=== PATIENT | female | born 1940 | race Caucasian/White ===

== ENCOUNTER → 2018-11-03 11:53 | Outpatient (CLI) | payer OTHER, SELFPAY ==
--- NOTE | 2018-11-03 | DI.CT.S_ITS ---
PROCEDURE: CT ABDOMEN PELVIS WO CON INDICATIONS: ANEMIA UNSPECIFIED TECHNIQUE: After the administration of oral contrast, 5 mm thick sections acquired from the diaphragms to the symphysis. 5 mm coronal and sagittal reformats were performed. For radiation dose reduction, the following was used: automated exposure control, adjustment of mA and/or kV according to patient size. COMPARISON: None. FINDINGS: Image quality: Excellent. ABDOMEN: Lung bases: Emphysematous changes. Heart size is normal. Solid organs: Liver is enlarged and is unremarkable. Gallbladder is unremarkable. Pancreas is normal in size. Spleen is normal in size. No adrenal nodules. Both kidneys are normal in size, without hydronephrosis or nephrolithiasis. Peritoneum and bowel: Bowel loops demonstrate normal wall thickness and caliber. No free fluid or air. Nodes and vessels: No retroperitoneal or mesenteric adenopathy by size criteria. Aorta and inferior vena cava are normal in size. Miscellaneous: No ventral hernias. Large hiatal hernia. There is a low-density structure along the posterior left lateral aspect of the stomach which appears to extend to the gastroesophageal junction. There is no surrounding inflammatory change. PELVIS: Genitourinary: Bladder wall thickness is normal. Miscellaneous: No inguinal hernias or adenopathy. Bones: No suspicious bony lesions. No vertebral body compression fractures. IMPRESSION: 1. Large hiatal hernia. In addition, there is a soft tissue density along the posterior lateral aspect of the stomach which traverses the gastroesophageal junction. This may be a focal loop of bowel. There is no obstruction. Dictated by: Юлия Molina M.D. on 11/03/2018 at 15:53 Approved by: Юлия Molina M.D. on 11/03/2018 at 16:06
== END ==
PROVIDERS: PCP Student in an Organized Health Care Education/Training Program; Visit Provider Student in an Organized Health Care Education/Training Program
DX: D64.9 Anemia, unspecified (principal); K44.9 Diaphragmatic hernia without obstruction or gangrene
CPT/HCPCS: 74176

== ENCOUNTER 2018-11-07 12:39 | Emergency (ER) | payer OTHER, SELFPAY ==
[2018-11-07 12:40] VITALS: BP 136/66; PULSE 74; RESP 18; TEMP 37.1; O2SAT 93
[2018-11-07 13:00] VITALS: BP 120/62; PULSE 71; RESP 17; O2SAT 97
--- NOTE | 2018-11-07 13:03 | DI.RAD.S_ITS ---
PROCEDURE: XR CHEST 1V INDICATIONS: chest pain TECHNIQUE: One view of the chest was acquired. COMPARISON: None. FINDINGS: Surgical changes and devices: None. Lungs and pleura: Lungs are clear. No pleural effusions or pneumothorax. There may be a calcified nodule within the right mid lung. Mediastinum: Mediastinal contours appear normal. Heart size is normal. There is aortic atherosclerosis. There may be a hiatal hernia. Bones and chest wall: No suspicious bony lesions. Overlying soft tissues appear unremarkable. IMPRESSION: 1. No acute cardiopulmonary process is suspected. 2. Probable hiatal hernia. Dictated by: Isaias Berger M.D. on 11/07/2018 at 12:20 Approved by: Isaias Berger M.D. on 11/07/2018 at 12:26
[2018-11-07 13:24] VITALS: BP 120/62; PULSE 71; RESP 20; O2SAT 93
[2018-11-07 13:24] LABS: Bacteria Urine None Seen; RBC Urine None Seen (0-5/HPF)
[2018-11-07 13:25] LABS: Appearance Urine UA CLEAR; Bilirubin Urine UA NEGATIVE (NEGATIVE); Color Urine UA YELLOW; Glucose Urine UA NEGATIVE (Negative); Ketones Urine UA NEGATIVE (NEGATIVE); Leukocyte Esterase Urine UA NEGATIVE (NEGATIVE); Nitrite Urine UA NEGATIVE (Negative); Occult Blood Urine UA NEGATIVE (Negative); Protein Urine UA NEGATIVE (Negative); Specific Gravity Urine UA <=1.005 (1.000-1.035); Urobilinogen Urine UA 0.2 E.U./dL (0.2)
[2018-11-07 13:29] LABS: pH Urine UA 6.5 (4.5-8.0)
[2018-11-07 13:33] LABS: Culture Indicated Urine Cult Not Indicated; Squamous Epithelial Cell Urine 0-1 /HPF (0-5/HPF); WBC Urine 0-1/HPF (0-5/HPF)
[2018-11-07 13:36] LABS: Prothrombin Time 11.2 SECONDS (10.1-12.7)
[2018-11-07 13:38] LABS: PTT Partial Thromboplastin Tim 31 SECONDS (26.4-36.2)
[2018-11-07 13:41] LABS: HEMOLYSIS < 15 (0-50); Sodium 138 mmol/L (137-145)
[2018-11-07 13:42] LABS: Add Manual Diff / Slide Review NO; Basophils Absolute Auto 200 /uL (0-100); Basophils Percent Auto 3.8 % (0-2); Eosinophils Absolute Auto 200 /uL (0-450); Eosinophils Percent Auto 3.5 % (2-4); Hematocrit 31.9 % (36-46); Hemoglobin 10.2 g/dL (12.0-16.0); Lymphocytes Absolute Auto 1100 /uL (1100-4500); Lymphocytes Percent Auto 19.5 % (25-40); Mean Corpuscular Hemoglobin 23.2 PG (26-34); Mean Corpuscular Volume 72.4 fL (80-100); Monocytes Absolute Auto 500 /uL (0-900); Monocytes Percent Auto 8.1 % (3-14); Neutrophils Absolute Auto 3800 /uL (1500-7000); Neutrophils Percent Auto 65.1 % (50-75); Platelet Count 498 X10^3/uL (150-400); Red Blood Cell Count 4.41 X10^6/uL (4.0-5.2); Red Cell Distribution Width 29.6 % (11.6-14.8); White Blood Cell Count 5.9 X10^3/uL (4.5-11.0)
[2018-11-07 13:44] LABS: Alanine Aminotransferase 20 IU/L (9-52); Albumin 3.9 g/dL (3.5-5.0); Albumin Globulin Ratio 1.4 (1.0-2.8); Alkaline Phosphatase 68 U/L (38-126); Aspartate Aminotransferase 24 IU/L (14-36); Bilirubin Total 0.3 mg/dL (0.2-1.3); Blood Urea Nitrogen 11 mg/dL (7-17); Calcium 9.5 mg/dL (8.4-10.2); Carbon Dioxide 28 mmol/L (22-32); Chloride 101 mmol/L (98-107); Creatine Kinase 34 U/L (30-135); Estimated Glomerular Filt Rate > 60.0 mL/min (>60); Globulin 2.8 g/dL (1.7-4.1); Glucose 95 mg/dL (80-110); Lipase 83 U/L (23-300); Potassium 4.4 mmol/L (3.4-5.1); Total Protein 6.7 g/dL (6.3-8.2)
[2018-11-07 13:56] LABS: Troponin I < 0.012 ng/mL (0.01-0.034)
[2018-11-07 13:59] VITALS: BP 139/82; PULSE 70; RESP 20; O2SAT 93
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
[2018-11-07 14:01] LABS: Procalcitonin < 0.05 ng/mL (<0.5)
[2018-11-07 14:02] LABS: B Type Natriuretic Peptide < 100 (<100)
[2018-11-07 14:10] LABS: RBC Morphology NR
[2018-11-07 14:11] LABS: Anisocytosis 2+; Poikilocytosis 2+
--- NOTE | 2018-11-07 16:13 | CM.SWNOTE ---
[employer] Note: Received call from ED staff requesting [employer] for consult for community resources. Patient is 77yr old female brought in by her family with increased agitation. Patient's spouse Juliocesar and daughter/Chayito at bedside. Patient with h/o parkinson's. History: Patient currently moved to [facility] in June 2018 from [place] to be closer to her immediate family. Patient diagnosed with Parkinson's recently and has appointment to see neurologist 11-15-18. PCP listed is Viktoria Martines. Patient alert and oriented x2 at time of visit. Patient denies SI/HI but family does report that patient has mentioned ending everything in the recent past. Patient does admit to being burden to her family. Spouse very emotional during visit. Patient cleared to return to [facility] with additional assisted services. Family comfortable returning home today. Spoke with family about techniques to minimize over stimulation. Family appreciative. They plan to keep close eye on patient and are aware of additional assistance if needed. Placed call to [facility], spoke with nurse/Jazz faxed emergency records to her at [phone]. P: Return to [facility] Assisted Living today. MILLICENT Gudino
== END 2018-11-07 15:47 | disposition home or self-care (01) ==
PROVIDERS: Emergency Provider Emergency Medicine; PCP Student in an Organized Health Care Education/Training Program
DX: G20 Parkinson's disease (principal)
CPT/HCPCS: 36591; 71045; 80053; 81001; 82550; 83605; 83690; 83735; 83880; 84145; 84484; 85025; 85610; 85730; 93005; 99283; 99285

== ENCOUNTER → 2019-05-04 14:59 | Outpatient (ROUT) | payer MEDICARE, SELFPAY ==
[2019-05-04 15:22] LABS: Add Manual Diff / Slide Review NO; Basophils Absolute Auto 100 /uL (0-100); Basophils Percent Auto 1.5 % (0-2); Eosinophils Absolute Auto 100 /uL (0-450); Eosinophils Percent Auto 2.3 % (2-4); Hematocrit 42.3 % (36-46); Hemoglobin 14.1 g/dL (12.0-16.0); Lymphocytes Absolute Auto 1300 /uL (1100-4500); Lymphocytes Percent Auto 19.9 % (25-40); Mean Corpuscular HGB Conc 33.4 % (30-36); Mean Corpuscular Hemoglobin 29.5 PG (26-34); Mean Corpuscular Volume 88.3 fL (80-100); Monocytes Absolute Auto 600 /uL (0-900); Neutrophils Absolute Auto 4200 /uL (1500-7000); Neutrophils Percent Auto 66.3 % (50-75); Platelet Count 298 X10^3/uL (150-400); Red Blood Cell Count 4.79 X10^6/uL (4.0-5.2); Red Cell Distribution Width 15.4 % (11.6-14.8); White Blood Cell Count 6.3 X10^3/uL (4.5-11.0)
== END ==
PROVIDERS: PCP Student in an Organized Health Care Education/Training Program; Visit Provider Internal Medicine
DX: D64.9 Anemia, unspecified (principal)
CPT/HCPCS: 85025

== ENCOUNTER → 2019-06-15 10:07 | Outpatient (CLI) | payer MEDICARE, SELFPAY ==
[2019-06-15 11:30] LABS: Add Manual Diff / Slide Review NO; Basophils Absolute Auto 100 /uL (0-100); Basophils Percent Auto 1.8 % (0-2); Eosinophils Absolute Auto 100 /uL (0-450); Eosinophils Percent Auto 2.5 % (2-4); Hematocrit 42.2 % (36-46); Hemoglobin 14.3 g/dL (12.0-16.0); Lymphocytes Absolute Auto 1100 /uL (1100-4500); Lymphocytes Percent Auto 20.8 % (25-40); Mean Corpuscular Hemoglobin 30.1 PG (26-34); Mean Corpuscular Volume 88.6 fL (80-100); Monocytes Absolute Auto 600 /uL (0-900); Monocytes Percent Auto 11.7 % (3-14); Neutrophils Absolute Auto 3300 /uL (1500-7000); Neutrophils Percent Auto 63.2 % (50-75); Platelet Count 290 X10^3/uL (150-400); Red Blood Cell Count 4.76 X10^6/uL (4.0-5.2); Red Cell Distribution Width 14.6 % (11.6-14.8); White Blood Cell Count 5.2 X10^3/uL (4.5-11.0)
[2019-06-15 11:57] LABS: INR 0.9 (0.9-1.3); Prothrombin Time 10.6 SECONDS (10.1-12.7)
[2019-06-15 12:00] LABS: PTT Partial Thromboplastin Tim 31 SECONDS (26.4-36.2)
== END ==
PROVIDERS: PCP Student in an Organized Health Care Education/Training Program; Referring Provider Psychiatry & Neurology Neurology; Visit Provider Psychiatry & Neurology Neurology
DX: Z01.818 Encounter for other preprocedural examination (principal); G93.89 Other specified disorders of brain; R26.89 Other abnormalities of gait and mobility; N39.41 Urge incontinence
CPT/HCPCS: 36415; 85025; 85610; 85730

== ENCOUNTER → 2019-12-14 13:14 | Outpatient (ROUT) | payer MEDICARE, SELFPAY ==
[2019-12-14 13:36] LABS: Add Manual Diff / Slide Review NO; Basophils Absolute Auto 100 /uL (0-100); Eosinophils Absolute Auto 200 /uL (0-450); Eosinophils Percent Auto 3.2 % (2-4); Hemoglobin 13.6 g/dL (12.0-16.0); Lymphocytes Absolute Auto 1600 /uL (1100-4500); Lymphocytes Percent Auto 25.3 % (25-40); Mean Corpuscular HGB Conc 33.1 % (30-36); Mean Corpuscular Hemoglobin 29.4 PG (26-34); Mean Corpuscular Volume 88.8 fL (80-100); Monocytes Absolute Auto 600 /uL (0-900); Monocytes Percent Auto 9.9 % (3-14); Neutrophils Absolute Auto 3900 /uL (1500-7000); Neutrophils Percent Auto 60.6 % (50-75); Platelet Count 322 X10^3/uL (150-400); Red Blood Cell Count 4.61 X10^6/uL (4.0-5.2); Red Cell Distribution Width 14.3 % (11.6-14.8); White Blood Cell Count 6.4 X10^3/uL (4.5-11.0)
[2019-12-14 13:43] LABS: Alanine Aminotransferase 13 IU/L (<35); Albumin 4.2 g/dL (3.5-5.0); Albumin Globulin Ratio 1.4 (1.0-2.8); Alkaline Phosphatase 85 U/L (38-126); Aspartate Aminotransferase 25 IU/L (14-36); BUN Creatinine Ratio 41.2 (6-22); Bilirubin Total 0.5 mg/dL (0.2-1.3); Blood Urea Nitrogen 21 mg/dL (7-17); Calcium 9.6 mg/dL (8.4-10.2); Carbon Dioxide 32 mmol/L (22-32); Chloride 104 mmol/L (98-107); Cholesterol 196 mg/dL (140-199); Estimated Glomerular Filt Rate > 60.0 mL/min (>60); Globulin 2.9 g/dL (1.7-4.1); Glucose 84 mg/dL (80-110); HDL Cholesterol 68 mg/dL (40-60); HEMOLYSIS < 15 (0-50); LDL Cholesterol Calculated 112 mg/dL (<100); Potassium 4.6 mmol/L (3.4-5.1); Sodium 142 mmol/L (137-145); Total Protein 7.1 g/dL (6.3-8.2); Triglycerides 82 mg/dL (35-150)
== END ==
PROVIDERS: PCP Student in an Organized Health Care Education/Training Program; Visit Provider Student in an Organized Health Care Education/Training Program
DX: E78.00 Pure hypercholesterolemia, unspecified (principal)
CPT/HCPCS: 80053; 80061; 85025

== ENCOUNTER 2020-07-06 22:15 | Emergency (ER) | payer MEDICARE, SELFPAY ==
[2020-07-06] VITALS (7 sets, daily range): BP systolic 129–158; BP diastolic 60–72; PULSE 80–85; RESP 18–20; TEMP 37.3; O2SAT 93–94; BMI 22.6
[2020-07-06 22:37] LABS: Add Manual Diff / Slide Review NO; Basophils Absolute Auto 100 /uL (0-100); Basophils Percent Auto 0.9 % (0-2); Eosinophils Absolute Auto 200 /uL (0-450); Eosinophils Percent Auto 2.1 % (2-4); Hematocrit 40.2 % (36-46); Hemoglobin 13.5 g/dL (12.0-16.0); Lymphocytes Absolute Auto 1900 /uL (1100-4500); Lymphocytes Percent Auto 19.1 % (25-40); Mean Corpuscular HGB Conc 33.6 % (30-36); Mean Corpuscular Hemoglobin 29.8 PG (26-34); Mean Corpuscular Volume 88.6 fL (80-100); Monocytes Absolute Auto 1300 /uL (0-900); Monocytes Percent Auto 12.9 % (3-14); Neutrophils Absolute Auto 6400 /uL (1500-7000); Platelet Count 294 X10^3/uL (150-400); Red Blood Cell Count 4.54 X10^6/uL (4.0-5.2); Red Cell Distribution Width 15.2 % (11.6-14.8); White Blood Cell Count 9.8 X10^3/uL (4.5-11.0)
--- NOTE | 2020-07-06 22:44 | ED.GENADULT ---
HPI - General Adult General Chief complaint: GI Bleed Stated complaint: GI bleed Time Seen by Provider: 07/06/20 22:16 Source: patient, family and EMS Mode of arrival: EMS Limitations: other (Confusion) History of Present Illness HPI narrative: Patient is a 79-year-old female who 10 days ago was admitted to the [facility] here locally. She was brought to the emergency department today because it was reported that 1 hour prior to arrival she had an episode where she was vomiting and there was concern about blood being in the vomit. Patient is not on anticoagulation. She is a DNR/DNI with limited medical interventions. Her paperwork is with her today. Patient stated that she was brought here to the emergency department for evaluation of symptoms that she was having. When I asked her to clarify with these were she stated that she was having some abdominal discomfort and then had a ?episode ?where she vomited several times. She currently denies any nausea. She denies any change in her bowel habits. She denies any abdominal discomfort. Related Data Home Medications Medication Instructions Recorded Confirmed albuterol sulfate [Ventolin HFA] 1 puff INHALATION PRN PRN 11/07/18 11/07/18 docusate sodium [Stool Softener] 100 mg PO DAILY 11/07/18 11/07/18 ferrous sulfate 325 mg PO DAILY 11/07/18 11/07/18 fluticasone propion-salmeterol 1 inh INHALATION BID 11/07/18 11/07/18 [Advair Diskus] glucosamine-chondroitin [Osteo 1 tab PO DAILY 11/07/18 11/07/18 Bi-Flex] multivitamin 1 tab PO DAILY 11/07/18 11/07/18 ranitidine HCl 150 mg PO BEDTIME 11/07/18 11/07/18 trospium 20 mg PO QAM 11/07/18 11/07/18 trospium 40 mg PO QPM 11/07/18 11/07/18 Previous Rx's Medication Instructions Recorded omeprazole magnesium [Prilosec OTC] 20 mg PO DAILY #30 tab 07/07/20 Allergies Allergy/AdvReac Type Severity Reaction Status Date / Time oxybutynin Allergy Unknown Verified 11/07/18 14:00 Review of Systems Constitutional Constitutional: Denies fatigue and Denies headache(s) ENT Ears, Nose, Mouth, and Throat: Denies headache(s) Cardiovascular Cardiovascular: Denies chest pain and Denies dyspnea Respiratory Respiratory: Denies dyspnea Gastrointestinal Gastrointestinal: Denies abdominal pain, Denies melena, Denies hematochezia, Denies change in bowel habits, Reports nausea (Prior to arrival but not currently) and Reports vomiting (Prior to arrival but not currently) Genitourinary Genitourinary: Denies dysuria Genitourinary: Denies dysuria Integumentary/Breasts Skin/Breast: Denies rash Neurologic Neurologic: Denies behavioral changes and Denies headache(s) Psychiatric Psychiatric: Denies behavioral changes Endocrine Endocrine: Denies fatigue Hematologic/Lymphatic On Anticoagulants: No Allergic/Immunologic Allergic/Immunologic: Reports system reviewed and no additional complaints, except as documented Patient History Medical History Atherosclerosis Atrial fibrillation COPD (chronic obstructive pulmonary disease) Depression Hernia Low back pain Mild cognitive impairment Osteoporosis Parkinson disease Surgical History (Updated 11/07/18 @ 14:02 by Meg Mccarthy RN) H/O left inguinal hernia repair Hx of tonsillectomy Social History Smoking Status: Former smoker Smoking Status: Former smoker alcohol intake frequency: 0-2 drinks per day Substance Use Type: does not use Exam Initial Vital Signs Initial Vital Signs: Vital Signs Pulse Oximetry 93 07/06/20 22:18 Const General: cooperative, comfortable, well developed and No ill appearing Limitations: altered mental status HENMT Head: normal to inspection and normocephalic Resp Effort & Inspection: normal respiratory effort Auscultation: clear to auscultation bilaterally Cardio Rate: regular rate Rhythm: regular rhythm GI Inspection: non-distended Palpation: soft and No tender Skin Lesions: no lesions Rashes: no rashes Neuro General: patient alert, patient awake, oriented (Person and place but does not know what year or month) and moves all extremities Extrem General: capillary refill normal and No edema Psych Appearance: grossly normal Scores GCS Rachel coma scale eye opening: Spontaneous [place] coma scale verbal response: Confused [place] coma scale motor response: Obey commands [place] coma scale total score: 14 Course Orders Ordered: ED Orders 07/06/20 22:30 Complete Blood Count AUTO DIFF Stat Comprehensive Metabolic Panel Stat Lipase Stat Partial Thromboplastin Time Stat Prothrombin Time INR Stat EKG-12 Lead Stat 07/07/20 00:45 Hemoglobin and Hematocrit Stat Discontinued Medications Pantoprazole Sodium (Pantoprazole 40 Mg Vial) 40 mg IV NOW ONE Stop: 07/06/20 22:50 Last Admin: 07/06/20 22:57 Dose: 40 mg Documented by: ALEXANDER Vital Signs Vital signs: Vital Signs - 8 hr 07/06/20 22:18 07/06/20 22:25 07/06/20 22:30 Temperature 99.2 F Pulse Rate 80 84 Respiratory Rate 18 20 Blood Pressure 157/72 H 157/72 H Pulse Oximetry 93 93 93 07/06/20 23:00 07/06/20 23:01 07/06/20 23:30 Temperature Pulse Rate 85 84 82 Respiratory Rate Blood Pressure 158/65 H Pulse Oximetry 94 94 93 07/06/20 23:31 07/07/20 00:00 07/07/20 00:30 Temperature Pulse Rate 83 76 75 Respiratory Rate 30 H 22 Blood Pressure 129/60 128/70 146/69 H Pulse Oximetry 93 93 95 07/07/20 01:00 07/07/20 01:01 Temperature Pulse Rate 72 72 Respiratory Rate 28 H 22 Blood Pressure 102/59 L Pulse Oximetry 95 95 Medical Decision Making Lab Data Lab results reviewed: Yes I reviewed the patient's lab results. Result diagrams: 07/07/20 00:45 07/06/20 22:30 Labs: Lab Results 07/06/20 07/06/20 07/06/20 Range/Units 22:30 22:30 22:30 WBC 9.8 (4.5-11.0) X10^3/uL RBC 4.54 (4.0-5.2) X10^6/uL Hgb 13.5 (12.0-16.0) g/dL Hct 40.2 (36-46) % MCV 88.6 (80-100) fL MCH 29.8 (26-34) PG MCHC 33.6 (30-36) % RDW 15.2 H (11.6-14.8) % Plt Count 294 (150-400) X10^3/uL Neut % (Auto) 65.0 (50-75) % Lymph % (Auto) 19.1 L (25-40) % [place] % (Auto) 12.9 (3-14) % Eos % (Auto) 2.1 (2-4) % Baso % (Auto) 0.9 (0-2) % Neut # (Auto) 6400 (9056-2221) /uL Lymph # (Auto) 1900 (7876-5142) /uL [place] # (Auto) 1300 H (0-900) /uL Eos # (Auto) 200 (0-450) /uL Baso # (Auto) 100 (0-100) /uL PT 10.6 (10.1-12.7) SECONDS INR 1.0 (0.9-1.3) APTT 32 (26.4-36.2) SECONDS Sodium 142 (137-145) mmol/L Potassium 4.3 (3.4-5.1) mmol/L Chloride 107 (98-107) mmol/L Carbon Dioxide 28 (22-32) mmol/L BUN 26 H (7-17) mg/dL Creatinine 0.58 (0.52-1.04) mg/dL Estimated GFR > 60.0 (>60) mL/min BUN/Creatinine Ratio 44.8 H (6-22) Glucose 104 (80-110) mg/dL Calcium 9.4 (8.4-10.2) mg/dL Total Bilirubin 0.2 (0.2-1.3) mg/dL AST 25 (14-36) IU/L ALT 14 (<35) IU/L Alkaline Phosphatase 79 (38-126) U/L Total Protein 7.0 (6.3-8.2) g/dL Albumin 4.0 (3.5-5.0) g/dL Globulin 3.0 (1.7-4.1) g/dL Albumin/Globulin Ratio 1.3 (1.0-2.8) Lipase 179 (23-300) U/L 07/07/20 Range/Units 00:45 WBC (4.5-11.0) X10^3/uL RBC (4.0-5.2) X10^6/uL Hgb 12.6 (12.0-16.0) g/dL Hct 39.1 (36-46) % MCV (80-100) fL MCH (26-34) PG MCHC (30-36) % RDW (11.6-14.8) % Plt Count (150-400) X10^3/uL Neut % (Auto) (50-75) % Lymph % (Auto) (25-40) % [place] % (Auto) (3-14) % Eos % (Auto) (2-4) % Baso % (Auto) (0-2) % Neut # (Auto) (0945-6808) /uL Lymph # (Auto) (2135-4574) /uL [place] # (Auto) (0-900) /uL Eos # (Auto) (0-450) /uL Baso # (Auto) (0-100) /uL PT (10.1-12.7) SECONDS INR (0.9-1.3) APTT (26.4-36.2) SECONDS Sodium (137-145) mmol/L Potassium (3.4-5.1) mmol/L Chloride (98-107) mmol/L Carbon Dioxide (22-32) mmol/L BUN (7-17) mg/dL Creatinine (0.52-1.04) mg/dL Estimated GFR (>60) mL/min BUN/Creatinine Ratio (6-22) Glucose (80-110) mg/dL Calcium (8.4-10.2) mg/dL Total Bilirubin (0.2-1.3) mg/dL AST (14-36) IU/L ALT (<35) IU/L Alkaline Phosphatase (38-126) U/L Total Protein (6.3-8.2) g/dL Albumin (3.5-5.0) g/dL Globulin (1.7-4.1) g/dL Albumin/Globulin Ratio (1.0-2.8) Lipase (23-300) U/L ECG Data Attestation: I personally reviewed and interpreted this ECG as follows: Prior ECG tracings: not available for review Interpretation: Sinus rhythm Ventricular rate 85 Frequent PACs Left axis deviation Normal QRS No ST T wave changes MDM Narrative Medical decision making narrative: Patient is oriented to person and place and does seem to have a sense of why she is here but she does not know what year or month it is. I was able to talk with the patient's daughter over the phone he states this is baseline for her. Patient does state that she was currently not having any symptoms at the time my evaluation but of earlier prior to arrival she was having abdominal discomfort in did vomit but no longer has any abdominal pain nor has any desire to vomit. The reports were that the vomit was dark in color. She does have some residual vomit around her mouth which somewhat coffee-ground in appearance. She is not hypotensive. Not tachycardic. Her H&H is unremarkable and a repeat H&H continues to be unremarkable. She has no symptoms. She reports no change in her bowel habits. Does not take anti-inflammatories. According to her med list she has been on a H2 hua in the past but not currently on any reflux medications. Her paperwork is at bedside and does states she is a DNR/DNI with limited interventions. I feel given her clinical presentation today, her labs, her vital signs and her previous decisions about resuscitative efforts that patient can be discharged home. We will place her on a PPI. Her daughter and were at bedside and they agree with this plan. Discharge Plan Departure Patient Disposition: Home Clinical Impression: Hematemesis Instructions: Gastrointestinal Bleeding Activity Restrictions/Additional Instructions: Recommend that she start taking the new prescription Prilosec on a daily basis as directed. Recommend that her primary provider be contacted for a follow-up. Return to the emergency department for any new or worsening symptoms. Prescriptions: New omeprazole magnesium [Prilosec OTC] 20 mg tablet,delayed release (DR/EC) 20 mg PO DAILY Qty: 30 RF: 3 No Action multivitamin Tablet 1 tab PO DAILY RF: 0 ferrous sulfate 325 mg (65 mg iron) Tablet 325 mg PO DAILY RF: 0 ranitidine HCl 150 mg Tablet 150 mg PO BEDTIME RF: 0 fluticasone propion-salmeterol [Advair Diskus] 500-50 mcg/dose Blister With Device 1 inh INHALATION BID RF: 0 docusate sodium [Stool Softener] 100 mg Capsule 100 mg PO DAILY RF: 0 albuterol sulfate [Ventolin HFA] 90 mcg/actuation Hfa Aerosol Inhaler 1 puff inhalation PRN PRN (Reason: Shortness Of Breath) RF: 0 glucosamine-chondroitin [Osteo Bi-Flex] 250-200 mg Tablet 1 tab PO DAILY RF: 0 trospium 20 mg Tablet 20 mg PO QAM RF: 0 trospium 20 mg Tablet 40 mg PO QPM RF: 0 Referrals: Viktoria Martines PA-C [Primary Care Provider] -
[2020-07-06 22:45] LABS: Alanine Aminotransferase 14 IU/L (<35); Albumin Globulin Ratio 1.3 (1.0-2.8); Alkaline Phosphatase 79 U/L (38-126); Aspartate Aminotransferase 25 IU/L (14-36); BUN Creatinine Ratio 44.8 (6-22); Bilirubin Total 0.2 mg/dL (0.2-1.3); Blood Urea Nitrogen 26 mg/dL (7-17); Calcium 9.4 mg/dL (8.4-10.2); Carbon Dioxide 28 mmol/L (22-32); Chloride 107 mmol/L (98-107); Estimated Glomerular Filt Rate > 60.0 mL/min (>60); Glucose 104 mg/dL (80-110); HEMOLYSIS 38 (0-50); Lipase 179 U/L (23-300); Potassium 4.3 mmol/L (3.4-5.1); Sodium 142 mmol/L (137-145)
[2020-07-06 22:46] LABS: Prothrombin Time 10.6 SECONDS (10.1-12.7)
[2020-07-06 22:48] LABS: PTT Partial Thromboplastin Tim 32 SECONDS (26.4-36.2)
[2020-07-06] MEDS: PANTOPRAZOLE 40 MG VIAL IV (22:57)
[2020-07-07] VITALS: BP 128/70; PULSE 76; RESP 30; O2SAT 93
[2020-07-07 00:30] VITALS: BP 146/69; PULSE 75; RESP 22; O2SAT 95
[2020-07-07 01:00] VITALS: PULSE 72; RESP 28; O2SAT 95
[2020-07-07 01:00] LABS: Hemoglobin 12.6 g/dL (12.0-16.0)
[2020-07-07 01:01] VITALS: BP 102/59; PULSE 72; RESP 22; O2SAT 95
[2020-07-07 01:01] LABS: Hematocrit 39.1 % (36-46)
== END 2020-07-07 01:38 | disposition home or self-care (01) ==
PROVIDERS: Emergency Provider Emergency Medicine; PCP Student in an Organized Health Care Education/Training Program
DX: K92.0 Hematemesis (principal)
CPT/HCPCS: 36415; 80053; 83690; 85014; 85018; 85025; 85610; 85730; 93005; 93010; 96374; 99284; C9113

== ENCOUNTER 2020-07-20 14:36 | Emergency (ER) | payer MEDICARE, SELFPAY ==
[2020-07-20 14:41] VITALS: BP 130/62; PULSE 70; RESP 14; TEMP 36.6; O2SAT 94
--- NOTE | 2020-07-20 14:51 | DI.CT.S_ITS ---
PROCEDURE: CT CERVICAL SPINE WO CON INDICATIONS: fall with head and neck pain TECHNIQUE: Noncontrast 3 mm thick sections acquired from the skull base to the T4 level. Sagittal and coronal reformats were then constructed. For radiation dose reduction, the following was used: automated exposure control, adjustment of mA and/or kV according to patient size. COMPARISON: None. FINDINGS: Image quality: Degraded by patient motion artifact. Bones: No fractures or dislocations. Visualized superior ribs are intact. Congenital nonunion of the posterior arch of C1 noted. Spine degenerative disc disease and facet arthropathy. Soft tissues: Prevertebral soft tissues are normal in thickness. No paravertebral hematomas. No apical pneumothoraces. IMPRESSION: No fracture within limitations related to motion artifact. No acute osseous lesion within limitations related to motion artifact. If symptoms and/or clinical suspicion for pathology persists, evaluation with MRI should be considered for further assessment. Dictated by: Charis Taylor MD, PhD on 07/20/2020 at 16:02 Approved by: Charis Taylor MD, PhD on 07/20/2020 at 16:07
--- NOTE | 2020-07-20 14:51 | DI.RAD.S_ITS ---
PROCEDURE: XR SHOULDER LT MIN 2V INDICATIONS: fall with shoulder pain TECHNIQUE: 3 views of the shoulder were acquired. COMPARISON: None. FINDINGS: Bones: No fractures or dislocations. No suspicious bony lesions. Visualized ribs appear intact. Soft tissues: No suspicious soft tissue calcifications. IMPRESSION: No fracture. No osseous lesion. If symptoms and/or clinical suspicion for pathology persists, further assessment with repeat radiographs (7-10 days) or advanced imaging (e.g. CT, MRI or bone scan) should be considered. Dictated by: Charis Taylor MD, PhD on 07/20/2020 at 15:13 Approved by: Charis Taylor MD, PhD on 07/20/2020 at 15:14
--- NOTE | 2020-07-20 14:51 | DI.CT.S_ITS ---
PROCEDURE: CT HEAD/BRAIN WO CON INDICATIONS: fall with head injury TECHNIQUE: Noncontrast 4.5 mm thick angled axial sections acquired from the foramen magnum to the vertex, with coronal and sagittal reformats. For radiation dose reduction, the following was used: automated exposure control, adjustment of mA and/or kV according to patient size. COMPARISON: None. FINDINGS: Image quality: Excellent. CSF spaces: Basal cisterns are patent. No extra-axial fluid collections. Mild ventriculomegaly which could be due to central volume loss versus normal pressure hydrocephalus. Brain: No intracranial bleeds or masses. There is cerebral volume loss for age, with resultant ventricular and sulcal prominence. Small left basal ganglia lacunar infarcts. There are periventricular and deep white matter chronic small vessel ischemic changes. There is intracranial internal carotid artery atherosclerosis. Skull and face: Calvarium and visualized facial bones appear intact, without suspicious lesions. Sinuses: Visualized sinuses and mastoids are clear. IMPRESSION: 1. No acute intracranial disease process. 2. No intracranial hemorrhage. 3. No fracture. 4. Mild ventriculomegaly which could be due to central volume loss versus normal pressure hydrocephalus. Please correlate with clinical data. Dictated by: Charis Taylor MD, PhD on 07/20/2020 at 15:48 Approved by: Charis Taylor MD, PhD on 07/20/2020 at 15:50
--- NOTE | 2020-07-20 15:42 | ED.FALL ---
HPI - Fall General Chief Complaint: Fall Stated Complaint: left arm pain after fall Time Seen by Provider: 07/20/20 14:40 Source: patient and EMS Mode of arrival: EMS History of Present Illness HPI Narrative: 71-year-old female former smoker presents by EMS for evaluation of an unwitnessed fall just prior to arrival. She comes from a local [facility] and complains only of some left shoulder pain. It is unclear exactly how she ended up on the ground but reports would suggest she was not her on the ground for very long. She is pleasantly confused and at her baseline per staff. She has no chest pain or shortness of breath. She has had no change in her medications. She has had no fever or chills MD complaint: fall Onset (ago): minute(s) Fall witnessed: no Place fall occurred: home Loss of consciousness: none Prolonged down time: no Symptoms prior to fall: none Context: tripped/slipped Location of injury - extremities: Left: shoulder Severity: moderate Quality: aching Associated symptoms (after fall): other Related Data Home Medications Medication Instructions Recorded Confirmed albuterol sulfate [Ventolin HFA] 1 puff INHALATION PRN PRN 11/07/18 11/07/18 docusate sodium [Stool Softener] 100 mg PO DAILY 11/07/18 11/07/18 ferrous sulfate 325 mg PO DAILY 11/07/18 11/07/18 fluticasone propion-salmeterol 1 inh INHALATION BID 11/07/18 11/07/18 [Advair Diskus] glucosamine-chondroitin [Osteo 1 tab PO DAILY 11/07/18 11/07/18 Bi-Flex] multivitamin 1 tab PO DAILY 11/07/18 11/07/18 ranitidine HCl 150 mg PO BEDTIME 11/07/18 11/07/18 trospium 20 mg PO QAM 11/07/18 11/07/18 trospium 40 mg PO QPM 11/07/18 11/07/18 Previous Rx's Medication Instructions Recorded omeprazole magnesium [Prilosec OTC] 20 mg PO DAILY #30 tab 07/07/20 Allergies Allergy/AdvReac Type Severity Reaction Status Date / Time oxybutynin Allergy Unknown Verified 07/20/20 14:41 Review of Systems Constitutional Constitutional: Denies chills, Denies fatigue, Denies fever(s), Denies frequent falls, Denies lethargy and Denies weakness Eyes Eyes: Denies change in vision, Denies eye discharge, Denies irritation and Denies loss of vision ENT Ears, Nose, Mouth, and Throat: Denies change in voice, Denies dizziness, Reports neck pain, Denies sore throat and Denies throat swelling Cardiovascular Cardiovascular: Denies chest pain, Denies irregular heart rhythm, Denies lightheadedness, Denies palpitations, Denies dyspnea, Denies dyspnea on exertion and Denies orthopnea Respiratory Respiratory: Denies cough, Denies dyspnea, Denies dyspnea on exertion and Denies wheezing Gastrointestinal Gastrointestinal: Denies abdominal pain, Denies change in bowel habits, Denies diarrhea, Denies nausea and Denies vomiting Musculoskeletal Musculoskeletal: Reports arthralgias, Reports neck pain and Denies numbness Integumentary/Breasts Skin/Breast: Denies pruritus, Denies erythema, Denies rash and Denies wounds Neurologic Neurologic: Denies behavioral changes, Denies confusion, Denies dizziness, Denies frequent falls, Denies loss of vision, Denies numbness and Denies weakness Psychiatric Psychiatric: Denies anxiety, Denies behavioral changes, Denies confusion, Denies depression, Denies homicidal ideation and Denies suicidal ideation Endocrine Endocrine: Denies fatigue, Denies flushing and Denies palpitations Hematologic/Lymphatic Hematologic/Lymphatic: Denies easy bruising Allergic/Immunologic Allergic/Immunologic: Denies urticaria, Denies throat swelling and Denies wheezing Patient History Medical History Atherosclerosis Atrial fibrillation COPD (chronic obstructive pulmonary disease) Depression Hernia Low back pain Mild cognitive impairment Osteoporosis Parkinson disease Surgical History H/O left inguinal hernia repair Hx of tonsillectomy Social History Smoking Status: Former smoker Smoking Status: Former smoker alcohol intake frequency: 0-2 drinks per day Alcohol type: wine Substance Use Type: does not use Exam Narrative Exam Narrative: GENERAL: [79] year old patient appears stated age. Pleasantly confused, GCS 14, no obvious distress HEAD: Atraumatic. Normocephalic. EYES: Pupils equal round and reactive. Extraocular motions intact. No scleral icterus. No injection or drainage. ENT: Nose without bleeding, purulent drainage. Throat without erythema, tonsillar hypertrophy or exudate. Airway patent. NECK: Trachea midline. Non tender CARDIOVASCULAR: Regular rate and rhythm without murmurs, gallops, or rubs. RESPIRATORY: Clear to auscultation. Breath sounds equal bilaterally. No wheezes, rales, or rhonchi. GASTROINTESTINAL: Abdomen soft, non-tender, nondistended. EXTREMITIES: No edema or joint tenderness. BACK: Nontender without deformity or crepitance. No flank tenderness. NEURO: AOx2 (baseline per staff). SKIN: No rash or erythema of visible areas Initial Vital Signs Initial Vital Signs: Vital Signs Temperature 97.8 F 07/20/20 14:41 Pulse Rate 70 07/20/20 14:41 Respiratory Rate 14 07/20/20 14:41 Blood Pressure 130/62 07/20/20 14:41 Pulse Oximetry 94 07/20/20 14:41 Course Orders Ordered: ED Orders 07/20/20 14:51 CT cervical spine wo con Stat CT head/brain wo con Stat XR shoulder LT min 2V Stat Vital Signs Vital signs: Vital Signs - 8 hr 07/20/20 14:41 Temperature 97.8 F Pulse Rate 70 Respiratory Rate 14 Blood Pressure 130/62 Pulse Oximetry 94 MDM - Fall Imaging Data Extremity x-ray #1: Radiologist's Impression: [address] [id number] ReportSigned Patient: Michelle Emerson R#: [id number]: 2Acct:[id number]/Sex: 79 / FDate of Service: 07/20/20Loc: EDAccession Number: [id number] Procedure: XR shoulder LT min 2V Ordering Provider: Ethan Huber D.O. PROCEDURE: XR SHOULDER LT MIN 2V INDICATIONS: fall with shoulder pain TECHNIQUE: 3 views of the shoulder were acquired. COMPARISON: None. FINDINGS: Bones: No fractures or dislocations. No suspicious bony lesions. Visualized ribs appear intact. Soft tissues: No suspicious soft tissue calcifications. IMPRESSION: No fracture. No osseous lesion. If symptoms and/or clinical suspicion for pathology persists, further assessment with repeat radiographs (7-10 days) or advanced imaging (e.g. CT, MRI or bone scan) should be considered. Dictated by: Charis Taylor MD, PhD on 07/20/2020 at 15:13 Approved by: Charis Taylor MD, PhD on 07/20/2020 at 15:14 CT scan - head: Radiologist's Impression: [address] [id number] Scan ReportSigned Patient: Michelle Emerson R#: [id number]: 1940cct:[id number]/Sex: 79 / FDate of Service: 07/20/20Loc: EDAccession Number: [id number] Procedure: CT head/brain wo con Ordering Provider: Ethan Huber D.O. PROCEDURE: CT HEAD/BRAIN WO CON INDICATIONS: fall with head injury TECHNIQUE: Noncontrast 4.5 mm thick angled axial sections acquired from the foramen magnum to the vertex, with coronal and sagittal reformats. For radiation dose reduction, the following was used: automated exposure control, adjustment of mA and/or kV according to patient size. COMPARISON: None. FINDINGS: Image quality: Excellent. CSF spaces: Basal cisterns are patent. No extra-axial fluid collections. Mild ventriculomegaly which could be due to central volume loss versus normal pressure hydrocephalus. Brain: No intracranial bleeds or masses. There is cerebral volume loss for age, with resultant ventricular and sulcal prominence. Small left basal ganglia lacunar infarcts. There are periventricular and deep white matter chronic small vessel ischemic changes. There is intracranial internal carotid artery atherosclerosis. Skull and face: Calvarium and visualized facial bones appear intact, without suspicious lesions. Sinuses: Visualized sinuses and mastoids are clear. IMPRESSION: 1. No acute intracranial disease process. 2. No intracranial hemorrhage. 3. No fracture. 4. Mild ventriculomegaly which could be due to central volume loss versus normal pressure hydrocephalus. Please correlate with clinical data. Dictated by: Charis Taylor MD, PhD on 07/20/2020 at 15:48 Approved by: Charis Taylor MD, PhD on 07/20/2020 at 15:[address]: Radiologist's Impression: [address] [id number] Scan ReportSigned Patient: Michelle Emerson JMR#: [id number]: 2Acct:[id number]/Sex: 79 / FDate of Service: 07/20/20Loc: EDAccession Number: [id number] Procedure: CT cervical spine wo con Ordering Provider: Ethan Huber D.O. PROCEDURE: CT CERVICAL SPINE WO CON INDICATIONS: fall with head and neck pain TECHNIQUE: Noncontrast 3 mm thick sections acquired from the skull base to the T4 level. Sagittal and coronal reformats were then constructed. For radiation dose reduction, the following was used: automated exposure control, adjustment of mA and/or kV according to patient size. COMPARISON: None. FINDINGS: Image quality: Degraded by patient motion artifact. Bones: No fractures or dislocations. Visualized superior ribs are intact. Congenital nonunion of the posterior arch of C1 noted. Spine degenerative disc disease and facet arthropathy. Soft tissues: Prevertebral soft tissues are normal in thickness. No paravertebral hematomas. No apical pneumothoraces. IMPRESSION: No fracture within limitations related to motion artifact. No acute osseous lesion within limitations related to motion artifact. If symptoms and/or clinical suspicion for pathology persists, evaluation with MRI should be considered for further assessment. Dictated by: Charis Taylor MD, PhD on 07/20/2020 at 16:02 Approved by: Charis Tayolr MD, PhD on 07/20/2020 at 16:07 Discharge Plan Departure Patient Disposition: Home Clinical Impression: Fall Acute shoulder pain Qualifiers: Laterality: left Qualified Code(s): M25.512 - Pain in left shoulder Instructions: How to Prevent Falls Activity Restrictions/Additional Instructions: *You have been diagnosed with [unwitnessed fall with left shoulder pain. Your CT scan of brain, cervical spine and x-ray of shoulder are very reassuring. There are no fractures or ominous findings.] *What to do: *Please continue to take your regular medications as directed. [ ] New medication prescriptions sent to your pharmacy: [ ] [ ] New medication written as a paper prescription [ x] No new medications given *Please follow up with your primary care provider in 2-3 days, call for an appointment. Let them know you were seen in the Emergency Department and that we ask that you be seen in follow up. We will electronically transmit a record of today's note if your PCP is in our system *If you do not have a primary care provider please contact the [facility] Resource line at [phone]. They will ask some questions about your medical history and help get you set up with a doctor in the community. *Return to Emergency Department if you should have any new, worsening or concerning symptoms, such as [fever greater than 101 F, shaking chills, worsening pain, persistent vomiting or other bothersome symptoms] Prescriptions: No Action multivitamin Tablet 1 tab PO DAILY RF: 0 ferrous sulfate 325 mg (65 mg iron) Tablet 325 mg PO DAILY RF: 0 ranitidine HCl 150 mg Tablet 150 mg PO BEDTIME RF: 0 fluticasone propion-salmeterol [Advair Diskus] 500-50 mcg/dose Blister With Device 1 inh INHALATION BID RF: 0 docusate sodium [Stool Softener] 100 mg Capsule 100 mg PO DAILY RF: 0 albuterol sulfate [Ventolin HFA] 90 mcg/actuation Hfa Aerosol Inhaler 1 puff inhalation PRN PRN (Reason: Shortness Of Breath) RF: 0 glucosamine-chondroitin [Osteo Bi-Flex] 250-200 mg Tablet 1 tab PO DAILY RF: 0 trospium 20 mg Tablet 20 mg PO QAM RF: 0 trospium 20 mg Tablet 40 mg PO QPM RF: 0 omeprazole magnesium [Prilosec OTC] 20 mg tablet,delayed release (DR/EC) 20 mg PO DAILY Qty: 30 RF: 3 Referrals: Mayela Wade ARNP [Primary Care Provider] -
[2020-07-20 18:00] VITALS: BP 157/74; PULSE 72; RESP 18; O2SAT 93
[2020-07-20 18:31] VITALS: BP 135/61; RESP 18; O2SAT 93
[2020-07-20] MEDS: cephALEXin 250 MG PREPACK 1 BOTTLE MISC (19:27)
[2020-07-20 19:46] VITALS: BP 152/66; PULSE 47; RESP 18; O2SAT 97
--- NOTE | 2020-07-20 19:46 | PC.NURSE ---
Patient unable to stand on her own. Calling for a lift assist to help with Discharge into [facility]
== END 2020-07-20 19:50 | disposition home or self-care (01) ==
PROVIDERS: Emergency Provider Emergency Medicine; PCP Nurse Practitioner Family
DX: M25.512 Pain in left shoulder (principal); M54.2 Cervicalgia; S09.90XA Unspecified injury of head, initial encounter; R41.0 Disorientation, unspecified; W19.XXXA Unspecified fall, initial encounter
CPT/HCPCS: 51701; 70450; 72125; 73030; 81003; 99282; 99284

== ENCOUNTER 2020-08-01 17:00 | Emergency (ER) | payer OTHER, SELFPAY ==
[2020-08-01 17:00] VITALS: BP 143/79; PULSE 47; RESP 14; TEMP 37.1; O2SAT 93; BMI 20.7
--- NOTE | 2020-08-01 17:02 | ED_ITS ---
HPI - Fall General Chief Complaint: Fall Stated Complaint: GLF Time Seen by Provider: 08/01/20 17:02 Source: patient and EMS Mode of arrival: EMS Limitations: no limitations History of Present Illness HPI Narrative: 71-year-old female nonsmoker with noncontributory medical history does not take blood thinners and presents by EMS for evaluation of an unwitnessed ground level fall in which she states she may have struck her head and has some neck pain. She is of poor historian and comes from a local [facility] care facility. She has had no altered mental status, has stable vital signs for her, she is chronically bradycardic per nursing staff. She reports no confusion or blurred vision, no other neurologic symptoms such as numbness, tingling or weakness. She has no vomiting. MD complaint: fall Onset (ago): minute(s) Fall from: other Fall witnessed: no Place fall occurred: home Loss of consciousness: none Prolonged down time: no Symptoms prior to fall: none Context: tripped/slipped Location of injury: head and neck Associated symptoms (after fall): denies Related Data Allergies Allergy/AdvReac Type Severity Reaction Status Date / Time No Known Drug Allergies Allergy Verified 08/01/20 17:09 Review of Systems Constitutional Constitutional: Denies chills, Denies fatigue, Denies fever(s), Denies frequent falls, Denies lethargy and Denies weakness Eyes Eyes: Denies change in vision, Denies eye discharge, Denies irritation and Denies loss of vision ENT Ears, Nose, Mouth, and Throat: Denies change in voice, Denies dizziness, Reports neck pain, Denies sore throat and Denies throat swelling Cardiovascular Cardiovascular: Denies chest pain, Denies irregular heart rhythm, Denies lightheadedness, Denies palpitations, Denies dyspnea, Denies dyspnea on exertion and Denies orthopnea Respiratory Respiratory: Denies cough, Denies dyspnea, Denies dyspnea on exertion and Denies wheezing Gastrointestinal Gastrointestinal: Denies abdominal pain, Denies change in bowel habits, Denies diarrhea, Denies nausea and Denies vomiting Musculoskeletal Musculoskeletal: Reports neck pain and Denies numbness Integumentary/Breasts Skin/Breast: Denies pruritus, Denies erythema, Denies rash and Denies wounds Neurologic Neurologic: Denies behavioral changes, Denies confusion, Denies dizziness, Denies frequent falls, Denies loss of vision, Denies numbness and Denies weakness Psychiatric Psychiatric: Denies anxiety, Denies behavioral changes, Denies confusion, Denies depression, Denies homicidal ideation and Denies suicidal ideation Endocrine Endocrine: Denies fatigue, Denies flushing and Denies palpitations Hematologic/Lymphatic Hematologic/Lymphatic: Denies easy bruising Allergic/Immunologic Allergic/Immunologic: Denies urticaria, Denies throat swelling and Denies wheezing Patient History Social History Smoking Status: Never smoker Smoking Status: Never smoker alcohol intake frequency: 0-2 drinks per day Substance Use Type: does not use Exam Narrative Exam Narrative: GENERAL: [79] year old patient appears stated age. Well- developed patient, in mild distress. GCS 14 HEAD: Atraumatic. Normocephalic. EYES: Pupils equal round and reactive. Extraocular motions intact. No scleral icterus. No injection or drainage. ENT: Nose without bleeding, purulent drainage. Throat without erythema, tonsillar hypertrophy or exudate. Airway patent. NECK: Trachea midline. Non tender CARDIOVASCULAR: Regular rate and rhythm without murmurs, gallops, or rubs. RESPIRATORY: Clear to auscultation. Breath sounds equal bilaterally. No wheezes, rales, or rhonchi. GASTROINTESTINAL: Abdomen soft, non-tender, nondistended. EXTREMITIES: No edema or joint tenderness. BACK: Nontender without deformity or crepitance. No flank tenderness. NEURO: AOx2. SKIN: No rash or erythema of visible areas Initial Vital Signs Initial Vital Signs: Vital Signs Temperature 98.8 F 08/01/20 17:00 Pulse Rate 47 L 08/01/20 17:00 Respiratory Rate 14 08/01/20 17:00 Blood Pressure 143/79 H 08/01/20 17:00 Pulse Oximetry 93 08/01/20 17:00 Course Orders Ordered: ED Orders 08/01/20 17:02 CT cervical spine wo con Stat CT head/brain wo con Stat Vital Signs Vital signs: Vital Signs - 8 hr 08/01/20 17:00 Temperature 98.8 F Pulse Rate 47 L Respiratory Rate 14 Blood Pressure 143/79 H Pulse Oximetry 93 MDM - Fall Imaging Data CT scan - head: Radiologist's Impression: [address] [id number] Scan ReportSigned Patient: Michelle GarciaMR#: [id number]: 1940cct:[id number]/Sex: 79 / FDate of Service: 08/01/20Loc: EDAccession Number: [id number] Procedure: CT head/brain wo con Ordering Provider: Ethan Huber D.O. PROCEDURE: CT HEAD/BRAIN WO CON INDICATIONS: fall with head injury TECHNIQUE: Noncontrast 4.5 mm thick angled axial sections acquired from the foramen magnum to the vertex, with coronal and sagittal reformats. For radiation dose reduction, the following was used: automated exposure control, adjustment of mA and/or kV according to patient size. COMPARISON: [facility], CT, CT HEAD/BRAIN WO CON, 07/20/2020, 14:59. FINDINGS: Cerebrum, Cerebellum and Brainstem: Moderate cerebral and cerebellar volume loss as well as moderate multifocal hypoattenuation in the deep and subcortical white matter present. No acute hemorrhage or mass effect. Steward-white distinction is preserved throughout the exam. Basal cisterns and foramen magnum are clear. Ventricles: Moderate ventriculomegaly out of proportion to amount of cerebral atrophy. Skull Base: The bony sella, pituitary gland and infundibulum are unremarkable. Clivus and craniovertebral relationships are appropriate. Visualized portions of external auditory canals and tympanic cavities are within normal limits. Calvarium and Scalp: No scalp soft tissue swelling. The underlying calvarium is intact without skull fracture or lytic lesion. Paranasal Sinuses: Unremarkable as visualized. No mucosal thickening or retention cyst noted. Mastoids: Unremarkable as visualized. No mastoid effusion present. Other: Atherosclerotic calcification in the cavernous portions of the distal internal carotid arteries are noted. IMPRESSION: 1. No acute intracranial findings. No intracranial hemorrhage or mass effect. 2. Moderate atrophy and chronic ischemic change. 3. Moderate ventriculomegaly out of proportion to amount of cerebral atrophy. Differential would include centralized atrophy and normal pressure hydrocephalus. Consider further evaluation with advanced imaging. Dictated by: Mario Olguin M.D. on 08/01/2020 at 16:39 Approved by: Mario Olguin M.D. on 08/01/2020 at 16:46 CT - cervical spine: Radiologist's Impression: Michelle Garcia 79 F [address] [id number] Scan ReportSigned Patient: Michelle GarciaMR#: [id number]: 1940cct:[id number]/Sex: 79 / FDate of Service: 08/01/20Loc: EDAccession Number: [id number] Procedure: CT cervical spine wo con Ordering Provider: Ethan Huber D.O. PROCEDURE: CT CERVICAL SPINE WO CON INDICATIONS: fall with neck pain TECHNIQUE: Noncontrast 3 mm thick sections acquired from the skull base to the T4 level. Sagittal and coronal reformats were then constructed. For radiation dose reduction, the following was used: automated exposure control, adjustment of mA and/or kV according to patient size. COMPARISON: [facility], CT, CT CERVICAL SPINE WO CON, 07/20/2020, 14:59. FINDINGS: Image quality: Limited by motion artifact Bones: There is congenital nonunion of the posterior arch of C1. Mild to moderate disc space narrowing and facet hypertrophy noted in the mid cervical spine. No fracture or malalignment. Soft tissues: Prevertebral soft tissues are normal in thickness. No paravertebral hematomas. No apical pneumothoraces. Emphysematous changes noted in both lung apices. IMPRESSION: No evidence of fracture or malalignment. Mild to moderate multilevel degenerative disc disease and arthropathy Study limited by motion artifact Dictated by: Mario Olguin M.D. on 08/01/2020 at 16:46 Approved by: Mario Olguin M.D. on 08/01/2020 at 16:57 Discharge Plan Departure Patient Disposition: Home Clinical Impression: Fall Qualifiers: Encounter type: initial encounter Qualified Code(s): W19.XXXA - Unspecified fall, initial encounter Head injury Qualifiers: Encounter type: initial encounter Qualified Code(s): S09.90XA - Unspecified injury of head, initial encounter Instructions: How to Prevent Falls Activity Restrictions/Additional Instructions: *You have been diagnosed with [ fall with no obvious injuries, CT scan of your head and neck are reassuring] *What to do: *Please continue to take your regular medications as directed. [ ] New medication prescriptions sent to your pharmacy: [ ] [ ] New medication written as a paper prescription [ x] No new medications given *Please follow up with your primary care provider in 2-3 days, call for an appointment. Let them know you were seen in the Emergency Department and that we ask that you be seen in follow up. We will electronically transmit a record of today's note if your PCP is in our system *If you do not have a primary care provider please contact the [facility] Resource line at [phone]. They will ask some questions about your medical history and help get you set up with a doctor in the community. *Return to Emergency Department if you should have any new, worsening or concerning symptoms, such as [fever greater than 101 F, shaking chills, worsening pain, persistent vomiting or other bothersome symptoms]
[2020-08-01 19:10] VITALS: BP 143/79; PULSE 41; O2SAT 94
== END 2020-08-01 19:11 | disposition home or self-care (01) ==
LOC: ED 18:11
PROVIDERS: Emergency Provider Emergency Medicine
DX: S09.90XA Unspecified injury of head, initial encounter (principal); M54.2 Cervicalgia; W19.XXXA Unspecified fall, initial encounter
CPT/HCPCS: 70450; 72125; 99283; 99284

== ENCOUNTER 2021-04-10 01:12 | Observation (INO) | payer OTHER, SELFPAY ==
[2021-04-10] VITALS (19 sets, daily range): BP systolic 90–161; BP diastolic 47–95; PULSE 60–115; RESP 16–52; TEMP 31–37; O2SAT 89–97; BMI 17.7
--- NOTE | 2021-04-10 01:18 | DI.RAD.S_ITS ---
PROCEDURE: XR CHEST 1V INDICATIONS: vomiting/aspiration TECHNIQUE: One view of the chest was acquired. COMPARISON: Merged With [facility], CT, CT ABDOMEN PELVIS WO CON, 11/03/2018, 12:37. Merged With [facility], CR, XR CHEST 1V, 11/07/2018, 13:10. FINDINGS: Surgical changes and devices: None. Lungs and pleura: Hyperinflation consistent with COPD. Lungs are clear. No pleural effusions or pneumothorax. Mediastinum: Mediastinal contours appear normal. Heart size is normal. There is a large hiatal hernia. Bones and chest wall: No suspicious bony lesions. Overlying soft tissues appear unremarkable. IMPRESSION: 1. No acute cardiopulmonary disease. 2. COPD. 3. Large hiatal hernia. Dictated by: Jase Shepherd M.D. on 04/10/2021 at 1:52 Approved by: Jase Shepherd M.D. on 04/10/2021 at 1:54
--- NOTE | 2021-04-10 01:22 | ED.SOB ---
HPI - SOB/Dyspnea General Chief Complaint: Shortness of Breath/Dyspnea Stated Complaint: vomiting, poss asp Time Seen by Provider: 04/10/21 01:17 Source: patient, EMS and old records reviewed Mode of arrival: EMS Limitations: other (dementia) History of Present Illness HPI Narrative: This is a 80-year-old female comes emergency department for possible aspiration and difficulty breathing. Wednesday morning patient had some vomiting and suspected aspiration. She had rhonchorous cough throughout the day overnight she started having increasing shortness of breath. Patient denies any shortness of breath at the moment but looks like she is working to breathe. She denies any chest pain or pressure. Per care facility patient has had some nausea and vomiting. She denies any other symptoms currently. She does have a history of COPD and is a former smoker. She currently lives at a memory care facility. Related Data Home Medications Medication Instructions Recorded Confirmed albuterol sulfate 90 mcg/actuation 2 puff INHALATION PRN PRN 11/07/18 04/10/21 aerosol inhaler (Ventolin HFA) docusate sodium 100 mg capsule 200 mg PO BEDTIME 11/07/18 04/10/21 (Stool Softener) ferrous sulfate 325 mg (65 mg 325 mg PO DAILY 11/07/18 04/10/21 iron) tablet fluticasone 500 mcg-salmeterol 50 1 inh INHALATION BID 11/07/18 11/07/18 mcg/dose blistr powdr for inhalation (Advair Diskus) multivitamin 1 tab PO DAILY 11/07/18 11/07/18 ranitidine HCl 150 mg tablet 150 mg PO BEDTIME 11/07/18 11/07/18 trospium 20 mg tablet 20 mg PO QAM 11/07/18 11/07/18 trospium 20 mg tablet 40 mg PO QPM 11/07/18 11/07/18 acetaminophen 325 mg tablet 650 mg PO Q4H PRN 04/10/21 04/10/21 acetaminophen 500 mg tablet 500 mg PO BID 04/10/21 04/10/21 bisacodyl 5 mg tablet 10 mg PO DAILY PRN 04/10/21 04/10/21 citalopram 10 mg tablet 10 mg PO DAILY 04/10/21 04/10/21 fluticasone 500 mcg-salmeterol 50 1 inh INHALATION BID 04/10/21 04/10/21 mcg/dose blistr powdr for inhalation (Wixela Inhub) [id number] C-Mn 500 2 cap PO DAILY 04/10/21 04/10/21 mg-400 mg capsule (Glucosamine Chondroitin Maximum Strength) mirtazapine 30 mg tablet 30 mg PO BEDTIME 04/10/21 04/10/21 omeprazole magnesium 20 mg 40 mg PO DAILY 04/10/21 04/10/21 tablet,delayed release (Prilosec OTC) polyethylene glycol 3350 17 gram 17 g PO DAILY 04/10/21 04/10/21 oral powder packet Previous Rx's Medication Instructions Recorded cephalexin 500 mg capsule 500 mg PO BID #10 cap 07/20/20 Allergies Allergy/AdvReac Type Severity Reaction Status Date / Time oxybutynin Allergy Unknown Verified 08/05/20 09:22 Review of Systems Review of Systems ROS Unobtainable: Unobtainable due to medical condition Patient History Medical History Atherosclerosis Atrial fibrillation COPD (chronic obstructive pulmonary disease) Depression Hernia Low back pain Mild cognitive impairment Osteoporosis Parkinson disease Surgical History H/O left inguinal hernia repair Hx of tonsillectomy Social History Smoking Status: Former smoker Smoking Status: Former smoker alcohol intake frequency: 0-2 drinks per day Alcohol type: wine Substance Use Type: does not use Exam Narrative Exam Narrative: GEN: Cachectic appearing elderly female, alert and oriented to self and location, patient appears to be in moderate distress. HEENT: Atraumatic, pupils are equal round reactive to light, extraocular movements are intact, nares are clear, throat is clear without any exudates, erythema, tonsillar enlargement or uvular deviation HEART: Regular rate and rhythm without murmur, clicks, rubs. No carotid bruits, pulses are equal in upper and lower extremities LUNGS:Lungs has some decreased breath sounds and rhonchi bilaterally, no wheezes. No crackles appreciated. Patient does have tachypnea. She has accessory muscle use. chest moves symmetrically. She has DuoNeb currently running when she arrives with EMS. ABD:bowel sounds normal, soft, non-tender, no guarding, rebound, rigidity, no masses noted, no hepatosplenomegaly :No CVA tenderness MSCL: Non-tender, patient has normal range of motion of her upper extremities but does appear to have some stiffness and a slight tremor on exam. NEURO:CN 2-12 intact, sensation normal. Initial Vital Signs Initial Vital Signs: Vital Signs Blood Pressure 142/61 H 04/10/21 01:45 Course Orders Ordered: ED Orders 04/10/21 01:17 Consult to Respiratory Therapy Evaluate & Treat Arterial Blood Gas Stat EKG-12 Lead Stat 04/10/21 01:18 XR chest 1V Stat 04/10/21 01:20 Blood Culture Stat Complete Blood Count AUTO DIFF Stat Comprehensive Metabolic Panel Stat Lactate (Lactic Acid) Stat Magnesium Stat NT-proBNP (BNP-Adult 18+) Stat Partial Thromboplastin Time Stat Prothrombin Time INR Stat Troponin & CK Cardiac Panel Stat 04/10/21 02:10 COVID19 -Nasal swab/Pre-Proc Stat Discontinued Medications Albuterol/Ipratropium (Albuterol/Ipratropium 3 Ml Ampul) 3 ml INH NOW ONE Stop: 04/10/21 01:18 Last Admin: 04/10/21 02:00 Dose: 3 ml Documented by: Ampicillin Sodium/Sulbactam (Sodium 3 gm/ Sodium Chloride) 100 mls @ 100 mls/hr IV NOW ONE Stop: 04/10/21 01:19 Last Admin: 04/10/21 01:39 Dose: 100 mls/hr Documented by: CTRJOEY Methylprednisolone (Methylprednisolone 125 Mg/2 Ml Vial) 125 mg IV NOW ONE Stop: 04/10/21 01:18 Last Admin: 04/10/21 01:38 Dose: 125 mg Documented by: ANGEL LUIS Reevaluation(s) Reevaluation #1: Patient's work of her breathing appears improved after BiPAP initiated. Vital Signs Vital signs: Vital Signs - 8 hr 04/10/21 01:45 04/10/21 02:00 04/10/21 02:16 Temperature Pulse Rate 101 H 100 H Respiratory Rate 52 H 37 H Blood Pressure 142/61 H Pulse Oximetry 97 04/10/21 02:17 04/10/21 02:22 Temperature 98.6 F Pulse Rate 115 H 100 H Respiratory Rate 28 H 26 H Blood Pressure 151/69 H 161/67 H Pulse Oximetry 89 L MDM - SOB/Dyspnea Lab Data Result diagrams: 04/10/21 01:20 04/10/21 01:20 Labs: Lab Results 04/10/21 04/10/21 04/10/21 Range/Units 01:18 01:20 01:20 WBC 10.9 (4.5-11.0) X10^3/uL RBC 4.28 (4.0-5.2) X10^6/uL Hgb 12.9 (12.0-16.0) g/dL Hct 38.3 (36-46) % MCV 89.6 (80-100) fL MCH 30.1 (26-34) PG MCHC 33.6 (30-36) % RDW 15.3 H (11.6-14.8) % Plt Count 317 (150-400) X10^3/uL Neut % (Auto) 90.0 H (50-75) % Lymph % (Auto) 6.7 L (25-40) % Fannin % (Auto) 2.7 L (3-14) % Eos % (Auto) 0.2 L (2-4) % Baso % (Auto) 0.4 (0-2) % Neut # (Auto) 9800 H (3745-7540) /uL Lymph # (Auto) 700 L (5792-5353) /uL Fannin # (Auto) 300 (0-900) /uL Eos # (Auto) 0 (0-450) /uL Baso # (Auto) 0 (0-100) /uL PT 10.3 (10.1-12.7) SECONDS INR 0.9 (0.9-1.3) APTT 29 (26.4-36.2) SECONDS Sodium (137-145) mmol/L Potassium (3.4-5.1) mmol/L Chloride (98-107) mmol/L Carbon Dioxide (22-32) mmol/L BUN (7-17) mg/dL Creatinine (0.52-1.04) mg/dL Estimated GFR (>60) mL/min BUN/Creatinine Ratio (6-22) Glucose (80-110) mg/dL Lactate (0.7-2.1) mmol/L Calcium (8.4-10.2) mg/dL Magnesium (1.6-2.3) mg/dL Total Bilirubin (0.2-1.3) mg/dL AST (14-36) IU/L ALT (<35) IU/L Alkaline Phosphatase (38-126) U/L Total Creatine Kinase (30-135) U/L CK-MB (CK-2) CK-MB (CK-2) Rel Index Troponin I (0.01-0.034) ng/mL NT-Pro-B Natriuret Pep (<450) pg/mL Total Protein (6.3-8.2) g/dL Albumin (3.5-5.0) g/dL Globulin (1.7-4.1) g/dL Albumin/Globulin Ratio (1.0-2.8) SARS-CoV-2 (PCR) Negative (Negative) 04/10/21 04/10/21 Range/Units 01:20 01:20 WBC (4.5-11.0) X10^3/uL RBC (4.0-5.2) X10^6/uL Hgb (12.0-16.0) g/dL Hct (36-46) % MCV (80-100) fL MCH (26-34) PG MCHC (30-36) % RDW (11.6-14.8) % Plt Count (150-400) X10^3/uL Neut % (Auto) (50-75) % Lymph % (Auto) (25-40) % Fannin % (Auto) (3-14) % Eos % (Auto) (2-4) % Baso % (Auto) (0-2) % Neut # (Auto) (2495-3300) /uL Lymph # (Auto) (3636-5636) /uL Fannin # (Auto) (0-900) /uL Eos # (Auto) (0-450) /uL Baso # (Auto) (0-100) /uL PT (10.1-12.7) SECONDS INR (0.9-1.3) APTT (26.4-36.2) SECONDS Sodium 139 (137-145) mmol/L Potassium 4.1 (3.4-5.1) mmol/L Chloride 103 (98-107) mmol/L Carbon Dioxide 29 (22-32) mmol/L BUN 26 H (7-17) mg/dL Creatinine 0.56 (0.52-1.04) mg/dL Estimated GFR > 60.0 (>60) mL/min BUN/Creatinine Ratio 46.4 H (6-22) Glucose 140 H (80-110) mg/dL Lactate 2.4 H (0.7-2.1) mmol/L Calcium 9.2 (8.4-10.2) mg/dL Magnesium 1.7 (1.6-2.3) mg/dL Total Bilirubin 0.4 (0.2-1.3) mg/dL AST 30 (14-36) IU/L ALT 17 (<35) IU/L Alkaline Phosphatase 56 (38-126) U/L Total Creatine Kinase 49 (30-135) U/L CK-MB (CK-2) TNP CK-MB (CK-2) Rel Index TNP Troponin I < 0.012 (0.01-0.034) ng/mL NT-Pro-B Natriuret Pep 987 H (<450) pg/mL Total Protein 7.8 (6.3-8.2) g/dL Albumin 4.5 (3.5-5.0) g/dL Globulin 3.3 (1.7-4.1) g/dL Albumin/Globulin Ratio 1.4 (1.0-2.8) SARS-CoV-2 (PCR) (Negative) Imaging Data Chest x-ray: Radiologist's Impression: [address] [address] XRay Report Signed Patient: Michelle Emerson MR#: [id number] : 1940 Acct:[id number] Age/Sex: 80 / F Date of Service: 04/10/21 Loc: ED Accession Number: [id number] ?? Procedure: XR chest 1V Ordering Provider: Pastora Pritchard D.O. PROCEDURE:? XR CHEST 1V ? INDICATIONS:? vomiting/aspiration ? TECHNIQUE:? One view of the chest was acquired.? ? COMPARISON:? [facility], CT, CT ABDOMEN PELVIS WO CON, 11/03/2018, 12:37.? [facility], CR, XR CHEST 1V, 11/07/2018, 13:10. ? FINDINGS:? ? Surgical changes and devices:? None.? ? Lungs and pleura:? Hyperinflation consistent with COPD.? Lungs are clear.? No pleural effusions or pneumothorax.? ? Mediastinum:? Mediastinal contours appear normal.? Heart size is normal.? There is a large hiatal hernia. ? Bones and chest wall:? No suspicious bony lesions.? Overlying soft tissues appear unremarkable.? ? IMPRESSION:? ? 1. No acute cardiopulmonary disease. 2. COPD. 3. Large hiatal hernia.? ? ? Dictated by: Jase Shepherd M.D. on 04/10/2021 at 1:52 ? ? Approved by: Jase Shepherd M.D. on 04/10/2021 at 1:54?? MDM Narrative Medical decision making narrative: This is a 80-year-old female who comes to the emergency department with suspected aspiration with dyspnea and history of COPD. Patient does have some rhonchi. She has not had active vomiting in the department but did spit out some clear phlegm. She had quite a bit of work of breathing and has improvement with BiPAP. She arrives with a POLST form that documents DNR/DNI with limited treatment. Attempted to contact the guardian/sore get or other photoresist contact printer her daughter at the number provided and appears to be a fax number. Also contacted the number for patient's spouse Filemon Emerson in our EMR @ [phone]. He confirms patient's POLST status. He is okay with bipap at this time. Majority of patient's workup has returned but COVID swab is still pending and patient at this time is plan to be admitted. He states that both he he helps makes decisions for his their daughter Jade also helps with decisions. If they need to reach his daughter they can reach out to his son-in-law at [phone] Jan Fabiana and he can get a hold of daughter or . Critical Care Time Critical Care Time Attestation: The high probability of a clinically significant, sudden or life threatening deterioration of the [cardiac,pulm] system(s) required my full and direct attention, intervention and personal management. The aggregate critical care time was [] minutes. This time is in addition to time spent performing reported procedures but includes the following: [x] Data Review and interpretation [x] Patient assessment and monitoring of vital signs [x] Documentation [x] Medication orders and management Discharge Plan Departure Clinical Impression: Acute exacerbation of chronic obstructive pulmonary disease Prescriptions: No Action cephalexin 500 mg capsule 500 mg PO BID Qty: 10 0RF multivitamin Tablet 1 tab PO DAILY 0RF ferrous sulfate 325 mg (65 mg iron) Tablet 325 mg PO DAILY 0RF ranitidine HCl 150 mg Tablet 150 mg PO BEDTIME 0RF fluticasone propion-salmeterol [Advair Diskus] 500-50 mcg/dose Blister With Device 1 inh INHALATION BID 0RF docusate sodium [Stool Softener] 100 mg Capsule 200 mg PO BEDTIME 0RF albuterol sulfate [Ventolin HFA] 90 mcg/actuation Hfa Aerosol Inhaler 2 puff inhalation PRN PRN (Reason: Shortness Of Breath) 0RF Rx Instructions: rescue inhaler trospium 20 mg Tablet 20 mg PO QAM 0RF trospium 20 mg Tablet 40 mg PO QPM 0RF acetaminophen 325 mg Tablet 650 mg PO Q4H PRN (Reason: Pain (Scale Score 1-3)) 0RF polyethylene glycol 3350 17 gram Powder In Packet 17 g PO DAILY 0RF citalopram 10 mg Tablet 10 mg PO DAILY 0RF acetaminophen 500 mg Tablet 500 mg PO BID 0RF mirtazapine 30 mg Tablet 30 mg PO BEDTIME 0RF fluticasone propion-salmeterol [Wixela Inhub] 500-50 mcg/dose Blister With Device 1 inh INHALATION BID 0RF bisacodyl 5 mg Tablet 10 mg PO DAILY PRN (Reason: Constipation) 0RF [id number] C-Mn [Glucosamine Chondroitin MaxStr] 500-400 mg Capsule 2 cap PO DAILY 0RF omeprazole magnesium [Prilosec OTC] 20 mg tablet,delayed release (DR/EC) 40 mg PO DAILY 0RF Referrals: Mayela Wade ARNP [Primary Care Provider] -
[2021-04-10] MEDS: methylPREDNISolone 125 MG/2 ML VIAL IV (01:38)
[2021-04-10] MEDS: AMPICILLIN/SULBACTAM 3 GM 3 GM in SODIUM CHLORIDE 0.9% 100 ML IV (01:39)
[2021-04-10 01:40] LABS: INR 0.9 (0.9-1.3); Prothrombin Time 10.3 SECONDS (10.1-12.7)
[2021-04-10 01:42] LABS: Add Manual Diff / Slide Review NO; Basophils Absolute Auto 0 /uL (0-100); Basophils Percent Auto 0.4 % (0-2); Eosinophils Absolute Auto 0 /uL (0-450); Eosinophils Percent Auto 0.2 % (2-4); Hematocrit 38.3 % (36-46); Hemoglobin 12.9 g/dL (12.0-16.0); Lymphocytes Absolute Auto 700 /uL (1100-4500); Lymphocytes Percent Auto 6.7 % (25-40); Mean Corpuscular HGB Conc 33.6 % (30-36); Mean Corpuscular Hemoglobin 30.1 PG (26-34); Mean Corpuscular Volume 89.6 fL (80-100); Monocytes Absolute Auto 300 /uL (0-900); Monocytes Percent Auto 2.7 % (3-14); Neutrophils Absolute Auto 9800 /uL (1500-7000); Platelet Count 317 X10^3/uL (150-400); Red Blood Cell Count 4.28 X10^6/uL (4.0-5.2); Red Cell Distribution Width 15.3 % (11.6-14.8); White Blood Cell Count 10.9 X10^3/uL (4.5-11.0)
[2021-04-10 01:43] LABS: PTT Partial Thromboplastin Tim 29 SECONDS (26.4-36.2)
[2021-04-10 01:44] LABS: Lactate (Lactic Acid) 2.4 mmol/L (0.7-2.1)
[2021-04-10 01:46] LABS: Alanine Aminotransferase 17 IU/L (<35); Albumin 4.5 g/dL (3.5-5.0); Albumin Globulin Ratio 1.4 (1.0-2.8); Alkaline Phosphatase 56 U/L (38-126); Aspartate Aminotransferase 30 IU/L (14-36); BUN Creatinine Ratio 46.4 (6-22); Bilirubin Total 0.4 mg/dL (0.2-1.3); Blood Urea Nitrogen 26 mg/dL (7-17); Calcium 9.2 mg/dL (8.4-10.2); Carbon Dioxide 29 mmol/L (22-32); Chloride 103 mmol/L (98-107); Creatine Kinase 49 U/L (30-135); Estimated Glomerular Filt Rate > 60.0 mL/min (>60); Globulin 3.3 g/dL (1.7-4.1); Glucose 140 mg/dL (80-110); HEMOLYSIS < 15 (0-50); Magnesium 1.7 mg/dL (1.6-2.3); Potassium 4.1 mmol/L (3.4-5.1); Sodium 139 mmol/L (137-145); Total Protein 7.8 g/dL (6.3-8.2)
[2021-04-10 01:57] LABS: NT-proBNP (BNP-Adult 18+) 987 pg/mL (<450); Troponin I < 0.012 ng/mL (0.01-0.034)
[2021-04-10] MEDS: ALBUTEROL/IPRATROPIUM 3 ML AMPUL INH ×4 (02:00→20:56)
[2021-04-10 02:33] LABS: COVID19 -Nasal RAPID Negative (Negative)
[2021-04-10 03:22] LABS: PCO2 ABG 42.9 mmHg (35-45); pH ABG 7.37 (7.35-7.45)
[2021-04-10 03:23] LABS: Fractionated Inspired Oxygen 40; HCO3 ABG 25 mmol/L (22-26); Oxygen Saturation ABG 99 % (95-100); PO2 ABG 155 mmHg (80-100); TCO2 ABG 26 mmol/L (21-31)
[2021-04-10 03:34] LABS: Reflexed Lactate in 2 Hours Y
[2021-04-10 04:09] LABS: Procalcitonin 0.23 ng/mL (<0.5)
[2021-04-10 04:13] LABS: Lactate 2HR (Lactic Acid Rflx) 1.2 mmol/L (0.7-2.1)
[2021-04-10 05:37] LABS: Adenovirus F 40/41 Not Detected (Not Detect); Astrovirus Not Detected (Not Detect); Campylobacter Not Detected (Not Detect); Clostridium difficile toxin AB Not Detected (Not Detect); Cryptosporidium Not Detected (Not Detect); Cyclospora cayetanensis Not Detected (Not Detect); Entamoeba histolytica Not Detected (Not Detect); Enteroaggregative E.coli Not Detected (Not Detect); Enteropathogenic E.coli Not Detected (Not Detect); Enterotoxigenic E.coli It/st Not Detected (Not Detect); Giardia lamblia Not Detected (Not Detect); Norovirus GI/GII Detected (Not Detect); Plesiomonsa shigelloides Not Detected (Not Detect); Rotavirus A Not Detected (Not Detect); Salmonella Not Detected (Not Detect); Sapovirus Not Detected (Not Detect); Shiga-like toxin-prod E.coli Not Detected (Not Detect); Shigella/Enteroinvasive E.coli Not Detected (Not Detect); Vibrio Not Detected (Not Detect); Vibrio cholerae Not Detected (Not Detect); Yersinia enterocolitica Not Detected (Not Detect)
--- NOTE | 2021-04-10 05:53 | P.HP_ITS ---
History of Present Illness History of Present Illness Date Patient Seen: 04/10/21 Time Patient Seen: 05:54 Date of Onset of Symptoms: 04/10/21 Chief complaint: COPD exacerbation Narrative: Michelle Garcia a 80-year-old female resident of [facility] with a history of COPD and is a former smoker was brought into the emergency department for possible aspiration and difficulty breathing.? Wednesday morning patient reportedly vomited and staff suspected aspiration.? She had rhonchorous cough throughout the day overnight when she started having increasing shortness of breath.? Patient denied any shortness of breath on presentation to the ED, but was having labored breathing.? She denies any chest pain, pressure, nausea or vomiting, dysurea, diarrhea or constipation.? The facility reported that patient has had some nausea and vomiting to the Ed provider.? She denies any other symptoms currently.? She does have current diagnosis of dementia, atrial fibrillation, and COPD. Chest x-ray ordered in the emergency department indicated hyperinflation consistent with COPD with no pleural effusions. She initially had an oxygen saturation in the high 80s upon presentation to the emergency department and was administered BiPAP in the emergency department and her saturations increased to normal No acute cardio pulmonary disease. Patient is afebrile, blood pressure 105/53, heart rate 82, respiratory rate 23, oxygen saturation 97% currently on 2% nasal cannula, she weighs 41 kg. A CBC is unremarkable, platelet count 317, ABG was within normal limits, BUN is 26, glucose 140, lactate was 2.4 in the emergency department and repeat was 1.2, proBNP was 987, procalcitonin was 0.23, stool culture was positive for norovirus, COVID-19 PCR is negative. Patient History Medical History Atherosclerosis Atrial fibrillation COPD (chronic obstructive pulmonary disease) Depression Hernia Low back pain Mild cognitive impairment Osteoporosis Parkinson disease Surgical History H/O left inguinal hernia repair Hx of tonsillectomy Family & Social History Family History Father Lung cancer Mother Hypertension Lung cancer Daughter Ovarian cancer Other Congestive heart failure Tobacco & Substance use: Smoking Status Former smoker alcohol intake frequency 0-2 drinks per day Substance Use Type does not use Meds Home Medications and Allergies Home Medications Medication Instructions Recorded Confirmed Type albuterol sulfate 90 mcg/actuation 2 puff INHALATION PRN PRN 11/07/18 04/10/21 History aerosol inhaler (Ventolin HFA) docusate sodium 100 mg capsule 200 mg PO BEDTIME 11/07/18 04/10/21 History (Stool Softener) ferrous sulfate 325 mg (65 mg 325 mg PO DAILY 11/07/18 04/10/21 History iron) tablet fluticasone 500 mcg-salmeterol 50 1 inh INHALATION BID 11/07/18 11/07/18 History mcg/dose blistr powdr for inhalation (Advair Diskus) multivitamin 1 tab PO DAILY 11/07/18 11/07/18 History ranitidine HCl 150 mg tablet 150 mg PO BEDTIME 11/07/18 11/07/18 History trospium 20 mg tablet 20 mg PO QAM 11/07/18 11/07/18 History trospium 20 mg tablet 40 mg PO QPM 11/07/18 11/07/18 History cephalexin 500 mg capsule 500 mg PO BID #10 cap 07/20/20 Rx acetaminophen 325 mg tablet 650 mg PO Q4H PRN 04/10/21 04/10/21 History acetaminophen 500 mg tablet 500 mg PO BID 04/10/21 04/10/21 History bisacodyl 5 mg tablet 10 mg PO DAILY PRN 04/10/21 04/10/21 History citalopram 10 mg tablet 10 mg PO DAILY 04/10/21 04/10/21 History fluticasone 500 mcg-salmeterol 50 1 inh INHALATION BID 04/10/21 04/10/21 History mcg/dose blistr powdr for inhalation (Wixela Inhub) [id number] C-Mn 500 2 cap PO DAILY 04/10/21 04/10/21 History mg-400 mg capsule (Glucosamine Chondroitin Maximum Strength) mirtazapine 30 mg tablet 30 mg PO BEDTIME 04/10/21 04/10/21 History omeprazole magnesium 20 mg 40 mg PO DAILY 04/10/21 04/10/21 History tablet,delayed release (Prilosec OTC) polyethylene glycol 3350 17 gram 17 g PO DAILY 04/10/21 04/10/21 History oral powder packet Allergies Allergy/AdvReac Type Severity Reaction Status Date / Time oxybutynin Allergy Unknown Verified 08/05/20 09:22 Review of Systems Review of Systems ROS: Yes All systems reviewed with the patient and are negative except as otherwise documented Exam Vital Signs (past 8 hours): - 04/10/21 01:45 04/10/21 02:00 04/10/21 02:16 Temperature Pulse Rate 101 H 100 H Respiratory Rate 52 H 37 H Blood Pressure 142/61 H Pulse Oximetry 97 04/10/21 02:17 04/10/21 02:22 04/10/21 02:30 Temperature 98.6 F Pulse Rate 115 H 100 H 97 H Respiratory Rate 28 H 26 H 35 H Blood Pressure 151/69 H 161/67 H 139/63 Pulse Oximetry 89 L 96 04/10/21 03:00 04/10/21 03:05 04/10/21 03:30 Temperature Pulse Rate 95 H 94 H 90 Respiratory Rate 22 20 Blood Pressure 132/62 123/95 H Pulse Oximetry 95 95 96 04/10/21 04:00 04/10/21 04:30 04/10/21 05:00 Temperature Pulse Rate 86 86 82 Respiratory Rate 20 26 H 23 Blood Pressure 132/94 H 118/71 105/53 L Pulse Oximetry 92 96 96 Fraction of Inspired Oxygen 40 Oxygen Delivery Method BiPAP Narrative Exam Narrative: Gen: Alert, oriented, very thin y.o. 80 female, NAD HEENT: normocephalic, atraumatic, conjunctiva clear, sclera non-icteric, oral m ucosa pink and moist Neck: supple, full ROM, no JVD, trachea is midline Resp: Diminished lung sounds no wheezes or rhonchi, non-labored breathing CV: RRR, no murmur or rubs Abd: soft, non-tender, normoactive BTs Skin: no lesions or rashes, dry and intact Neuro: Alert and oriented X 3 w/no focal deficits. Speech clear and coherent. Extremities: moves all 4 extremities, is ambulatory, negative Ananth?s sign Psyche: normal mood and affect. Objective Labs Result Diagrams: 04/10/21 01:20 04/10/21 01:20 Labs: Laboratory Results - last 24 hr 04/10/21 04/10/21 04/10/21 01:18 01:20 01:20 WBC 10.9 RBC 4.28 Hgb 12.9 Hct 38.3 MCV 89.6 MCH 30.1 MCHC 33.6 RDW 15.3 H Plt Count 317 Neut % (Auto) 90.0 H Lymph % (Auto) 6.7 L [place] % (Auto) 2.7 L Eos % (Auto) 0.2 L Baso % (Auto) 0.4 Neut # (Auto) 9800 H Lymph # (Auto) 700 L [place] # (Auto) 300 Eos # (Auto) 0 Baso # (Auto) 0 PT 10.3 INR 0.9 APTT 29 ABG pH ABG pCO2 ABG pO2 ABG HCO3 ABG Total CO2 ABG O2 Saturation ABG Base Excess FiO2 Sodium Potassium Chloride Carbon Dioxide BUN Creatinine Estimated GFR BUN/Creatinine Ratio Glucose Lactate Calcium Magnesium Total Bilirubin AST ALT Alkaline Phosphatase Total Creatine Kinase CK-MB (CK-2) CK-MB (CK-2) Rel Index Troponin I NT-Pro-B Natriuret Pep Total Protein Albumin Globulin Albumin/Globulin Ratio Procalcitonin Stl C. cayetanensis PCR Stool Rotavirus (PCR) Stool Adenovirus (PCR) Stool Astrovirus (PCR) Stool Cryptosporidium PCR Stl E.coli Shiga Tox PCR St Sh/Enteroin Ecoli PCR Stool E coli O157 PCR Stl Enterotoxigenic E PCR Stool EPEC (PCR) Stl E. histolytica PCR Stool Giardia Lamblia PCR Stool Sapovirus (PCR) Stl P. shigelloides PCR St Y.enterocolitica PCR Stool Vibrio (PCR) Stl Vibrio cholerae PCR Stl Enteroaggr Ecoli PCR Stl Norovirus GI/GII PCR Campylobacter (PCR) C. difficile Tox (PCR) SARS-CoV-2 (PCR) Negative Salmonella (PCR) 04/10/21 04/10/21 04/10/21 01:20 01:20 01:20 WBC RBC Hgb Hct MCV MCH MCHC RDW Plt Count Neut % (Auto) Lymph % (Auto) [place] % (Auto) Eos % (Auto) Baso % (Auto) Neut # (Auto) Lymph # (Auto) [place] # (Auto) Eos # (Auto) Baso # (Auto) PT INR APTT ABG pH ABG pCO2 ABG pO2 ABG HCO3 ABG Total CO2 ABG O2 Saturation ABG Base Excess FiO2 Sodium 139 Potassium 4.1 Chloride 103 Carbon Dioxide 29 BUN 26 H Creatinine 0.56 Estimated GFR > 60.0 BUN/Creatinine Ratio 46.4 H Glucose 140 H Lactate 2.4 H Calcium 9.2 Magnesium 1.7 Total Bilirubin 0.4 AST 30 ALT 17 Alkaline Phosphatase 56 Total Creatine Kinase 49 CK-MB (CK-2) TNP CK-MB (CK-2) Rel Index TNP Troponin I < 0.012 NT-Pro-B Natriuret Pep 987 H Total Protein 7.8 Albumin 4.5 Globulin 3.3 Albumin/Globulin Ratio 1.4 Procalcitonin 0.23 Stl C. cayetanensis PCR Stool Rotavirus (PCR) Stool Adenovirus (PCR) Stool Astrovirus (PCR) Stool Cryptosporidium PCR Stl E.coli Shiga Tox PCR St Sh/Enteroin Ecoli PCR Stool E coli O157 PCR Stl Enterotoxigenic E PCR Stool EPEC (PCR) Stl E. histolytica PCR Stool Giardia Lamblia PCR Stool Sapovirus (PCR) Stl P. shigelloides PCR St Y.enterocolitica PCR Stool Vibrio (PCR) Stl Vibrio cholerae PCR Stl Enteroaggr Ecoli PCR Stl Norovirus GI/GII PCR Campylobacter (PCR) C. difficile Tox (PCR) SARS-CoV-2 (PCR) Salmonella (PCR) 04/10/21 04/10/21 04/10/21 02:38 03:00 03:54 WBC RBC Hgb Hct MCV MCH MCHC RDW Plt Count Neut % (Auto) Lymph % (Auto) [place] % (Auto) Eos % (Auto) Baso % (Auto) Neut # (Auto) Lymph # (Auto) [place] # (Auto) Eos # (Auto) Baso # (Auto) PT INR APTT ABG pH 7.37 ABG pCO2 42.9 ABG pO2 155 H ABG HCO3 25 ABG Total CO2 26 ABG O2 Saturation 99 ABG Base Excess -1.0 FiO2 40 Sodium Potassium Chloride Carbon Dioxide BUN Creatinine Estimated GFR BUN/Creatinine Ratio Glucose Lactate 1.2 Calcium Magnesium Total Bilirubin AST ALT Alkaline Phosphatase Total Creatine Kinase CK-MB (CK-2) CK-MB (CK-2) Rel Index Troponin I NT-Pro-B Natriuret Pep Total Protein Albumin Globulin Albumin/Globulin Ratio Procalcitonin Stl C. cayetanensis PCR Not detected Stool Rotavirus (PCR) Not detected Stool Adenovirus (PCR) Not detected Stool Astrovirus (PCR) Not detected Stool Cryptosporidium PCR Not detected Stl E.coli Shiga Tox PCR Not detected St Sh/Enteroin Ecoli PCR Not detected Stool E coli O157 PCR Not Reportable Stl Enterotoxigenic E PCR Not detected Stool EPEC (PCR) Not detected Stl E. histolytica PCR Not detected Stool Giardia Lamblia PCR Not detected Stool Sapovirus (PCR) Not detected Stl P. shigelloides PCR Not detected St Y.enterocolitica PCR Not detected Stool Vibrio (PCR) Not detected Stl Vibrio cholerae PCR Not detected Stl Enteroaggr Ecoli PCR Not detected Stl Norovirus GI/GII PCR Detected H Campylobacter (PCR) Not detected C. difficile Tox (PCR) Not detected SARS-CoV-2 (PCR) Salmonella (PCR) Not detected Assessment & Plan Assessment & Plan narrative: Michelle Garcia will be placed in observation for a COPD exacerbation and attempts will be made to discharge her back to her facility on home oxygen. She was also found to have norovirus so her facility will need to have her placed in isolation as well as monitor for exposure to other residents. 1. Acute respiratory failure secondary to COPD exacerbation, acute, present on admission * Patient was given BiPAP in the emergency department apparently did well and was able to be deescalated to oxygen with by nasal cannula * She is written for RT to provide albuterol q.3 hours and or albuterol/ipratropium q.3 hours as needed for shortness of breath 2. Positive norovirus, present on admission * Contact precautions * I have started her on IV fluids normal saline at 75 mL/hour to avoid volume overload * She may require Imodium if she has significant diarrhea, was unclear as to how long if at all she has been having diarrhea, she apparently had a diarrheal episode in the emergency department 3. Dementia, chronic * Continue home doses of citalopram and mirtazapine VTE Prophylaxis: Wells risk score 0 Enoxaparin 40 mg subQ once daily Bilateral SCDs Patient is placed into observation as her stay is not expected to exceed 2 midnights. FEN: IV fluids: Normal saline at 75 mL/hour diet: General, labs: CBC, C/BMP, liver enzymes, Mag, PT/INR Consultants None Dispo: Discharge back to [facility] Code status: DNR/DNI per the patient's POLST. [X] I have utilized all available immediate resources to obtain, update, or review of the patient's current medications COVID-19 COVID-19 status: Negative Result date/Date tested (Pos, Neg/Pending): 04/10/21 Time Spent With Patient Critical Care time: I spent a total of [] minutes of critical care time on this patient's care today; this time is exclusive of procedural time. Scores Wells' Criteria for PE Clinical signs and symptoms of DVT: No PE is #1 Dx or equally likely: No Heart rate > 100: No Immobilization at least 3 days or surg in previous 4 weeks: No History of PE or DVT: No Hemoptysis: No Malignancy w/Treatment within 6 months or palliative: No Wells' PE Score total: 0 Quality VTE Deep Vein Thrombosis/Pulmonary Embolism Present on Admission: No MIPS - Admit I confirm the patient?s Advance Care Plan is present, Code status is documented, Surrogate decision maker is in patient?s record [If Yes, STOP here]: Yes MIPS - DC The patient has current or prior documentation of left ventricular ejection fraction (LVEF) less than 40%, or moderate or severely depressed left v entricular systolic function.: No
--- NOTE | 2021-04-10 06:20 | PC.NURSE ---
Pt. arrived to the floor via stretcher. Pt. is a&ox2, denies pain. Unable to obtain much information from pt. due to memory loss. Pt. came from memory care. Call light within reach, bed alarm activated. Pt. now also placed on contact precaution for norovirus.
[2021-04-10] MEDS: SODIUM CHLORIDE 0.9% 1,000 ML 75 ML IV ×2 (06:27→18:58)
[2021-04-10] MEDS: AZITHROMYCIN 250 MG TABLET 500 MG PO (09:51)
[2021-04-10] MEDS: ENOXAPARIN 30 MG/0.3 ML SYRINGE SUBCUT (09:52)
[2021-04-10 10:34] LABS: Add Manual Diff / Slide Review NO; Basophils Absolute Auto 0 /uL (0-100); Basophils Percent Auto 0.6 % (0-2); Eosinophils Absolute Auto 0 /uL (0-450); Lymphocytes Absolute Auto 400 /uL (1100-4500); Lymphocytes Percent Auto 4.7 % (25-40); Mean Corpuscular HGB Conc 33.2 % (30-36); Mean Corpuscular Hemoglobin 29.6 PG (26-34); Mean Corpuscular Volume 89.3 fL (80-100); Monocytes Absolute Auto 0 /uL (0-900); Monocytes Percent Auto 0.6 % (3-14); Neutrophils Absolute Auto 8000 /uL (1500-7000); Neutrophils Percent Auto 94.1 % (50-75); Platelet Count 270 X10^3/uL (150-400); Red Blood Cell Count 4.03 X10^6/uL (4.0-5.2); Red Cell Distribution Width 15.8 % (11.6-14.8); White Blood Cell Count 8.5 X10^3/uL (4.5-11.0)
[2021-04-10 10:58] LABS: BUN Creatinine Ratio 39.7 (6-22); Blood Urea Nitrogen 23 mg/dL (7-17); Calcium 8.6 mg/dL (8.4-10.2); Carbon Dioxide 27 mmol/L (22-32); Chloride 106 mmol/L (98-107); Estimated Glomerular Filt Rate > 60.0 mL/min (>60); Glucose 155 mg/dL (80-110); HEMOLYSIS < 15 (0-50); Magnesium 1.9 mg/dL (1.6-2.3); Potassium 3.8 mmol/L (3.4-5.1); Sodium 140 mmol/L (137-145)
--- NOTE | 2021-04-10 14:51 | CM.IDA ---
Initial DCP Assessment Note Pt is a 80 yo female, resident at [facility] in [place], PMH includes COPD , patient arrives from her facility w/suspected aspiration; vomiting and difficulty breathing. Norovirus confirmed via stool sample. Patient is currently on O2 PCP: Mayela aWde Payer: [employer] Placed call to Macarena at [facility], facility P# [phone] Macarena's work cell P# [phone], according to our conversation: Patient is not ambulatory at baseline. Patient is mostly w/c bound, can stand but cannot walk. Patient is chronically SOB d/t her COPD Macarena explains that spouse Juliocesar Emerson is patient's DPOA; however, d/t spouse's fragile medical state, spouse often refers to his dtr Chayito Jung for planning purposes and communication. Macarena expects patient to return home upon DC, no bedside assessment required if DC w/in next 24-48 hrs; explains that they do not have a nurse on 14/09 to manage the settings of home oxygen. staff can assist patient w/Neb treatments if prescribed upon DC Updated RN Yessica w/above information; suggested she speak w/RT and Dr Padilla re: nebs vs home O2 Plan: DC expected to be return to [facility]; need to confirm w/patient's family MILLICENT Yepez Discharge Planning/Care Management CM Discharge Assessment Start: 04/10/21 14:48 Freq: Status: Active Protocol: Document 04/10/21 14:48 WALKER (Rec: 04/10/21 14:51 WALKER [id number]) Discharge Planning Assessment Assigned Junior Systems Administrator MILLICENT Richards DPOA/Assigned Designee Name Jade Jung dtr Contact Information [phone] Advance Directives? Yes: POLST Advance Directives on File Yes History Provided By Medical Record Prior Living Arrangements Assisted Living Comment Memory Care Household Members none Type of transportation used prior to Relies on Others admit Facility Name Admitted From: [facility] Willing to Return to Facility? Yes Independent with ADL's No Is patient alert and oriented? No Needs Assistance With Bathing,Grooming,Meal Prep, Toileting,Managing Medications ,Home Chores / Shopping Barriers to Discharge Yes Comment [facility] cannot manage the home oxygen. They will accept home neb treatments Discharge Plan Assisted Living Facility Transportation Arrangement Facility vs family pov Referrals Initiated None needed Additional Comment No referrals needed at this time
[2021-04-11] VITALS (7 sets, daily range): BP systolic 104–139; BP diastolic 42–81; PULSE 61–94; RESP 16–22; TEMP 36.1–36.8; O2SAT 94–97
--- NOTE | 2021-04-11 04:34 | PC.NURSE ---
Shift note: Patient was alert and oriented to self, with episodes of confusion due to history of dementia. Afebrile, vital signs within acceptable limits, O2 sat >92% at room air, not in distress. Around 0400, patient became very confused and removed her IV access and strongly refused to get IV reinserted, CASUALTY INSURANCE CLAIM ADJUSTER Cindy Barnard notified. Re-orientation provided and safety precautions emphasized and maintained. Will continue to monitor.
[2021-04-11 07:21] LABS: Add Manual Diff / Slide Review NO; Basophils Absolute Auto 0 /uL (0-100); Basophils Percent Auto 0.5 % (0-2); Eosinophils Absolute Auto 100 /uL (0-450); Eosinophils Percent Auto 0.8 % (2-4); Hematocrit 32.1 % (36-46); Hemoglobin 10.8 g/dL (12.0-16.0); Lymphocytes Absolute Auto 1300 /uL (1100-4500); Lymphocytes Percent Auto 15.4 % (25-40); Mean Corpuscular HGB Conc 33.7 % (30-36); Mean Corpuscular Hemoglobin 30.2 PG (26-34); Mean Corpuscular Volume 89.6 fL (80-100); Monocytes Absolute Auto 800 /uL (0-900); Monocytes Percent Auto 9.5 % (3-14); Neutrophils Absolute Auto 6100 /uL (1500-7000); Neutrophils Percent Auto 73.8 % (50-75); Platelet Count 253 X10^3/uL (150-400); Red Blood Cell Count 3.59 X10^6/uL (4.0-5.2); Red Cell Distribution Width 15.7 % (11.6-14.8); White Blood Cell Count 8.3 X10^3/uL (4.5-11.0)
[2021-04-11] MEDS: ALBUTEROL/IPRATROPIUM 3 ML AMPUL INH ×2 (07:29→14:47)
[2021-04-11 07:32] LABS: BUN Creatinine Ratio 31.3 (6-22); Blood Urea Nitrogen 15 mg/dL (7-17); Calcium 8.4 mg/dL (8.4-10.2); Carbon Dioxide 28 mmol/L (22-32); Chloride 109 mmol/L (98-107); Estimated Glomerular Filt Rate > 60.0 mL/min (>60); Glucose 89 mg/dL (80-110); HEMOLYSIS < 15 (0-50); Magnesium 1.9 mg/dL (1.6-2.3); Potassium 3.7 mmol/L (3.4-5.1); Sodium 141 mmol/L (137-145)
[2021-04-11] MEDS: ENOXAPARIN 30 MG/0.3 ML SYRINGE SUBCUT (08:38)
[2021-04-11] MEDS: AZITHROMYCIN 250 MG TABLET 500 MG PO (08:38)
--- NOTE | 2021-04-11 10:57 | DI.RAD.S_ITS ---
PROCEDURE: XR HIP W PEL IF DONE RT 2V INDICATIONS: fall TECHNIQUE: AP pelvis with lateral view(s) of the right hip(s). COMPARISON: [facility], CT, CT ABDOMEN PELVIS WO CON, 11/03/2018, 12:37. FINDINGS: Bones: No acute, displaced fracture. Mild joint space loss and osteophytosis. No widening of the pubic symphysis. Pelvic ring appears intact. No suspicious bony lesions. Soft tissues: The visualized bowel gas pattern is normal. Vascular calcifications are seen. IMPRESSION: No acute osseous abnormality. Dictated by: Guy Dickerson M.D. on 04/11/2021 at 11:59 Approved by: Guy Dickerson M.D. on 04/11/2021 at 12:03
--- NOTE | 2021-04-11 12:55 | DIET.CONS ---
Dietary Consultation Note Admission Date: 04/10/2021 05:13 Assessment: 80y F with Parkinsons dementia and COPD admitted for possible aspiration event, now on oxygen and found to have norovirus referred to nutrition for low Alvin score. Pt on isolation r/t norovirus. Upon chart review, pt had significant weight loss associated with move into memory care from assisted living where she had lived c her spouse. Pt has memory impairment, does not know month or year. Pt with likely reduced hunger and thirst cues as well as hypermetabolism from advanced Parkinsons leading to malnourished state. Ht: 152.4 cm Wt: 41.2 kg (-24.3% in 9mo, severe) BMI: 17.7 UBW: 54kg Last BM: 04/10/21 (04/10/21 06:00) MNA: Alvin Score: 14 Diet: 04/10/21 Breakfast General (Regular) Diet Diet Modifications: Nutrition Percent Meal Consumed 10% 04/11/21 12:38 Percent Meal Consumed 40% 04/11/21 08:47 Percent Meal Consumed 25% 04/10/21 17:58 Percent Meal Consumed 100% 04/10/21 15:35 Percent Meal Consumed 0% 04/10/21 09:18 Labs: RBC 3.59 X10^6/uL (4.0-5.2) L 04/11/21 07:10 Hgb 10.8 g/dL (12.0-16.0) L 04/11/21 07:10 Hct 32.1 % (36-46) L 04/11/21 07:10 Creatinine 0.48 mg/dL (0.52-1.04) L 04/11/21 07:10 Lactate 1.2 mmol/L (0.7-2.1) 04/10/21 03:54 NT-Pro-B Natriuret Pep 987 pg/mL (<450) H 04/10/21 01:20 Nutrition Diagnosis: Acute on Chronic Protein Calorie Malnutrition r/t progression of parkinsons dementia, change in living arrangement aeb 24.3% unintentional weight loss in 9mo since moving into memory care unit last June, Alvin score 14, pt with norovirus (vomiting/diarrhea) and likely aspiration event, BMI 17.7 (severe for age), pts POs 0-40% this hospitalization. Interventions: 1. Recc ONS Ensure Enlive bid moving forward to support hydration and macro/micronutrient needs. Monitoring/Evaluations: ONS tolerance Electronically Signed by: Annette Aguiar 04/11/21 12:55 Clinical [address] [address]
--- NOTE | 2021-04-11 13:23 | PM.PN.1 ---
Subjective Subjective Interval history: The patient reports feeling well today. She denies any episodes of diarrhea this morning, although RN said she did have 1 episode. No event overnight reported. Exam Vital Signs (past 8 hours): - 04/11/21 06:09 04/11/21 07:29 04/11/21 10:00 Temperature 97 F L Pulse Rate 76 81 82 Respiratory Rate 16 20 Blood Pressure 139/78 116/67 Pulse Oximetry 95 94 97 04/11/21 10:42 Temperature 98.2 F Pulse Rate 78 Respiratory Rate 20 Blood Pressure 133/81 Pulse Oximetry 96 Fraction of Inspired Oxygen 40 Oxygen Delivery Method Room Air Oxygen Flow Rate 0 Const Other: Patient laying in bed comfortably upon my entering the room, in no apparent, acute distress Eyes Other: No scleral icterus appreciated Neck Other: No carotid bruits appreciated Resp Other: Lungs clear to auscultation bilaterally Cardio Other: RRR, with normal S1 and S2 heart sounds GI Other: Soft, non-distended, non-tender, bowel sounds present Skin Other: No grossly abnormal skin lesions noted Psych Other: Pleasant affect, not oriented to person, place, or time Objective Labs Result Diagrams: 04/11/21 07:10 04/11/21 07:10 Labs: Laboratory Results - last 24 hr 04/11/21 04/11/21 07:10 07:10 WBC 8.3 RBC 3.59 L Hgb 10.8 L Hct 32.1 L MCV 89.6 MCH 30.2 MCHC 33.7 RDW 15.7 H Plt Count 253 Neut % (Auto) 73.8 D Lymph % (Auto) 15.4 L [place] % (Auto) 9.5 Eos % (Auto) 0.8 L Baso % (Auto) 0.5 Neut # (Auto) 6100 Lymph # (Auto) 1300 [place] # (Auto) 800 Eos # (Auto) 100 Baso # (Auto) 0 Sodium 141 Potassium 3.7 Chloride 109 H Carbon Dioxide 28 BUN 15 Creatinine 0.48 L Estimated GFR > 60.0 BUN/Creatinine Ratio 31.3 H Glucose 89 Calcium 8.4 Magnesium 1.9 PFSH Medical History Atherosclerosis Atrial fibrillation COPD (chronic obstructive pulmonary disease) Depression Hernia Low back pain Mild cognitive impairment Osteoporosis Parkinson disease Surgical History H/O left inguinal hernia repair Hx of tonsillectomy Family History Father Lung cancer Mother Hypertension Lung cancer Daughter Ovarian cancer Other Congestive heart failure Social History household members: none Smoking Status: Former smoker Assessment & Plan Assessment & Plan narrative: Michelle Garcia presented with n/v/d from her facility, [facility], and this was likely from norovirus. She was also in COPD exacerbation at the time, which has since resolved. 1. Acute respiratory failure secondary to COPD exacerbation, acute, present on admission Patient was given BiPAP in the emergency department apparently did well and was able to be deescalated to oxygen with by nasal cannula She is written for RT to provide albuterol q.3 hours and or albuterol/ipratropium q.3 hours as needed for shortness of breath 2. Positive norovirus, present on admission Contact precautions, and Imodium as need for profuse diarrhea 3. Dementia, chronic Continue home doses of citalopram and mirtazapine VTE Prophylaxis: Lovenox 40 mg daily Code status: DNR/DNI per the patient's POLST. I have utilized all available immediate resources to obtain, update, or review of the patient's current medications Time Spent With Patient Critical Care time: I spent a total of [] minutes of critical care time on this patient's care today; this time is exclusive of procedural time. Quality VTE Deep Vein Thrombosis/Pulmonary Embolism Present on Admission: No MIPS - Admit I confirm the patient?s Advance Care Plan is present, Code status is documented, Surrogate decision maker is in patient?s record [If Yes, STOP here]: Yes
--- NOTE | 2021-04-11 14:49 | CM.DPNOTE ---
Addendum entered by Debi Lamb 04/11/21 15:47: Faxed ulises vargas result, dc summary and last pn to Macarena at [facility]. Received fax conf. Debi Lamb CM Assist. Original Note: Per Trudi, spoke to Macarena RN at [facility] to let them know pt. will be arriving this afternoon, transported by car, daughter, Chayito. Macarena needs PN, order, Meds. She said if pt. does not arrive today, it would have to wait until Wednesday. I called and spoke to dima Stratton at [phone], and told her to please come [facility] to take Michelle to [facility]. She understood the situation and said she was leaving at that time from [facility]. She said she will diamond picker patient at ER entrance. Relayed this information to Trudi. Debi Lamb CM Assist.
--- NOTE | 2021-04-11 15:30 | P.DS_ITS ---
History of Present Illness History of Present Illness Chief complaint: COPD exacerbation Narrative: Michelle Garcia a 80-year-old female resident of [facility] with a history of COPD and is a former smoker was brought into the emergency department for possible aspiration and difficulty breathing.? Wednesday morning patient reportedly vomited and staff suspected aspiration.? She had rhonchorous cough t hroughout the day overnight when she started having increasing shortness of breath.? Patient denied any shortness of breath on presentation to the ED, but was having labored breathing.? She denies any chest pain, pressure, nausea or vomiting, dysurea, diarrhea or constipation.? The facility reported that patient has had some nausea and vomiting to the Ed provider.? She denies any other symptoms currently.? She does have current diagnosis of dementia, atrial fibrillation, and COPD. Chest x-ray ordered in the emergency department indicated hyperinflation consistent with COPD with no pleural effusions.? She initially had an oxygen saturation in the high 80s upon presentation to the emergency department and was administered BiPAP in the emergency department and her saturations increased to normal? No acute cardio pulmonary disease.? Patient is afebrile, blood pressure 105/53, heart rate 82, respiratory rate 23, oxygen saturation 97% currently on 2% nasal cannula, she weighs 41 kg.? A CBC is unremarkable, platelet count 317, ABG was within normal limits, BUN is 26, glucose 140, lactate was 2.4 in the emergency department and repeat was 1.2, proBNP was 987, procalcitonin was 0.23, stool culture was positive for norovirus, COVID-19 PCR is negative. Written by admitting provider Discharge Providers Provider Date of admission: 04/10/21 05:13 Discharge Date: 04/11/21 Primary care physician: DONNA Mann Consults: 04/10/21 01:17 Consult to Respiratory Therapy Evaluate & Treat Comment: Physician Instructions: Evaluate and treat 04/10/21 17:47 Consult to Dietitian, Adult Routine Comment: Reason For Exam: constanza score <18 Discharge provider: Hailey Padilla MD Summary Hospital Course Discharge Diagnosis: Michelle Garcia presented with n/v/d from her facility, [facility], and this was likely from norovirus. She was also in COPD exacerbation at the time, which has since resolved. 1. Acute respiratory failure secondary to COPD exacerbation, acute, present on admission * Patient was given BiPAP in the emergency department initially, and was able to be deescalated to room air quickly inpatient 2. Positive norovirus, present on admission * Contact precautions, and Imodium as need for profuse diarrhea * Home laxative medications to be on hold for now 3. Dementia, chronic * Continue home doses of citalopram and mirtazapine 4. Overactive bladder * Continue home trospium 20 mg am and 40 mg pm Exam Vital Signs (past 8 hours): - 04/11/21 10:00 04/11/21 10:42 04/11/21 15:00 Temperature 98.2 F Pulse Rate 82 78 92 H Respiratory Rate 20 22 Blood Pressure 116/67 133/81 Pulse Oximetry 97 96 Fraction of Inspired Oxygen 40 Oxygen Delivery Method Room Air Oxygen Flow Rate 0 Objective Labs Result Diagrams: 04/11/21 07:10 04/11/21 07:10 Labs: Laboratory Results - last 24 hr 04/11/21 04/11/21 07:10 07:10 WBC 8.3 RBC 3.59 L Hgb 10.8 L Hct 32.1 L MCV 89.6 MCH 30.2 MCHC 33.7 RDW 15.7 H Plt Count 253 Neut % (Auto) 73.8 D Lymph % (Auto) 15.4 L Humphreys % (Auto) 9.5 Eos % (Auto) 0.8 L Baso % (Auto) 0.5 Neut # (Auto) 6100 Lymph # (Auto) 1300 Humphreys # (Auto) 800 Eos # (Auto) 100 Baso # (Auto) 0 Sodium 141 Potassium 3.7 Chloride 109 H Carbon Dioxide 28 BUN 15 Creatinine 0.48 L Estimated GFR > 60.0 BUN/Creatinine Ratio 31.3 H Glucose 89 Calcium 8.4 Magnesium 1.9 PFSH Medical History Atherosclerosis Atrial fibrillation COPD (chronic obstructive pulmonary disease) Depression Hernia Low back pain Mild cognitive impairment Osteoporosis Parkinson disease Surgical History H/O left inguinal hernia repair Hx of tonsillectomy Family History Father Lung cancer Mother Hypertension Lung cancer Daughter Ovarian cancer Other Congestive heart failure Social History household members: none Smoking Status: Former smoker Discharge Assessment & Plan Assessment and Plan Assessment: Michelle Garcia presented with n/v/d from her facility, [facility], and this was likely from norovirus. She was also in COPD exacerbation at the time, which has since resolved. 1. Acute respiratory failure secondary to COPD exacerbation, acute, present on admission ? Patient was given BiPAP in the emergency department initially, and was able to be deescalated to room air quickly inpatient 2. Positive norovirus, present on admission ? Contact precautions, and Imodium as need for profuse diarrhea ? Home laxative medications to be on hold for now 3. Dementia, chronic ? Continue home doses of citalopram and mirtazapine 4. Overactive bladder ? Continue home trospium 20 mg am and 40 mg pm Discharge Plan Discharge Plan Patient Disposition: Home Discharge orders & Medications Prescriptions: Continued multivitamin Tablet 1 tab PO DAILY 0RF ferrous sulfate 325 mg (65 mg iron) Tablet 325 mg PO DAILY 0RF ranitidine HCl 150 mg Tablet 150 mg PO BEDTIME 0RF albuterol sulfate [Ventolin HFA] 90 mcg/actuation Hfa Aerosol Inhaler 2 puff inhalation PRN PRN (Reason: Shortness Of Breath) 0RF Rx Instructions: rescue inhaler trospium 20 mg Tablet 20 mg PO QAM 0RF trospium 20 mg Tablet 40 mg PO QPM 0RF citalopram 10 mg Tablet 10 mg PO DAILY 0RF acetaminophen 500 mg Tablet 500 mg PO BID 0RF mirtazapine 30 mg Tablet 30 mg PO BEDTIME 0RF fluticasone propion-salmeterol [Wixela Inhub] 500-50 mcg/dose Blister With Device 1 inh INHALATION BID 0RF bisacodyl 5 mg Tablet 10 mg PO DAILY PRN (Reason: Constipation) 0RF [id number] C-Mn [Glucosamine Chondroitin MaxStr] 500-400 mg Capsule 2 cap PO DAILY 0RF omeprazole magnesium [Prilosec OTC] 20 mg tablet,delayed release (DR/EC) 40 mg PO DAILY 0RF Discontinued cephalexin 500 mg capsule 500 mg PO BID Qty: 10 0RF fluticasone propion-salmeterol [Advair Diskus] 500-50 mcg/dose Blister With Device 1 inh INHALATION BID 0RF docusate sodium [Stool Softener] 100 mg Capsule 200 mg PO BEDTIME 0RF acetaminophen 325 mg Tablet 650 mg PO Q4H PRN (Reason: Pain (Scale Score 1-3)) 0RF polyethylene glycol 3350 17 gram Powder In Packet 17 g PO DAILY 0RF Follow up/Referrals: Mayela Wade ARNP [Primary Care Provider] - Discharge Data Primary Care Provider: Mayela Wade Attending Provider: Cindy Barnard VTE Deep Vein Thrombosis/Pulmonary Embolism Present on Admission: No
--- NOTE | 2021-04-11 17:51 | PC.NURSE ---
Pt is A&Ox1. VSS, afebrile on RA. Lung sounds are diminished and clear, no edema observed. She is able to tolerate about 25% of breakfast, she continues to attempt to sit on the edge of the bed. She is reminded not to get out of bed without assistance. caustic cresylate shift superintendent RN stated that patient had become confused and restless during the night, pulling her IV out and attempting multiple times to get out of bed. She is incontinent of urine and stool, and frequently assessed her needs. She frequently asked to call her this a.m. Her room is directly across from the nurse's station and patient had a witness fall sliding from the edge of the bed (seated position) to the floor. She was witnessed sliding to the floor by RN. She denies pain in her right hip,no deformity or obvious injury observed. VSS. notified and xray of R hip ordered. She continued to deny any pain and Xray was negative or abnormality. Her daughter Chayito was also notified of the event. Chayito arrived this evening to transport patient to [facility]. She was transferred to /chair and to her vehicle with x1 max assist. Chayito was given discharge packet to give to nursing staff, and she informed publications writer that she would have assistance with staff getting her from the vehicle. She transported with her belongings at 1630 this evening.
== END 2021-04-11 16:30 | disposition home or self-care (01) ==
LOC: ED 05:06 → AC 05:14
PROVIDERS: Admitting Provider Nurse Practitioner Family; Emergency Provider Emergency Medicine; PCP Nurse Practitioner Family; Referring Provider Emergency Medicine; Visit Provider Nurse Practitioner Family
DX: J96.00 Acute respiratory failure, unspecified whether with hypoxia or hypercapnia (principal); J44.1 Chronic obstructive pulmonary disease with (acute) exacerbation; A08.11 Acute gastroenteropathy due to Norwalk agent; Z87.891 Personal history of nicotine dependence; I48.91 Unspecified atrial fibrillation; F03.90 Unspecified dementia, unspecified severity, without behavioral disturbance, psychotic disturbance, mood disturbance, and anxiety; N32.81 Overactive bladder
CPT/HCPCS: 36415; 36600; 71045; 73502; 80048; 80053; 82550; 82805; 83605; 83735; 83880; 84145; 84484; 85025; 85610; 85730; 87040; 87507; 87635; 93005; 93010; 94640; 94660; 94762; 96361; 96365; 96366; 96372; 96375; 99284; 99285; 99291; C9803; G0378; J0295; J1650; J2930

== ENCOUNTER 2021-10-01 19:17 | Inpatient (IN) | payer OTHER, SELFPAY ==
[2021-04-10 01:45] VITALS: PULSE 101; RESP 36; O2SAT 97
[2021-04-10 06:00] VITALS: BMI 17.7
[2021-10-01] VITALS (12 sets, daily range): BP systolic 102–128; BP diastolic 51–83; PULSE 78–90; RESP 28; O2SAT 90–99
--- NOTE | 2021-10-01 19:42 | DI.RAD.S_ITS ---
PROCEDURE: XR CHEST 1V INDICATIONS: Shortness of breath TECHNIQUE: One view of the chest was acquired. COMPARISON: [facility], CR, XR CHEST 1V, 04/10/2021, 1:28. [facility], CR, XR CHEST 1V, 11/07/2018, 13:10. FINDINGS: Surgical changes and devices: None. Lungs and pleura: Subtle patchy opacities are present at the mid lungs bilaterally. No pleural effusions or pneumothorax. Redemonstrated rounded nodular opacity projecting over the right mid lung, probably a granuloma. Mediastinum: Cardiac silhouette is at the upper limit of normal in size. Large hiatal hernia. Probable gaseous distention of the esophagus. Bones and chest wall: No suspicious bony lesions. Overlying soft tissues appear unremarkable. IMPRESSION: 1. Subtle bilateral pulmonary opacities could represent multifocal infection in the appropriate clinical setting. 2. Large hiatal hernia. Probable gaseous distension of the esophagus. Dictated by: Ziyad Verma M.D. on 10/01/2021 at 20:45 Approved by: Ziyad Verma M.D. on 10/01/2021 at 20:49
[2021-10-01 19:59] LABS: Add Manual Diff / Slide Review NO; Basophils Absolute Auto 100 /uL (0-100); Basophils Percent Auto 0.7 % (0-2); Eosinophils Absolute Auto 0 /uL (0-450); Eosinophils Percent Auto 0.2 % (2-4); Hematocrit 36.5 % (36-46); Lymphocytes Absolute Auto 900 /uL (1100-4500); Lymphocytes Percent Auto 4.9 % (25-40); Mean Corpuscular HGB Conc 32.9 % (30-36); Mean Corpuscular Hemoglobin 28.9 PG (26-34); Mean Corpuscular Volume 87.9 fL (80-100); Monocytes Absolute Auto 700 /uL (0-900); Monocytes Percent Auto 4.1 % (3-14); Neutrophils Absolute Auto 15600 /uL (1500-7000); Neutrophils Percent Auto 90.1 % (50-75); Platelet Count 300 X10^3/uL (150-400); Red Blood Cell Count 4.16 X10^6/uL (4.0-5.2); Red Cell Distribution Width 15.7 % (11.6-14.8); White Blood Cell Count 17.4 X10^3/uL (4.5-11.0)
--- NOTE | 2021-10-01 20:02 | PC.NURSE ---
pt catherized for urine specimen with 75 ml clear osman colored urine returned, and pt cleaned of stool and vomit
[2021-10-01 20:04] LABS: Lactate (Lactic Acid) 1.3 mmol/L (0.7-2.1)
[2021-10-01 20:05] LABS: Alanine Aminotransferase 15 IU/L (<35); Albumin 4.5 g/dL (3.5-5.0); Albumin Globulin Ratio 1.4 (1.0-2.8); Alkaline Phosphatase 61 U/L (38-126); Aspartate Aminotransferase 29 IU/L (14-36); BUN Creatinine Ratio 40.7 (6-22); Bilirubin Total 0.3 mg/dL (0.2-1.3); Blood Urea Nitrogen 24 mg/dL (7-17); Calcium 9.1 mg/dL (8.4-10.2); Carbon Dioxide 28 mmol/L (22-32); Chloride 106 mmol/L (98-107); Estimated Glomerular Filt Rate > 60 mL/min (>60); Globulin 3.3 g/dL (1.7-4.1); Glucose 116 mg/dL (80-110); HEMOLYSIS 40 (0-50); Potassium 4.9 mmol/L (3.4-5.1); Sodium 140 mmol/L (137-145); Total Protein 7.8 g/dL (6.3-8.2)
[2021-10-01 20:11] LABS: Appearance Urine UA CLEAR; Bilirubin Urine UA NEGATIVE (NEGATIVE); Color Urine UA YELLOW; Glucose Urine UA TRACE g/dL (Negative); Ketones Urine UA NEGATIVE (NEGATIVE); Leukocyte Esterase Urine UA NEGATIVE (NEGATIVE); Nitrite Urine UA NEGATIVE (Negative); Occult Blood Urine UA NEGATIVE (Negative); Protein Urine UA TRACE (Negative); Specific Gravity Urine UA 1.025 (1.000-1.035); Urobilinogen Urine UA 0.2 E.U./dL (0.2)
[2021-10-01 20:13] LABS: NT-proBNP (BNP-Adult 18+) 493 pg/mL (<450)
[2021-10-01 20:17] LABS: Troponin I < 0.012 ng/mL (0.01-0.034)
[2021-10-01 20:41] LABS: Bacteria Urine None Seen; Culture Indicated Urine Cult Not Indicated; RBC Urine None Seen (0-5/HPF); WBC Urine None Seen (0-5/HPF)
[2021-10-01 21:05] LABS: Adenovirus Not Detected (Not Detect); B. parapertussis Not Detected (Not Detecte); Bordetella pertussis Not Detected (Not Detecte); Chlamydophila pneumoniae Not Detected (Not Detect); Coronavirus 229E Not Detected (Not Detect); Coronavirus HKU1 Not Detected (Not Detect); Coronavirus NL 63 Not Detected (Not Detect); Coronavirus OC43 Not Detected (Not Detect); Human Metapneumovirus Not Detected (Not Detect); Human Rhinovirus/Enterovirus Not Detected (Not Detect); Influenza A Not Detected (Not Detect); Influenza B Not Detected (Not Detect); Mycoplasma pneumoniae Not Detected (Not Detect); Parainfluenza Virus 1 Not Detected (Not Detect); Parainfluenza Virus 2 Not Detected (Not Detect); Parainfluenza Virus 3 Not Detected (Not Detect); Parainfluenza Virus 4 Not Detected (Not Detect); Respiratory Syncytial Virus Not Detected (Not Detect); SARS- CoV-2 Not Detected (Not Detecte)
--- NOTE | 2021-10-01 21:55 | ED_ITS ---
HPI - General Adult General Chief complaint: Shortness of Breath/Dyspnea Stated complaint: Low 02 Time Seen by Provider: 10/01/21 19:29 Source: patient and EMS Mode of arrival: EMS History of Present Illness HPI narrative: 80-year-old woman with history of significant dementia who currently is at [facility] brought to the emergency department with concerns of a oxygen saturations in the upper 80s and increased work of breathing. She is DNR with limited intervention. She does have a history of COPD. Does use inhalers and has been given them, there was a report of emesis just prior to medic arrival. She has no other complaints or additional details to offer this time Related Data Home Medications Medication Instructions Recorded Confirmed albuterol sulfate 90 mcg/actuation 2 puff inhalation Q4HR 11/07/18 10/01/21 aerosol inhaler (Ventolin HFA) multivitamin 1 tab PO DAILY 11/07/18 10/01/21 acetaminophen 500 mg tablet 500 mg PO BID 04/10/21 10/01/21 bisacodyl 5 mg tablet 10 mg PO DAILY PRN Constipation 04/10/21 10/01/21 citalopram 10 mg tablet 20 mg PO DAILY 04/10/21 10/01/21 fluticasone 500 mcg-salmeterol 50 1 inh inhalation BID 04/10/21 10/01/21 mcg/dose blistr powdr for inhalation (Wixela Inhub) [id number] C-Mn 500 2 cap PO DAILY 04/10/21 10/01/21 mg-400 mg capsule (Glucosamine Chondroitin Maximum Strength) mirtazapine 30 mg tablet 30 mg PO BEDTIME 04/10/21 10/01/21 omeprazole magnesium 20 mg 40 mg PO DAILY 04/10/21 10/01/21 tablet,delayed release (Prilosec OTC) Allergies Allergy/AdvReac Type Severity Reaction Status Date / Time oxybutynin Allergy Unknown Verified 08/05/20 09:22 Review of Systems Review of Systems ROS Unobtainable: Unobtainable due to medical condition Patient History Medical History (Updated 10/02/21 @ 01:46 by DONNA Morales) Atherosclerosis Atrial fibrillation COPD (chronic obstructive pulmonary disease) Dementia Depression Hernia Hydrocephalus Low back pain Mild cognitive impairment Osteoporosis Parkinson disease Surgical History H/O left inguinal hernia repair Hx of tonsillectomy Family History Father Lung cancer Alcoholism Mother Hypertension Lung cancer Alcoholism Aspiration pneumonia Daughter Ovarian cancer Other Congestive heart failure Social History household members: none Smoking Status: Former smoker alcohol intake: former Smoking Status: Former smoker alcohol intake frequency: 0-2 drinks per day Alcohol type: wine Substance Use Type: does not use Exam Initial Vital Signs Initial Vital Signs: Vital Signs Pulse Rate 90 10/01/21 19:25 Respiratory Rate 28 H 10/01/21 19:25 Blood Pressure 128/58 L 10/01/21 19:25 Pulse Oximetry 90 L 10/01/21 19:25 Oxygen Delivery Method 10/01/21 19:25 General: Frail but in no acute distress. Alert and able to participate in history and physical HEENT: Moist mucous membranes, normal sclera with reactive pupils, Neck: No JVD, supple Respiratory: Lungs are clear to auscultation, no wheezing no rales no rhonchi. Full and symmetrical air movement Cardiac: Regular rate and rhythm no murmurs no bruits Abdomen: Soft, mild tenderness in the right upper quadrant, no rebound or guarding, good bowel tones, no flank pain Skin: Warm and dry, no rashes Neurologic: Memory/cognitive deficits but otherwise Grossly neurologically intact with no obvious asymmetries or abnormalities Extremities: No trauma, well perfused, no skin breakdown or ill evidence of cellulitis Psych: Cooperative, without hallucinations or behavioral abnormalities Course Orders Ordered: Acetaminophen (Acetaminophen 325 Mg Tablet) 650 mg PO Q6HR PRN PRN Reason: Fever/Mild Pain (1-3) Albuterol (Albuterol 2.5 Mg/3 Ml Neb (Adult)) 2.5 mg INH [id number] PRN PRN Reason: Shortness Of Breath Budesonide (Budesonide 0.5 Mg/2 Ml Neb) 0.5 mg INH RTBID NANCY Citalopram Hydrobromide (Citalopram 10 Mg Tablet) 20 mg PO DAILY NANCY Enoxaparin Sodium (Enoxaparin 40 Mg/0.4 Ml Syringe) 40 mg SUBCUT DAILY NANCY Ceftriaxone Sodium 1,000 mg/ (Sodium Chloride) 100 mls @ 200 mls/hr IV Q24H NANCY Stop: 10/07/21 21:59 Azithromycin 500 mg/ Dextrose 250 mls @ 250 mls/hr IV Q24H NANCY Stop: 10/05/21 21:59 Sodium Chloride (Normal Saline 0.9%) 250 mls @ 21 mls/hr IV Q24H PRN PRN Reason: Flush Mirtazapine (Mirtazapine 15 Mg Tablet) 30 mg PO BEDTIME NANCY Ondansetron HCl (Ondansetron 4 Mg/2 Ml Inj) 4 mg IV Q8HR PRN PRN Reason: Nausea And Vomiting Pantoprazole Sodium (Pantoprazole Dr 40 Mg Tablet) 40 mg PO DAILY NANCY Sodium Chloride (Sodium Chloride 0.9% Flush) 10 ml IV PRN PRN PRN Reason: Flush Sodium Chloride (Sodium Chloride 0.9% Flush) 10 ml IV BID NANCY Tramadol HCl (Tramadol 50 Mg Tablet) 50 mg PO Q6H PRN PRN Reason: Pain, Moderate (4-6) Discontinued Medications Ceftriaxone Sodium 2,000 mg/ (Sodium Chloride) 100 mls @ 200 mls/hr IV NOW ONE Stop: 10/01/21 22:10 Last Infusion: 10/01/21 23:29 Dose: 0 mls/hr Documented By: Admin: 10/01/21 22:22 Dose: 200 mls/hr Documented By: REED Azithromycin 500 mg/ Dextrose 250 mls @ 250 mls/hr IV NOW ONE Stop: 10/01/21 22:10 Last Infusion: 10/02/21 00:46 Dose: 0 mls/hr Documented By: Admin: 10/01/21 23:24 Dose: 250 mls/hr Documented By: REED Vital Signs Vital signs: Vital Signs - 8 hr 10/01/21 23:30 10/01/21 23:30 10/02/21 00:00 Pulse Rate 83 Blood Pressure 113/51 L 104/55 L Pulse Oximetry 95 10/02/21 00:00 10/02/21 00:30 10/02/21 00:30 Pulse Rate 81 79 Blood Pressure 110/56 L Pulse Oximetry 97 97 Medical Decision Making Lab Data Result diagrams: 10/02/21 05:45 10/02/21 05:45 Labs: Lab Results 10/01/21 10/01/2110/01/22 Range/Units 19:20 19:20 19:20 WBC 17.4 H (4.5-11.0) X10^3/uL RBC 4.16 (4.0-5.2) X10^6/uL Hgb 12.0 (12.0-16.0) g/dL Hct 36.5 (36-46) % MCV 87.9 (80-100) fL MCH 28.9 (26-34) PG MCHC 32.9 (30-36) % RDW 15.7 H (11.6-14.8) % Plt Count 300 (150-400) X10^3/uL Neut % (Auto) 90.1 H (50-75) % Lymph % (Auto) 4.9 L (25-40) % [place] % (Auto) 4.1 (3-14) % Eos % (Auto) 0.2 L (2-4) % Baso % (Auto) 0.7 (0-2) % Neut # (Auto) 33061 H (9235-9484) /uL Lymph # (Auto) 900 L (4161-1084) /uL [place] # (Auto) 700 (0-900) /uL Eos # (Auto) 0 (0-450) /uL Baso # (Auto) 100 (0-100) /uL Sodium 140 (137-145) mmol/L Potassium 4.9 (3.4-5.1) mmol/L Chloride 106 (98-107) mmol/L Carbon Dioxide 28 (22-32) mmol/L BUN 24 H (7-17) mg/dL Creatinine 0.59 (0.52-1.04) mg/dL Estimated GFR > 60 (>60) mL/min BUN/Creatinine Ratio 40.7 H (6-22) Glucose 116 H (80-110) mg/dL Lactate 1.3 (0.7-2.1) mmol/L Calcium 9.1 (8.4-10.2) mg/dL Total Bilirubin 0.3 (0.2-1.3) mg/dL AST 29 (14-36) IU/L ALT 15 (<35) IU/L Alkaline Phosphatase 61 (38-126) U/L Troponin I (0.01-0.034) ng/mL NT-Pro-B Natriuret Pep (<450) pg/mL Total Protein 7.8 (6.3-8.2) g/dL Albumin 4.5 (3.5-5.0) g/dL Globulin 3.3 (1.7-4.1) g/dL Albumin/Globulin Ratio 1.4 (1.0-2.8) Urine Color Urine Appearance Urine pH (4.5-8.0) Ur Specific [place] (1.000-1.035) Urine Protein (Negative) Urine Glucose (UA) (Negative) g/dL Urine Ketones (NEGATIVE) Urine Occult Blood (Negative) Urine Nitrate (Negative) Urine Bilirubin (NEGATIVE) Urine Urobilinogen (0.2) E.U./dL Ur Leukocyte Esterase (NEGATIVE) Urine RBC (0-5/HPF) Urine WBC (0-5/HPF) Urine Bacteria (None) Ur Culture Indicated? Chlamy pneumoniae PCR (Not Detect) Adenovirus (PCR) (Not Detect) B. pertussis DNA (PCR) (Not Detecte) B.parapertussis DNA PCR (Not Detecte) Coronavirus OC43 (PCR) (Not Detect) Coronavirus HKU1 (PCR) (Not Detect) Coronavirus 229E (PCR) (Not Detect) SARS-CoV-2 (PCR) Coronavirus NL63 (PCR) (Not Detect) Human Metapneumovir PCR (Not Detect) Influenza Type A (PCR) (Not Detect) Influenza Type B (PCR) (Not Detect) M. pneumoniae (PCR) (Not Detect) Parainfluenza 1 (PCR) (Not Detect) Parainfluenza 2 (PCR) (Not Detect) Parainfluenza 3 (PCR) (Not Detect) Parainfluenza 4 (PCR) (Not Detect) RSV (PCR) (Not Detect) Entero/Rhino (PCR) (Not Detect) 10/01/21 10/01/21 10/01/21 Range/Units 19:20 19:20 19:20 WBC (4.5-11.0) X10^3/uL RBC (4.0-5.2) X10^6/uL Hgb (12.0-16.0) g/dL Hct (36-46) % MCV (80-100) fL MCH (26-34) PG MCHC (30-36) % RDW (11.6-14.8) % Plt Count (150-400) X10^3/uL Neut % (Auto) (50-75) % Lymph % (Auto) (25-40) % [place] % (Auto) (3-14) % Eos % (Auto) (2-4) % Baso % (Auto) (0-2) % Neut # (Auto) (3670-7833) /uL Lymph # (Auto) (3248-4844) /uL [place] # (Auto) (0-900) /uL Eos # (Auto) (0-450) /uL Baso # (Auto) (0-100) /uL Sodium (137-145) mmol/L Potassium (3.4-5.1) mmol/L Chloride (98-107) mmol/L Carbon Dioxide (22-32) mmol/L BUN (7-17) mg/dL Creatinine (0.52-1.04) mg/dL Estimated GFR (>60) mL/min BUN/Creatinine Ratio (6-22) Glucose (80-110) mg/dL Lactate (0.7-2.1) mmol/L Calcium (8.4-10.2) mg/dL Total Bilirubin (0.2-1.3) mg/dL AST (14-36) IU/L ALT (<35) IU/L Alkaline Phosphatase (38-126) U/L Troponin I < 0.012 (0.01-0.034) ng/mL NT-Pro-B Natriuret Pep 493 H (<450) pg/mL Total Protein (6.3-8.2) g/dL Albumin (3.5-5.0) g/dL Globulin (1.7-4.1) g/dL Albumin/Globulin Ratio (1.0-2.8) Urine Color Urine Appearance Urine pH (4.5-8.0) Ur Specific [place] (1.000-1.035) Urine Protein (Negative) Urine Glucose (UA) (Negative) g/dL Urine Ketones (NEGATIVE) Urine Occult Blood (Negative) Urine Nitrate (Negative) Urine Bilirubin (NEGATIVE) Urine Urobilinogen (0.2) E.U./dL Ur Leukocyte Esterase (NEGATIVE) Urine RBC (0-5/HPF) Urine WBC (0-5/HPF) Urine Bacteria (None) Ur Culture Indicated? Chlamy pneumoniae PCR (Not Detect) Adenovirus (PCR) (Not Detect) B. pertussis DNA (PCR) (Not Detecte) B.parapertussis DNA PCR (Not Detecte) Coronavirus OC43 (PCR) (Not Detect) Coronavirus HKU1 (PCR) (Not Detect) Coronavirus 229E (PCR) (Not Detect) SARS-CoV-2 (PCR) Cancelled Coronavirus NL63 (PCR) (Not Detect) Human Metapneumovir PCR (Not Detect) Influenza Type A (PCR) (Not Detect) Influenza Type B (PCR) (Not Detect) M. pneumoniae (PCR) (Not Detect) Parainfluenza 1 (PCR) (Not Detect) Parainfluenza 2 (PCR) (Not Detect) Parainfluenza 3 (PCR) (Not Detect) Parainfluenza 4 (PCR) (Not Detect) RSV (PCR) (Not Detect) Entero/Rhino (PCR) (Not Detect) 10/01/21 10/01/21 Range/Units 19:47 20:00 WBC (4.5-11.0) X10^3/uL RBC (4.0-5.2) X10^6/uL Hgb (12.0-16.0) g/dL Hct (36-46) % MCV (80-100) fL MCH (26-34) PG MCHC (30-36) % RDW (11.6-14.8) % Plt Count (150-400) X10^3/uL Neut % (Auto) (50-75) % Lymph % (Auto) (25-40) % [place] % (Auto) (3-14) % Eos % (Auto) (2-4) % Baso % (Auto) (0-2) % Neut # (Auto) (9085-3650) /uL Lymph # (Auto) (2202-9675) /uL [place] # (Auto) (0-900) /uL Eos # (Auto) (0-450) /uL Baso # (Auto) (0-100) /uL Sodium (137-145) mmol/L Potassium (3.4-5.1) mmol/L Chloride (98-107) mmol/L Carbon Dioxide (22-32) mmol/L BUN (7-17) mg/dL Creatinine (0.52-1.04) mg/dL Estimated GFR (>60) mL/min BUN/Creatinine Ratio (6-22) Glucose (80-110) mg/dL Lactate (0.7-2.1) mmol/L Calcium (8.4-10.2) mg/dL Total Bilirubin (0.2-1.3) mg/dL AST (14-36) IU/L ALT (<35) IU/L Alkaline Phosphatase (38-126) U/L Troponin I (0.01-0.034) ng/mL NT-Pro-B Natriuret Pep (<450) pg/mL Total Protein (6.3-8.2) g/dL Albumin (3.5-5.0) g/dL Globulin (1.7-4.1) g/dL Albumin/Globulin Ratio (1.0-2.8) Urine Color Yellow Urine Appearance Clear Urine pH 5.0 (4.5-8.0) Ur Specific [place] 1.025 (1.000-1.035) Urine Protein Trace H (Negative) Urine Glucose (UA) Trace H (Negative) g/dL Urine Ketones Negative (NEGATIVE) Urine Occult Blood Negative (Negative) Urine Nitrate Negative (Negative) Urine Bilirubin Negative (NEGATIVE) Urine Urobilinogen 0.2 (0.2) E.U./dL Ur Leukocyte Esterase Negative (NEGATIVE) Urine RBC None seen (0-5/HPF) Urine WBC None seen (0-5/HPF) Urine Bacteria None seen (None) Ur Culture Indicated? Cult not indicated Chlamy pneumoniae PCR Not detected (Not Detect) Adenovirus (PCR) Not detected (Not Detect) B. pertussis DNA (PCR) Not detected (Not Detecte) B.parapertussis DNA PCR Not detected (Not Detecte) Coronavirus OC43 (PCR) Not detected (Not Detect) Coronavirus HKU1 (PCR) Not detected (Not Detect) Coronavirus 229E (PCR) Not detected (Not Detect) SARS-CoV-2 (PCR) Not detected Coronavirus NL63 (PCR) Not detected (Not Detect) Human Metapneumovir PCR Not detected (Not Detect) Influenza Type A (PCR) Not detected (Not Detect) Influenza Type B (PCR) Not detected (Not Detect) M. pneumoniae (PCR) Not detected (Not Detect) Parainfluenza 1 (PCR) Not detected (Not Detect) Parainfluenza 2 (PCR) Not detected (Not Detect) Parainfluenza 3 (PCR) Not detected (Not Detect) Parainfluenza 4 (PCR) Not detected (Not Detect) RSV (PCR) Not detected (Not Detect) Entero/Rhino (PCR) Not detected (Not Detect) Imaging Data Chest x-ray: Radiologist's Impression: FINDINGS:? ? Surgical changes and devices:? None.? ? Lungs and pleura:? Subtle patchy opacities are present at the mid lungs bilaterally.? No pleural effusions or pneumothorax.? Redemonstrated rounded nodular opacity projecting over the right mid lung, probably a granuloma. ? Mediastinum:? Cardiac silhouette is at the upper limit of normal in size.? Large hiatal hernia.? Probable gaseous distention of the esophagus. ? Bones and chest wall:? No suspicious bony lesions.? Overlying soft tissues appear unremarkable.? ? IMPRESSION:? 1. Subtle bilateral pulmonary opacities could represent multifocal infection in the appropriate clinical setting. 2. Large hiatal hernia.? Probable gaseous distension of the esophagus.? ? ? Dictated by: Ziyad Verma M.D. on 10/01/2021 at 20:45 ? ? ECG Data Interpretation: Sinus rhythm at a rateOf 86 poor baseline Normal intervals, normal axis No acute ischemic changes MDM Narrative Medical decision making narrative: 80-year-old woman with cognitive deficits and history of COPD presents with vomiting, low oxygen saturations and a report from nursing staff at her [facility] that she is a bit off today. Her daughter notes that she was having some chills in the emergency department but the patient denies fever or chills. Her chest x-ray suggests subtle bilateral pulmonary opacities however her clinical pulmonary exam is relatively benign. There are no crackles rhonchi or wheezing. She does not have clinical congestive heart failure with no evidence of JVD, lower extremity edema or pulmonary abnormalities. She has responded nicely to 2 L of nasal cannula oxygen. On her clinical exam she does have some mild abdominal pain so a CT scan of the abdomen will be performed. Urinalysis does not suggest UTI, she does not have significantly elevated liver abnormalities. She does not have an elevated lactic acid. Respiratory panel is unremarkable, no COVID. Will begin ceftriaxone and azithromycin and proceed with CT scan and probable hospital admission given her age, cognitive deficit, and significant leukocytosis. CT scan of the abdomen shows no significant additional abnormalities. Will plan on admitting this woman to the hospitalist service for bilateral atypical pneumonia with leukocytosis and hypoxia, CURB 65= 4 (highest risk). She is quite comfortable on 2 L and not in impending respiratory distress. She would not want to be intubated should she get worse. Antibiotics are acceptable. Care is reviewed with patient and her daughter. Will be discussed with the hospitalist service. Discharge Plan Departure Patient Disposition: Admitted As Inpatient Clinical Impression: Hypoxia Dyspnea Qualifiers: Dyspnea type: acute respiratory distress Qualified Code(s): R06.03 - Acute respiratory distress Community acquired pneumonia Qualifiers: Laterality: unspecified laterality Qualified Code(s): J18.9 - Pneumonia, unspecified organism Admit Date/Time: 10/02/21 00:37 Admit Provider: Cindy Barnard
--- NOTE | 2021-10-01 22:09 | DI.CT.S_ITS ---
PROCEDURE: CT ABDOMEN PELVIS W CON INDICATIONS: Vomiting, abdominal pain, leukocytosis TECHNIQUE: After the administration of IV contrast, axial sections were acquired from the lung bases to the pubic symphysis. Coronal and sagittal reformats were performed. For radiation dose reduction, the following was used: automated exposure control, adjustment of mA and/or kV according to patient size. COMPARISON: [facility], CT, CT ABDOMEN PELVIS WO CON, 11/03/2018, 12:37. FINDINGS: Image quality: Excellent. Lung bases: There are extensive emphysematous changes partially visualized within the lungs. Heart: Heart is normal in size. There is a large hiatal hernia partially visualized low. ABDOMEN: Liver: No mass lesion. Gallbladder: Within normal limits without calcified gallstones. Biliary ducts: No biliary ductal dilatation. Pancreas: Unremarkable. Spleen: There is a small spleen which appears located medial to the colon in the left upper quadrant. Adrenal Glands: No adrenal nodules. Kidneys and Ureters: No hydronephrosis. Stomach and Bowel: Stomach, small bowel loops, and colon are normal in caliber and wall thickness. Peritoneum: No abnormal intraperitoneal fluid. No free air. Ventral Wall: No hernia. Abdominal Nodes: No retroperitoneal or mesenteric adenopathy by size criteria. Vessels: Aorta and inferior vena cava are normal in size. PELVIS: Pelvic Organs: There are calcified fibroids redemonstrated uterus. Bladder: Unremarkable. Pelvic Nodes: No enlarged lymph nodes. Miscellaneous: No inguinal hernias are seen. There are partially calcified Bones: Visualized osseous structures demonstrate no suspicious focal lesions. IMPRESSION: 1. No definite acute intra-abdominal abnormality. Specifically, no evidence of bowel obstruction. 2. Large hiatal hernia partially visualized. Dictated by: Mahin Quiroga M.D. on 10/01/2021 at 23:02 Approved by: Mahin Quiroga M.D. on 10/01/2021 at 23:07
[2021-10-01] MEDS: cefTRIAXone 2,000 MG in SODIUM CHLORIDE 0.9% 100 ML 200 MG IV (22:22)
[2021-10-01] MEDS: AZITHROMYCIN 500 MG in DEXTROSE 5% IN WATER 250 ML 250 MG IV (23:24)
[2021-10-02] VITALS (13 sets, daily range): BP systolic 104–167; BP diastolic 45–61; PULSE 76–86; RESP 14–24; TEMP 36.2–38.1; O2SAT 93–98; BMI 18.8
--- NOTE | 2021-10-02 01:38 | P.HP_ITS ---
History of Present Illness History of Present Illness Date Patient Seen: 10/02/21 Time Patient Seen: 01:38 Chief complaint: Low O2 Sat, found to have bilateral pneumonia Narrative: Michelle Garcia a 80-year-old female resident of [facility] with a history of COPD and is a former smoker was brought into the emergency department due to low oxygen saturation in the 80s. She was administered a treatment and apparently she did not improve, and was ambulanced to [facility]. Patient is severely demented and hard of hearing, daughter?Chayito provides much of the history. Patient did tell me she was feeling bad and short of breath but could not tell me for how long or whether she had a cough. Denies chest pain, nausea or vomiting, abdominal pain, dysurea, diarrhea or constipation. Chest xray reported ?Subtle bilateral pulmonary opacities could represent multifocal infection..., large hiatal hernia. Patient is currently febrile at 100.5, blood pressure 110/56, heart rate 79, respiratory rate 28, oxygen saturation of 97% on room air, she weighs 41 kg with a BMI of 18.8. She does have a elevated white count at 17.4, with a left shift of 15,600 neutrophils glucose is 116, proBNP is 493, troponin is normal, she has trace protein and glucose in her urine, she is negative for UTI, viral and COVID-19 PCRs are all negative Family history of smoking, alcoholism and early deaths of both parents as outlined below. Patient History Medical History (Updated 10/02/21 @ 01:46 by DONNA Morales) Atherosclerosis Atrial fibrillation COPD (chronic obstructive pulmonary disease) Dementia Depression Hernia Hydrocephalus Low back pain Mild cognitive impairment Osteoporosis Parkinson disease Surgical History H/O left inguinal hernia repair Hx of tonsillectomy Family & Social History Family History Father Lung cancer Alcoholism Mother Hypertension Lung cancer Alcoholism Aspiration pneumonia Daughter Ovarian cancer Other Congestive heart failure Social History: household members none Prior Living Arrangements Assisted Living Tobacco & Substance use: Smoking Status Former smoker, 50 year pack history alcohol intake former alcohol intake frequency 0-2 drinks per day Substance Use Type does not use Meds Home Medications and Allergies Home Medications Medication Instructions Recorded Confirmed Type albuterol sulfate 90 mcg/actuation 2 puff inhalation Q4HR 11/07/18 10/01/21 Hist ory aerosol inhaler (Ventolin HFA) multivitamin 1 tab PO DAILY 11/07/18 10/01/21 History acetaminophen 500 mg tablet 500 mg PO BID 04/10/21 10/01/21 History bisacodyl 5 mg tablet 10 mg PO DAILY PRN Constipation 04/10/21 10/01/21 History citalopram 10 mg tablet 20 mg PO DAILY 04/10/21 10/01/21 History fluticasone 500 mcg-salmeterol 50 1 inh inhalation BID 04/10/21 10/01/21 History mcg/dose blistr powdr for inhalation (Wixela Inhub) [id number] C-Mn 500 2 cap PO DAILY 04/10/21 10/01/21 History mg-400 mg capsule (Glucosamine Chondroitin Maximum Strength) mirtazapine 30 mg tablet 30 mg PO BEDTIME 04/10/21 10/01/21 History omeprazole magnesium 20 mg 40 mg PO DAILY 04/10/21 10/01/21 History tablet,delayed release (Prilosec OTC) Allergies Allergy/AdvReac Type Severity Reaction Status Date / Time oxybutynin Allergy Unknown Verified 08/05/20 09:22 Review of Systems Review of Systems ROS: Yes All systems reviewed with the patient and are negative except as otherwise documented Exam Vital Signs (past 8 hours): - 10/01/21 19:25 10/01/21 19:58 10/01/21 20:00 Temperature Pulse Rate 90 85 87 Respiratory Rate 28 H Blood Pressure 128/58 L Pulse Oximetry 90 L 99 99 Oxygen Delivery Method Room Air 10/01/21 20:30 10/01/21 21:00 10/01/21 21:30 Temperature Pulse Rate 85 83 80 Respiratory Rate Blood Pressure Pulse Oximetry 99 97 99 Oxygen Delivery Method 10/01/21 22:00 10/01/21 22:25 10/01/21 22:25 Temperature Pulse Rate 80 83 Respiratory Rate Blood Pressure 118/83 Pulse Oximetry 99 93 Oxygen Delivery Method 10/01/21 22:30 10/01/21 22:42 10/01/21 22:42 Temperature Pulse Rate 78 78 Respiratory Rate Blood Pressure 104/62 Pulse Oximetry 98 98 Oxygen Delivery Method 10/01/21 23:00 10/01/21 23:00 10/01/21 23:30 Temperature Pulse Rate 82 Respiratory Rate Blood Pressure 102/52 L 113/51 L Pulse Oximetry 95 Oxygen Delivery Method 10/01/21 23:30 10/02/21 00:00 10/02/21 00:00 Temperature Pulse Rate 83 81 Respiratory Rate Blood Pressure 104/55 L Pulse Oximetry 95 97 Oxygen Delivery Method 10/02/21 00:30 10/02/21 00:30 10/02/21 00:50 Temperature 100.5 F H Pulse Rate 79 Respiratory Rate Blood Pressure 110/56 L Pulse Oximetry 97 Oxygen Delivery Method Oxygen Delivery Method Room Air Narrative Exam Narrative: Gen: Alert, oriented, cachectic 80 y.o. female, appears older than stated age HEENT: normocephalic, atraumatic, conjunctiva clear, sclera non-icteric, oral mucosa pink and moist Neck: supple, full ROM, no JVD, trachea is midline Resp: Lungs CTA, non-labored breathing CV: RRR, no murmur or rubs Abd: soft, non-tender, normoactive BTs Skin: Prominent facial hair, no lesions or rashes, thin and friable, superficial laceration on the left lower leg secured with Steri-Strips healing well no appearance of infection. Neuro: Very hard of hearing, appears to have memory deficits. Speech clear and coherent. Extremities: moves all 4 extremities, is ambulatory, negative Ananth?s sign Psyche: normal mood and affect. Objective Labs Result Diagrams: 10/01/21 19:20 10/01/21 19:20 Labs: Laboratory Results - last 24 hr 10/01/21 10/01/21 10/01/21 19:20 19:20 19:20 WBC 17.4 H RBC 4.16 Hgb 12.0 Hct 36.5 MCV 87.9 MCH 28.9 MCHC 32.9 RDW 15.7 H Plt Count 300 Neut % (Auto) 90.1 H Lymph % (Auto) 4.[address] [place] % (Auto) 4.1 Eos % (Auto) 0.2 L Baso % (Auto) 0.7 Neut # (Auto) 78865 H Lymph # (Auto) [address] [facility] [place] # (Auto) 700 Eos # (Auto) 0 Baso # (Auto) 100 Sodium 140 Potassium 4.9 Chloride 106 Carbon Dioxide 28 BUN 24 H Creatinine 0.59 Estimated GFR > 60 BUN/Creatinine Ratio 40.7 H Glucose 116 H Lactate 1.3 Calcium 9.1 Total Bilirubin 0.3 AST 29 ALT 15 Alkaline Phosphatase 61 Troponin I NT-Pro-B Natriuret Pep Total Protein 7.8 Albumin 4.5 Globulin 3.3 Albumin/Globulin Ratio 1.4 Urine Color Urine Appearance Urine pH Ur Specific [place] Urine Protein Urine Glucose (UA) Urine Ketones Urine Occult Blood Urine Nitrate Urine Bilirubin Urine Urobilinogen Ur Leukocyte Esterase Urine RBC Urine WBC Urine Bacteria Ur Culture Indicated? Chlamy pneumoniae PCR Adenovirus (PCR) B. pertussis DNA (PCR) B.parapertussis DNA PCR Coronavirus OC43 (PCR) Coronavirus HKU1 (PCR) Coronavirus 229E (PCR) SARS-CoV-2 (PCR) Coronavirus NL63 (PCR) Human Metapneumovir PCR Influenza Type A (PCR) Influenza Type B (PCR) M. pneumoniae (PCR) Parainfluenza 1 (PCR) Parainfluenza 2 (PCR) Parainfluenza 3 (PCR) Parainfluenza 4 (PCR) RSV (PCR) Entero/Rhino (PCR) 10/01/21 10/01/21 10/01/21 19:20 19:20 19:20 WBC RBC Hgb Hct MCV MCH MCHC RDW Plt Count Neut % (Auto) Lymph % (Auto) [place] % (Auto) Eos % (Auto) Baso % (Auto) Neut # (Auto) Lymph # (Auto) [place] # (Auto) Eos # (Auto) Baso # (Auto) Sodium Potassium Chloride Carbon Dioxide BUN Creatinine Estimated GFR BUN/Creatinine Ratio Glucose Lactate Calcium Total Bilirubin AST ALT Alkaline Phosphatase Troponin I < 0.012 NT-Pro-B Natriuret Pep 493 H Total Protein Albumin Globulin Albumin/Globulin Ratio Urine Color Urine Appearance Urine pH Ur Specific [place] Urine Protein Urine Glucose (UA) Urine Ketones Urine Occult Blood Urine Nitrate Urine Bilirubin Urine Urobilinogen Ur Leukocyte Esterase Urine RBC Urine WBC Urine Bacteria Ur Culture Indicated? Chlamy pneumoniae PCR Adenovirus (PCR) B. pertussis DNA (PCR) B.parapertussis DNA PCR Coronavirus OC43 (PCR) Coronavirus HKU1 (PCR) Coronavirus 229E (PCR) SARS-CoV-2 (PCR) Cancelled Coronavirus NL63 (PCR) Human Metapneumovir PCR Influenza Type A (PCR) Influenza Type B (PCR) M. pneumoniae (PCR) Parainfluenza 1 (PCR) Parainfluenza 2 (PCR) Parainfluenza 3 (PCR) Parainfluenza 4 (PCR) RSV (PCR) Entero/Rhino (PCR) 10/01/21 10/01/21 19:47 20:00 WBC RBC Hgb Hct MCV MCH MCHC RDW Plt Count Neut % (Auto) Lymph % (Auto) [facility] % (Auto) Eos % (Auto) Baso % (Auto) Neut # (Auto) Lymph # (Auto) [facility] # (Auto) Eos # (Auto) Baso # (Auto) Sodium Potassium Chloride Carbon Dioxide BUN Creatinine Estimated GFR BUN/Creatinine Ratio Glucose Lactate Calcium Total Bilirubin AST ALT Alkaline Phosphatase Troponin I NT-Pro-B Natriuret Pep Total Protein Albumin Globulin Albumin/Globulin Ratio Urine Color Yellow Urine Appearance Clear Urine pH 5.0 Ur Specific [place] 1.025 Urine Protein Trace H Urine Glucose (UA) Trace H Urine Ketones Negative Urine Occult Blood Negative Urine Nitrate Negative Urine Bilirubin Negative Urine Urobilinogen 0.2 Ur Leukocyte Esterase Negative Urine RBC None seen Urine WBC None seen Urine Bacteria None seen Ur Culture Indicated? Cult not indicated Chlamy pneumoniae PCR Not detected Adenovirus (PCR) Not detected B. pertussis DNA (PCR) Not detected B.parapertussis DNA PCR Not detected Coronavirus OC43 (PCR) Not detected Coronavirus HKU1 (PCR) Not detected Coronavirus 229E (PCR) Not detected SARS-CoV-2 (PCR) Not detected Coronavirus NL63 (PCR) Not detected Human Metapneumovir PCR Not detected Influenza Type A (PCR) Not detected Influenza Type B (PCR) Not detected M. pneumoniae (PCR) Not detected Parainfluenza 1 (PCR) Not detected Parainfluenza 2 (PCR) Not detected Parainfluenza 3 (PCR) Not detected Parainfluenza 4 (PCR) Not detected RSV (PCR) Not detected Entero/Rhino (PCR) Not detected Assessment & Plan Assessment & Plan narrative: Michelle Emerson is admitted to the inpatient service for further treatment and management of a community-acquired pneumonia. Community-acquired pneumonia, acute, present on admission * Diagnosis confirmed with elevated white count and x-ray findings * She started on IV ceftriaxone and IV azithromycin COPD exacerbation likely, present on admission * Patient was hypoxic in the 80s per EMS report to ED provider * She is written for albuterol nebulizers as needed and Pulmicort b.i.d. Dementia, chronic * Continue home dose of mirtazapine 30 mg p.o. at bedtime and citalopram 20 mg p.o. daily GERD, chronic * Continue home dose of omeprazole will likely be substituted with Protonix 40 mg p.o. daily VTE Prophylaxis: Wells risk score 0 X Enoxaparin 40 mg subQ once daily C Bilateral SCDs Patient is admitted to the inpatient service due to the severity of disease, risks of further disease progression and this stay is expected to exceed 2 midnights. FEN: IV fluids: Saline lock, diet: General, labs: CBC, C/BMP, liver enzymes, Mag, PT/INR Consultants None Dispo: Discharge back to [facility] within 3-5 days Code status: DNR/DNI per patient's POLST mariscal states patient's [place], is her DPOA/proxy. [X] I have utilized all available immediate resources to obtain, update, or review of the patient's current medications COVID-19 COVID-19 status: Negative Result date/Date tested (Pos, Neg/Pending): 10/02/21 Scores Wells' Criteria for PE Clinical signs and symptoms of DVT: Yes PE is #1 Dx or equally likely: No Heart rate > 100: No Immobilization at least 3 days or surg in previous 4 weeks: No History of PE or DVT: No Hemoptysis: No Malignancy w/Treatment within 6 months or palliative: No Wells' PE Score total: 3 Quality VTE Deep Vein Thrombosis/Pulmonary Embolism Present on Admission: No MIPS - Admit I confirm the patient?s Advance Care Plan is present, Code status is documented, Surrogate decision maker is in patient?s record [If Yes, STOP here]: Yes MIPS - DC The patient has current or prior documentation of left ventricular ejection fraction (LVEF) less than 40%, or moderate or severely depressed left ventricular systolic function.: No
--- NOTE | 2021-10-02 01:43 | PC.ADMIT ---
[id number] Admission Note: The patient,Michelle Emerson,80 y/o, was given written information regarding hospital policies, unit procedures and contact persons. Patient's smoking status: Former smoker. Vital Signs - 8 hr 10/01/21 19:25 10/01/21 19:58 10/01/21 20:00 Temperature Pulse Rate 90 85 87 Respiratory Rate 28 H Blood Pressure 128/58 L Pulse Oximetry 90 L 99 99 Oxygen Delivery Method Room Air 10/01/21 20:30 10/01/21 21:00 10/01/21 21:30 Temperature Pulse Rate 85 83 80 Respiratory Rate Blood Pressure Pulse Oximetry 99 97 99 Oxygen Delivery Method 10/01/21 22:00 10/01/21 22:25 10/01/21 22:25 Temperature Pulse Rate 80 83 Respiratory Rate Blood Pressure 118/83 Pulse Oximetry 99 93 Oxygen Delivery Method 10/01/21 22:30 10/01/21 22:42 10/01/21 22:42 Temperature Pulse Rate 78 78 Respiratory Rate Blood Pressure 104/62 Pulse Oximetry 98 98 Oxygen Delivery Method 10/01/21 23:00 10/01/21 23:00 10/01/21 23:30 Temperature Pulse Rate 82 Respiratory Rate Blood Pressure 102/52 L 113/51 L Pulse Oximetry 95 Oxygen Delivery Method 10/01/21 23:30 10/02/21 00:00 10/02/21 00:00 Temperature Pulse Rate 83 81 Respiratory Rate Blood Pressure 104/55 L Pulse Oximetry 95 97 Oxygen Delivery Method 10/02/21 00:30 10/02/21 00:30 10/02/21 00:50 Temperature 100.5 F H Pulse Rate 79 Respiratory Rate Blood Pressure 110/56 L Pulse Oximetry 97 Oxygen Delivery Method 10/02/21 01:36 Temperature Pulse Rate Respiratory Rate Blood Pressure Pulse Oximetry Oxygen Delivery Method Nasal Cannula Patient admitted to room 214 from ER per stretcher and assisted into bed using a slider board. Patient is alert but confused only able to state her name and that she is in [place]. When asked other orientation questions she has difficulty expressing herself and seems to search for words. [place] and does not have hearing aids but able to communicate needs to staff. Breath sounds CTA with RA sat of 91% so placed on oxygen at 1L/min per NC with sat improving to 95%; on continuous oximetry. HRR and telemetry placed with reading of SR; denies chest pain but reportedly had intermittent chest pain while in ER. Denies nausea. BT present and abdomen is soft. Is incontinent of B&B. Denies any pain. Bilateral calf SCD's applied. Noted laceration on left lateral lower leg; is steri-stripped. Daughter reports patient fell 5 days ago. Per daughter patient is non ambulatory but does get up and sits in wheelchair during the day. Fall risk score is high and bed alarm is activated. Oriented to bed controls and call light.
[2021-10-02 06:23] LABS: Add Manual Diff / Slide Review NO; Alanine Aminotransferase 13 IU/L (<35); Albumin 3.9 g/dL (3.5-5.0); Albumin Globulin Ratio 1.3 (1.0-2.8); Alkaline Phosphatase 53 U/L (38-126); Aspartate Aminotransferase 21 IU/L (14-36); BUN Creatinine Ratio 32.7 (6-22); Basophils Absolute Auto 0 /uL (0-100); Basophils Percent Auto 0.1 % (0-2); Bilirubin Total 0.3 mg/dL (0.2-1.3); Blood Urea Nitrogen 16 mg/dL (7-17); Calcium 8.6 mg/dL (8.4-10.2); Carbon Dioxide 29 mmol/L (22-32); Chloride 103 mmol/L (98-107); Eosinophils Absolute Auto 0 /uL (0-450); Eosinophils Percent Auto 0.1 % (2-4); Estimated Glomerular Filt Rate > 60 mL/min (>60); Globulin 2.9 g/dL (1.7-4.1); Glucose 125 mg/dL (80-110); HEMOLYSIS < 15 (0-50); Hematocrit 32.7 % (36-46); Hemoglobin 10.8 g/dL (12.0-16.0); Lymphocytes Absolute Auto 700 /uL (1100-4500); Magnesium 1.7 mg/dL (1.6-2.3); Mean Corpuscular HGB Conc 32.9 % (30-36); Mean Corpuscular Hemoglobin 28.7 PG (26-34); Mean Corpuscular Volume 87.2 fL (80-100); Monocytes Absolute Auto 1000 /uL (0-900); Monocytes Percent Auto 5.4 % (3-14); Neutrophils Absolute Auto 16500 /uL (1500-7000); Neutrophils Percent Auto 90.4 % (50-75); Platelet Count 267 X10^3/uL (150-400); Red Blood Cell Count 3.75 X10^6/uL (4.0-5.2); Red Cell Distribution Width 15.9 % (11.6-14.8); Sodium 136 mmol/L (137-145); Total Protein 6.8 g/dL (6.3-8.2); White Blood Cell Count 18.2 X10^3/uL (4.5-11.0)
[2021-10-02] MEDS: PANTOPRAZOLE DR 40 MG TABLET PO (08:51)
[2021-10-02] MEDS: ENOXAPARIN 40 MG/0.4 ML SYRINGE SUBCUT (08:51)
[2021-10-02] MEDS: SODIUM CHLORIDE 0.9% FLUSH 10 ML IV ×2 (08:51→21:38)
[2021-10-02] MEDS: CITALOPRAM 10 MG TABLET 20 MG PO (08:51)
[2021-10-02] MEDS: ALBUTEROL 2.5 MG/3 ML NEB (ADULT) INH (09:02)
[2021-10-02] MEDS: BUDESONIDE 0.5 MG/2 ML NEB INH ×2 (09:02→19:55)
[2021-10-02] MEDS: MAGNESIUM CHLORIDE 64 MG TABLET 128 MG PO (11:11)
[2021-10-02 12:06] LABS: Acinetobacter baumannii Not Detected (Not Detect); Candida albicans Not Detected (Not Detect); Candida glabrata Not Detected (Not Detect); Candida krusei Not Detected (Not Detect); Candida parapsilosis Not Detected (Not Detect); Candida tropicalis Not Detected (Not Detect); E. coli Not Detected (Not Detect); Enterobacter cloacae complex Not Detected (Not Detect); Enterobacteriaceae species Not Detected (Not Detect); Enterococcus species Not Detected (Not Detect); Haemophilus influenzae Not Detected (Not Detect); Listeria monocytogenes Not Detected (Not Detect); Methicillin-resistant gene Not Detected (Not Detect); Neisseria meningitidis Not Detected (Not Detect); Proteus species Not Detected (Not Detect); Pseudomonas aeruginosa Not Detected (Not Detect); Serratia marcescens Not Detected (Not Detect); Staphylococcus species Detected (Not Detect); Streptococcus agalactiae (Gr B Not Detected (Not Detect); Streptococcus pneumonia Not Detected (Not Detect); Streptococcus pyogenes (Gr A) Not Detected (Not Detect); Streptococcus species Not Detected (Not Detect)
[2021-10-02] MEDS: VANCOMYCIN 1,000 MG/200 ML PIGGYBACK 200 MG IV (13:32)
[2021-10-02] MEDS: ALBUTEROL/IPRATROPIUM 3 ML AMPUL INH ×3 (13:43→19:55)
[2021-10-02] MEDS: methylPREDNISolone 125 MG/2 ML VIAL 60 MG IV (17:29)
--- NOTE | 2021-10-02 21:01 | PM.PN.1 ---
Subjective Subjective Date Patient Seen: 10/02/21 Time Patient Seen: 08:00 Interval history: She says she feels lousy but can not more specifically tell me why. She is breathing with significant effor and audible wheezing. Exam Vital Signs (past 8 hours): - 10/02/21 13:44 10/02/21 17:04 10/02/21 17:35 Temperature 98.5 F Pulse Rate 86 81 Respiratory Rate 16 22 Blood Pressure 118/55 L Pulse Oximetry 94 94 98 Oxygen Delivery Method Nasal Cannula Nasal Cannula Oxygen Flow Rate 2 2 1 10/02/21 19:56 Temperature Pulse Rate Respiratory Rate 16 Blood Pressure Pulse Oximetry Oxygen Delivery Method Nasal Cannula Oxygen Flow Rate 2 Oxygen Delivery Method Nasal Cannula Oxygen Flow Rate 2 Narrative Exam Narrative: Gen: ill appearing Resp: coarse breath sounds, and wheezing especially on right lung CV: regular rate and rhythm, no murmurs Abd: soft, non-tender, normal bowel sounds Objective Labs Result Diagrams: 10/02/21 05:45 10/02/21 05:45 Labs: Laboratory Results - last 24 hr 10/01/21 10/01/21 10/02/21 19:47 19:48 05:45 WBC 18.2 H RBC 3.75 L Hgb 10.8 L Hct 32.7 L MCV 87.2 MCH 28.7 MCHC 32.9 RDW 15.9 H Plt Count 267 Neut % (Auto) 90.4 H Lymph % (Auto) 4.0 L [place] % (Auto) 5.4 Eos % (Auto) 0.1 L Baso % (Auto) 0.1 Neut # (Auto) 48469 H Lymph # (Auto) 700 L [place] # (Auto) 1000 H Eos # (Auto) 0 Baso # (Auto) 0 Sodium Potassium Chloride Carbon Dioxide BUN Creatinine Estimated GFR BUN/Creatinine Ratio Glucose Calcium Magnesium Total Bilirubin AST ALT Alkaline Phosphatase Total Protein Albumin Globulin Albumin/Globulin Ratio A. baumannii (PCR) Not detected Chlamy pneumoniae PCR Not detected Adenovirus (PCR) Not detected B. pertussis DNA (PCR) Not detected B.parapertussis DNA PCR Not detected Kallie albicans (PCR) Not detected C. glabrata (PCR) Not detected C. krusei (PCR) Not detected C. parapsilosis (PCR) Not detected C. tropicalis (PCR) Not detected Coronavirus OC43 (PCR) Not detected Coronavirus HKU1 (PCR) Not detected Coronavirus 229E (PCR) Not detected SARS-CoV-2 (PCR) Not detected Coronavirus NL63 (PCR) Not detected Enterobacteriac sp PCR Not detected E. cloacae complex PCR Not detected Enterococcus sp PCR Not detected E. coli (PCR) Not detected H. influenzae (PCR) Not detected Human Metapneumovir PCR Not detected Influenza Type A (PCR) Not detected Influenza Type B (PCR) Not detected Klebsiella oxytoca PCR Not detected Klebsiella pneumoniae Not detected List. monocytogenes PCR Not detected M. pneumoniae (PCR) Not detected N. meningitidis (PCR) Not detected Parainfluenza 1 (PCR) Not detected Parainfluenza 2 (PCR) Not detected Parainfluenza 3 (PCR) Not detected Parainfluenza 4 (PCR) Not detected Proteus species (PCR) Not detected RSV (PCR) Not detected Entero/Rhino (PCR) Not detected Serratia marcescens PCR Not detected Staphylococcus sp PCR Detected H Staph aureus (PCR) Detected H mecA-Methicil Res Gene Not detected Streptococcus sp PCR Not detected Group A Strep (PCR) Not detected Strep agalactiae (PCR) Not detected Strep pneumoniae (PCR) Not detected P. aeruginosa (PCR) Not detected Braden/B-Vanco Res Genes Not Reportable KPC-Carbap Res Gene PCR Not Reportable 10/02/21 05:45 WBC RBC Hgb Hct MCV MCH MCHC RDW Plt Count Neut % (Auto) Lymph % (Auto) Greene % (Auto) Eos % (Auto) Baso % (Auto) Neut # (Auto) Lymph # (Auto) Greene # (Auto) Eos # (Auto) Baso # (Auto) Sodium 136 L Potassium 4.0 Chloride 103 Carbon Dioxide 29 BUN 16 Creatinine 0.49 L Estimated GFR > 60 BUN/Creatinine Ratio 32.7 H Glucose 125 H Calcium 8.6 Magnesium 1.7 Total Bilirubin 0.3 AST 21 ALT 13 Alkaline Phosphatase 53 Total Protein 6.8 Albumin 3.9 Globulin 2.9 Albumin/Globulin Ratio 1.3 A. baumannii (PCR) Chlamy pneumoniae PCR Adenovirus (PCR) B. pertussis DNA (PCR) B.parapertussis DNA PCR Kallie albicans (PCR) C. glabrata (PCR) C. krusei (PCR) C. parapsilosis (PCR) C. tropicalis (PCR) Coronavirus OC43 (PCR) Coronavirus HKU1 (PCR) Coronavirus 229E (PCR) SARS-CoV-2 (PCR) Coronavirus NL63 (PCR) Enterobacteriac sp PCR E. cloacae complex PCR Enterococcus sp PCR E. coli (PCR) H. influenzae (PCR) Human Metapneumovir PCR Influenza Type A (PCR) Influenza Type B (PCR) Klebsiella oxytoca PCR Klebsiella pneumoniae List. monocytogenes PCR M. pneumoniae (PCR) N. meningitidis (PCR) Parainfluenza 1 (PCR) Parainfluenza 2 (PCR) Parainfluenza 3 (PCR) Parainfluenza 4 (PCR) Proteus species (PCR) RSV (PCR) Entero/Rhino (PCR) Serratia marcescens PCR Staphylococcus sp PCR Staph aureus (PCR) mecA-Methicil Res Gene Streptococcus sp PCR Group A Strep (PCR) Strep agalactiae (PCR) Strep pneumoniae (PCR) P. aeruginosa (PCR) Braden/B-Vanco Res Genes KPC-Carbap Res Gene PCR [facility] Medical History (Updated 10/02/21 @ 01:46 by DONNA Morales) Atherosclerosis Atrial fibrillation COPD (chronic obstructive pulmonary disease) Dementia Depression Hernia Hydrocephalus Low back pain Mild cognitive impairment Osteoporosis Parkinson disease Surgical History H/O left inguinal hernia repair Hx of tonsillectomy Family History Father Lung cancer Alcoholism Mother Hypertension Lung cancer Alcoholism Aspiration pneumonia Daughter Ovarian cancer Other Congestive heart failure Social History household members: none Smoking Status: Former smoker alcohol intake: former Assessment & Plan Assessment & Plan narrative: MS. Emerson is a 80W with PMH COPD who presents with shortness of breath found to have acute COPD, pneumonia, and staph aureus bacteremia. 1. Staph aureus bactermia -suspect secondary to pneumonia -continue treatment with IV antibiotics with vancomycin pending cultures being final -repeat blood culture on 10/03 2. Pneumonia -has history of aspiration -will consult speech therapy -staph aureus pneumonia less likely from aspiration -for now continue vanco, ceftriaxone, azithro, but likely can narrow abx with final cultures 3. Acute COPD exacerbation with acute hypoxemic respiratory failure -secondary from likely pneumonia -goal O2 sat >88% -continue prednisone, azithromycin, nebs Dementia, chronic Continue home dose of mirtazapine 30 mg p.o. at bedtime and citalopram 20 mg p.o. daily GERD, chronic -continue PPI COVID-19 COVID-19 status: Negative Result date/Date tested (Pos, Neg/Pending): 10/02/21 Time Spent With Patient Critical Care time: I spent a total of [] minutes of critical care time on this patient's care today; this time is exclusive of procedural time. Quality VTE Deep Vein Thrombosis/Pulmonary Embolism Present on Admission: No
[2021-10-02] MEDS: MIRTAZAPINE 15 MG TABLET 30 MG PO (21:38)
[2021-10-02] MEDS: AZITHROMYCIN 500 MG in DEXTROSE 5% IN WATER 250 ML 250 MG IV (21:38)
[2021-10-02] MEDS: cefTRIAXone 1,000 MG in SODIUM CHLORIDE 0.9% 100 ML 200 MG IV (23:02)
[2021-10-03] VITALS (10 sets, daily range): BP systolic 106–147; BP diastolic 32–53; PULSE 43–76; RESP 15–22; TEMP 35.6–36.7; O2SAT 92–96
[2021-10-03] MEDS: VANCOMYCIN 750 MG/150 ML PIGGYBACK 150 MG IV ×2 (02:29→13:29)
[2021-10-03] MEDS: methylPREDNISolone 125 MG/2 ML VIAL 60 MG IV ×2 (04:22→17:02)
[2021-10-03 08:16] LABS: Add Manual Diff / Slide Review NO; Basophils Absolute Auto 0 /uL (0-100); Basophils Percent Auto 0.1 % (0-2); Eosinophils Absolute Auto 0 /uL (0-450); Hematocrit 31.9 % (36-46); Hemoglobin 10.7 g/dL (12.0-16.0); Lymphocytes Absolute Auto 600 /uL (1100-4500); Lymphocytes Percent Auto 3.5 % (25-40); Mean Corpuscular HGB Conc 33.6 % (30-36); Mean Corpuscular Hemoglobin 29.1 PG (26-34); Mean Corpuscular Volume 86.6 fL (80-100); Monocytes Absolute Auto 300 /uL (0-900); Monocytes Percent Auto 1.4 % (3-14); Neutrophils Absolute Auto 17400 /uL (1500-7000); Platelet Count 299 X10^3/uL (150-400); Red Blood Cell Count 3.68 X10^6/uL (4.0-5.2); Red Cell Distribution Width 15.6 % (11.6-14.8); White Blood Cell Count 18.3 X10^3/uL (4.5-11.0)
[2021-10-03 08:33] LABS: Alanine Aminotransferase 12 IU/L (<35); Albumin 3.4 g/dL (3.5-5.0); Albumin Globulin Ratio 1.1 (1.0-2.8); Alkaline Phosphatase 58 U/L (38-126); Aspartate Aminotransferase 19 IU/L (14-36); BUN Creatinine Ratio 27.7 (6-22); Bilirubin Total 0.2 mg/dL (0.2-1.3); Blood Urea Nitrogen 13 mg/dL (7-17); Calcium 8.9 mg/dL (8.4-10.2); Carbon Dioxide 28 mmol/L (22-32); Chloride 107 mmol/L (98-107); Estimated Glomerular Filt Rate > 60 mL/min (>60); Glucose 138 mg/dL (80-110); HEMOLYSIS < 15 (0-50); Potassium 3.9 mmol/L (3.4-5.1); Sodium 138 mmol/L (137-145); Total Protein 6.4 g/dL (6.3-8.2)
[2021-10-03] MEDS: ALBUTEROL/IPRATROPIUM 3 ML AMPUL INH ×5 (08:34→23:12)
[2021-10-03] MEDS: BUDESONIDE 0.5 MG/2 ML NEB INH (08:34)
[2021-10-03] MEDS: CITALOPRAM 10 MG TABLET 20 MG PO (09:44)
[2021-10-03] MEDS: ENOXAPARIN 40 MG/0.4 ML SYRINGE SUBCUT (09:44)
[2021-10-03] MEDS: PANTOPRAZOLE DR 40 MG TABLET PO (09:44)
[2021-10-03] MEDS: SODIUM CHLORIDE 0.9% FLUSH 10 ML IV ×2 (09:45→21:56)
--- NOTE | 2021-10-03 10:25 | SLP.IPNOTE ---
Spoke with MD mcgee; pt's overall diagnoses and prognosis indicating that pt is currently not a good candidate for st. Nursing reported that pt was able to take medications with water without difficulty. Holding on current ST orders.
--- NOTE | 2021-10-03 11:31 | DIET.CONS ---
Dietary Consultation Note Admission Date: 10/02/2021 00:37 Assessment: 80 y/o F admitted with community acquired pneumonia. PMH of Parkinson's disease, dementia, and osteoporosis. Her daughter Chayito is at bedside and assisted with assessment questions. States her mother seems to generally have a good appetite. Reports having a robust breakfast with her mother some days (gomez, eggs, fruit, bread). Unclear about how she is eating later in the day. Does not seem to be using ONS to support PO intake. Enjoys ensure. Pat reports eating two meals per day. 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 BMI severely low for age at 18.8 (<21), though has improved from last admission (BMI 17.7) 0.2kg loss since 03/2021 admission, but has had an overall 23.7% loss this year as described above. NFPE: Severe scooping of temporal region, boxed shoulders, prominent clavicle, depressed interosseous muscle and orbital area, indicating muscle wasting and fat losses. Ht: 147.32 cm Wt: 41 kg BMI: 18.8 UBW: 54kg prior to move into memory care unit Last BM: () MNA: 5 Alvin Score: 15 Diet: 10/02/21 Breakfast General (Regular) Diet Diet Modifications: Nutrition Percent Meal Consumed 75% 10/02/21 09:00 Labs: RBC 3.68 X10^6/uL (4.0-5.2) L 10/03/21 07:50 Hgb 10.7 g/dL (12.0-16.0) L 10/03/21 07:50 Hct 31.9 % (36-46) L 10/03/21 07:50 Creatinine 0.47 mg/dL (0.52-1.04) L 10/03/21 07:50 Lactate 1.3 mmol/L (0.7-2.1) 10/01/21 19:20 NT-Pro-B Natriuret Pep 493 pg/mL (<450) H 10/01/21 19:20 Nutrition Diagnosis: chronic protein calorie malnutrition r/t progression of parkinsons dementia, change in living arrangement, predicted infrequent eating occurrences aeb 24.3% unintentional weight loss in 9mo from June 2020 to Mar 2021 since moving into memory care unit, severely low BMI for age, positive nutrition focused physical exam, and reported 2 meals per day without ONS. Interventions: 1. Recc ONS Ensure Enlive bid moving forward to support hydration and macro/micronutrient needs. Monitoring/Evaluations: ONS tolerance, weight, PO Electronically Signed by: Macarena Chery 10/03/21 11:31 Clinical Dietitian [address] [id number]
[2021-10-03] MEDS: POTASSIUM CHLORIDE 20 MEQ TAB PO (12:11)
[2021-10-03 13:13] LABS: Magnesium 2.1 mg/dL (1.6-2.3)
--- NOTE | 2021-10-03 13:28 | P.PN_ITS ---
Subjective Subjective Date Patient Seen: 10/03/21 Interval history: [age]-old female who was admitted yesterday from a local memory care unit with multifocal bilateral pneumonia and COPD exacerbation. Patient denies any shortness of breath currently. She denies any trouble with her breathing. She also denies any lightheadedness, dizziness, or chest pain. RN expressed concern about bradycardia with heart rates in the 40s this morning; she is not on any elise blocking agents. Exam Vital Signs (past 8 hours): - 10/03/21 08:34 10/03/21 08:25 10/03/21 10:00 Temperature 96.5 F L Pulse Rate 65 66 Respiratory Rate 18 22 Blood Pressure 110/45 L Pulse Oximetry 96 96 Oxygen Delivery Method Nasal Cannula Nasal Cannula Oxygen Flow Rate 2 2 10/03/21 11:12 Temperature Pulse Rate 54 L Respiratory Rate 16 Blood Pressure Pulse Oximetry 94 Oxygen Delivery Method Nasal Cannula Oxygen Flow Rate 1 Oxygen Delivery Method Nasal Cannula Oxygen Flow Rate 1 Narrative Exam Narrative: GEN: Alert and oriented x 1, NAD HEENT:NC, Face symmetric CHEST: Respiratory excursions symmetric, CTAB CV: Regularly irregular, no M/R/G ABD: Soft, NT/ND, BT present in all 4 quadrants, no organomegaly or masses EXTR: warm, well perfused, no C/C/E SKIN: warm and dry, no rash NEURO: Alert and oriented x 3, nonfocal Objective Labs Result Diagrams: 10/03/21 07:50 10/03/21 07:50 Labs: Laboratory Results - last 24 hr 10/03/21 10/03/21 10/03/21 07:50 07:50 07:50 WBC 18.3 H RBC 3.68 L Hgb 10.7 L Hct 31.9 L MCV 86.6 MCH 29.1 MCHC 33.6 RDW 15.6 H Plt Count 299 Neut % (Auto) 95.0 H Lymph % (Auto) 3.5 L [place] % (Auto) 1.4 L Eos % (Auto) 0.0 L Baso % (Auto) 0.1 Neut # (Auto) 52179 H Lymph # (Auto) 600 L [place] # (Auto) 300 Eos # (Auto) 0 Baso # (Auto) 0 Sodium 138 Potassium 3.9 Chloride 107 Carbon Dioxide 28 BUN 13 Creatinine 0.47 L Estimated GFR > 60 BUN/Creatinine Ratio 27.7 H Glucose 138 H Calcium 8.9 Magnesium 2.1 Total Bilirubin 0.2 AST 19 ALT 12 Alkaline Phosphatase 58 Total Protein 6.4 Albumin 3.4 L Globulin 3.0 Albumin/Globulin Ratio 1.1 PFSH Medical History (Updated 10/02/21 @ 01:46 by DONNA Morales) Atherosclerosis Atrial fibrillation COPD (chronic obstructive pulmonary disease) Dementia Depression Hernia Hydrocephalus Low back pain Mild cognitive impairment Osteoporosis Parkinson disease Surgical History H/O left inguinal hernia repair Hx of tonsillectomy Family History Father Lung cancer Alcoholism Mother Hypertension Lung cancer Alcoholism Aspiration pneumonia Daughter Ovarian cancer Other Congestive heart failure Social History household members: none Smoking Status: Former smoker alcohol intake: former Assessment & Plan Assessment & Plan narrative: 1. Staph aureus bacteremia 2/2 bottles from [facility] are positive for Staph aureus, the other is negative. Certainly, it could be a contaminant as the positive cultures came from 1 draw site. Remaining cultures remain negative thus far. Continue vancomycin. Await sensitivities. 2. Multifocal pneumonia She does have previous history of aspiration. Continue Rocephin, azithromycin, and vancomycin. 3. COPD exacerbation Likely from pneumonia. Remains on prednisone and azithromycin as well as nebulizer treatments. 4. Depression Remains on mirtazapine at bedtime and citalopram. 5. Bradycardia Based on exam, I suspect she has underlying bigeminy. Will obtain a stat EKG, give a dose of potassium for goal potassium level above 4, and check a magnesium level. 6. Dementia Appears to be at baseline 7. Parkinson's disease Does not appear to be treated on an outpatient basis. Code status DNR DNI Prophylaxis On Lovenox Disposition Plan to return to her memory care unit at discharge. Daughter was at bedside and was updated with plan of care Time Spent With Patient Critical Care time: I spent a total of [] minutes of critical care time on this patient's care today; this time is exclusive of procedural time. Quality VTE Deep Vein Thrombosis/Pulmonary Embolism Present on Admission: No
[2021-10-03] MEDS: MIRTAZAPINE 15 MG TABLET 30 MG PO (21:54)
[2021-10-03] MEDS: AZITHROMYCIN 500 MG in DEXTROSE 5% IN WATER 250 ML 250 MG IV (21:54)
[2021-10-03] MEDS: cefTRIAXone 1,000 MG in SODIUM CHLORIDE 0.9% 100 ML 200 MG IV (22:57)
[2021-10-04] VITALS (9 sets, daily range): BP systolic 104–138; BP diastolic 43–55; PULSE 68–93; RESP 15–20; TEMP 35.9–37.2; O2SAT 91–100
[2021-10-04] MEDS: methylPREDNISolone 125 MG/2 ML VIAL 60 MG IV ×2 (04:15→16:45)
--- NOTE | 2021-10-04 07:12 | P.PN_ITS ---
Subjective Subjective Date Patient Seen: 10/04/21 Interval history: 80 year-old female who is presently hospital day 2., admitted from a local memory care unit with multifocal bilateral pneumonia and COPD exacerbation. Patient denies any shortness of breath currently.? She does have some increased work of breathing. She states she is feeling better overall today has slightly more energy. However, she reports she is continuing to feel somewhat poor overall. Appetite is improved. Exam Vital Signs (past 8 hours): - 10/03/21 23:13 10/04/21 01:49 10/04/21 05:42 Temperature 96.6 F L 97.1 F L Pulse Rate 68 85 Respiratory Rate 20 17 15 Blood Pressure 130/53 L 138/43 L Pulse Oximetry 93 95 Oxygen Delivery Method Nasal Cannula Oxygen Flow Rate 1 Narrative Exam Narrative: GEN: Alert and oriented x 2, NAD HEENT:NC, Face symmetric CHEST: Respiratory excursions symmetric, increase workup breathing with supraclavicular retractions, breath sounds are diminished CV:? RRR,, no M/R/G ABD: Soft, NT/ND, BT present in all 4 quadrants, no organomegaly or masses EXTR: warm, well perfused, no C/C/E SKIN: warm and dry, no rash NEURO: Alert and oriented x 2, nonfocal Objective Labs Result Diagrams: 10/04/21 10:15 10/04/21 10:15 Labs: Laboratory Results - last 24 hr 10/03/21 10/03/21 10/03/21 07:50 07:50 07:50 WBC 18.3 H RBC 3.68 L Hgb 10.7 L Hct 31.9 L MCV 86.6 MCH 29.1 MCHC 33.6 RDW 15.6 H Plt Count 299 Neut % (Auto) 95.0 H Lymph % (Auto) 3.5 L [place] % (Auto) 1.4 L Eos % (Auto) 0.0 L Baso % (Auto) 0.1 Neut # (Auto) 13662 H Lymph # (Auto) 600 L [place] # (Auto) 300 Eos # (Auto) 0 Baso # (Auto) 0 Sodium 138 Potassium 3.9 Chloride 107 Carbon Dioxide 28 BUN 13 Creatinine 0.47 L Estimated GFR > 60 BUN/Creatinine Ratio 27.7 H Glucose 138 H Calcium 8.9 Magnesium 2.1 Total Bilirubin 0.2 AST 19 ALT 12 Alkaline Phosphatase 58 Total Protein 6.4 Albumin 3.4 L Globulin 3.0 Albumin/Globulin Ratio 1.1 PFSH Medical History (Updated 10/02/21 @ 01:46 by DONNA Morales) Atherosclerosis Atrial fibrillation COPD (chronic obstructive pulmonary disease) Dementia Depression Hernia Hydrocephalus Low back pain Mild cognitive impairment Osteoporosis Parkinson disease Surgical History H/O left inguinal hernia repair Hx of tonsillectomy Family History Father Lung cancer Alcoholism Mother Hypertension Lung cancer Alcoholism Aspiration pneumonia Daughter Ovarian cancer Other Congestive heart failure Social History household members: none Smoking Status: Former smoker alcohol intake: former Assessment & Plan Assessment & Plan narrative: 1. MSSA bacteremia 2/2 bottles from one draw site are positive for MSSA, the other is negative.? Certainly, it could be a contaminant as the positive cultures came from 1 draw site.? Remaining cultures remain negative thus far.? Continue Rocephin.? 2. Multifocal pneumonia She does have previous history of aspiration.? Continue Rocephin, azithromycin 3. COPD exacerbation Likely from pneumonia.? Remains on prednisone and azithromycin as well as neb ulizer treatments. She does have somewhat increased work of breathing today, and is a bit more diminished, but no wheezing. 4. Depression Remains on mirtazapine at bedtime and citalopram.? 5. Bigeminy EKG revealed bigeminy yesterday. She had a normal magnesium level. Was also given a small dose of potassium. Bigeminy has resolved. 6. Dementia Appears to be at baseline 7. Parkinson's disease Does not appear to be treated on an outpatient basis. Code status DNR DNI Prophylaxis On Lovenox Disposition Plan to return to her memory care unit at discharge.? Daughter was at bedside and was updated with plan of care Time Spent With Patient Critical Care time: I spent a total of [] minutes of critical care time on this patient's care today; this time is exclusive of procedural time. Quality VTE Deep Vein Thrombosis/Pulmonary Embolism Present on Admission: No
--- NOTE | 2021-10-04 08:53 | CM.DANOTE ---
Initial DCP Assessment Note Pt is a 80 yo female, resident at [facility] in [place], PMH includes COPD , patient arrives from her facility w/Low O2 Sat, found to have bilateral pneumonia PCP: Mayela Wade Payer: [employer] Placed call to patient's spouse Juliocesar, who currently lives at [facility] ([facility]) and requests all contact and coordination go through his dtr Chayito P# [phone]. Juliocesar expects patient will return to Memory care when medically stable. Supportive dtr Chayito has been at bedside and available for medical updates; patient is mostly w/c bound at per dtr and still has mostly good appetite, remains pleasant and cooperative with care Placed call to Macarena at [facility] P# [phone] Macarena's work cell P# [phone], [facility] answered and will have Macarena or alt staff member get in touch with this INFRASTRUCTURE DIRECTOR re: eventual coordination of patient's return home. staff can assist patient w/Neb treatments if prescribed upon DC, not O2 Plan: DC expected to be return to [facility], likely via family pov Discharge Planning/Care Management CM Discharge Assessment Start: 10/04/21 08:50 Freq: Status: Active Protocol: Document 10/04/21 08:50 WALKER (Rec: 10/04/21 08:53 WALKER [id number]) Discharge Planning Assessment Assigned Health Services Coordinator MILLICENT Richards DPOA/Assigned Designee Name Jade Jung, dalton ([place]) Contact Information [phone] Advance Directives? Yes: POLST Advance Directives on File Yes History Provided By Family Member,Medical Record Has Patient been admitted in last 30 No days? Comment Here [id number] Prior Living Arrangements Assisted Living Household Members none Type of transporation used prior to Relies on Others admit Facility Name Admitted From: [facility] Care Willing to Return to Facility? Yes Independent with ADL's No: Mostly w/c bound Is patient alert and oriented? No: Dementia Needs Assistance With Bathing,Grooming,Meal Prep, Toileting,Managing Medications ,Home Chores / Shopping Barriers to Discharge No Comment Return to upon Discharge Discharge Plan Assisted Living Facility Transportation Arrangement Likely family pov Referrals Initiated None needed Additional Comment No referrals needed at this time
[2021-10-04] MEDS: CITALOPRAM 10 MG TABLET 20 MG PO (09:53)
[2021-10-04] MEDS: PANTOPRAZOLE DR 40 MG TABLET PO (09:53)
[2021-10-04] MEDS: ENOXAPARIN 30 MG/0.3 ML SYRINGE SUBCUT (09:53)
[2021-10-04] MEDS: SODIUM CHLORIDE 0.9% FLUSH 10 ML IV ×3 (09:54→22:19)
[2021-10-04 10:33] LABS: Add Manual Diff / Slide Review NO; Basophils Absolute Auto 0 /uL (0-100); Basophils Percent Auto 0.1 % (0-2); Eosinophils Absolute Auto 100 /uL (0-450); Eosinophils Percent Auto 0.3 % (2-4); Hematocrit 34.8 % (36-46); Hemoglobin 11.6 g/dL (12.0-16.0); Lymphocytes Absolute Auto 400 /uL (1100-4500); Lymphocytes Percent Auto 2.2 % (25-40); Mean Corpuscular HGB Conc 33.4 % (30-36); Mean Corpuscular Hemoglobin 29.2 PG (26-34); Mean Corpuscular Volume 87.4 fL (80-100); Monocytes Absolute Auto 300 /uL (0-900); Monocytes Percent Auto 1.8 % (3-14); Neutrophils Absolute Auto 16300 /uL (1500-7000); Neutrophils Percent Auto 95.6 % (50-75); Platelet Count 345 X10^3/uL (150-400); Red Blood Cell Count 3.98 X10^6/uL (4.0-5.2); Red Cell Distribution Width 16.1 % (11.6-14.8); White Blood Cell Count 17.1 X10^3/uL (4.5-11.0)
[2021-10-04 10:45] LABS: Alanine Aminotransferase 16 IU/L (<35); Albumin 3.6 g/dL (3.5-5.0); Albumin Globulin Ratio 1.2 (1.0-2.8); Alkaline Phosphatase 54 U/L (38-126); Aspartate Aminotransferase 19 IU/L (14-36); BUN Creatinine Ratio 30.1 (6-22); Blood Urea Nitrogen 22 mg/dL (7-17); Carbon Dioxide 27 mmol/L (22-32); Chloride 108 mmol/L (98-107); Estimated Glomerular Filt Rate > 60 mL/min (>60); Glucose 203 mg/dL (80-110); HEMOLYSIS < 15 (0-50); Potassium 3.9 mmol/L (3.4-5.1); Sodium 142 mmol/L (137-145); Total Protein 6.6 g/dL (6.3-8.2)
[2021-10-04 10:47] LABS: Bilirubin Total < 0.1 mg/dL (0.2-1.3)
--- NOTE | 2021-10-04 12:09 | ST.IPIE ---
Visit Care Team Role Provider Type DONNA Mann Primary Care Provider Non-Staff Specialty: Medical Address: [address] [place] [address], [facility] Email: Milla Ma MD Emergency Provider Physician Referring Provider Specialty: Emergency Medicine Address: [address] [place] [address] Email: DONNA Morales Admit Provider Physician Attending Provider Specialty: Internal Medicine Address: [address] [place] [address] Email: [email or web address] Current Diagnoses Pneumonia, unspecified organism (10/02/21) Past Medical History (Last Updated 10/02/21 @ 01:46 by DONNA Morales) Atherosclerosis (Medical) Atrial fibrillation (Medical) COPD (chronic obstructive pulmonary disease) (Medical) Dementia (Medical) Depression (Medical) Hernia (Medical) Hydrocephalus (Medical) Low back pain (Medical) Mild cognitive impairment (Medical) Osteoporosis (Medical) Parkinson disease (Medical) ST IP Initial Evaluation Report INCOME TAX INVESTIGATOR Clinical Swallow Evaluation Start: 10/04/21 11:50 Freq: Status: Active Protocol: Document 10/04/21 11:50 MG (Rec: 10/04/21 12:08 MG [id number]) Clinical Swallow Evaluation Session Time Visit Start Time 11:15 Visit Stop Time 11:45 Total Visit Minutes 30 Visit Information Visit Number 1 Setting Assessment Location Acute Care Visit Type Note Type Initial evaluation Next Note Type Next Note Type Treatment Note Patient Information Identification Type Name,Wristband History Pt is a 80-year-old female resident of [facility] with a history of COPD and is a former smoker was brought into the emergency department due to low oxygen saturation in the 80s. She was administered a treatment and apparently she did not improve , and was ambulanced to [facility]. Pt is severely demented and hard of hearing, daughter?Chayito provides much of the history. Chest xray reported ?Subtle bilateral pulmonary opacities could represent multifocal infection ..., large hiatal hernia. Pt currently inpatient with multifocal bilateral pneumonia and COPD exacerbation. Subjective Observations Pt was sitting upright in bed with daughter at bedside. Pt was talkative and agreeable to a swallow evaluation. Pt followed all verbal directions well. Per nurse, the pt had a severe episode at her care facility during a meal which resulting in her vomiting and had difficulty breathing. Nurse also noted when she is in the room and the pt is using a straw to drink thin liquids, she has a gurgly voice. Pt typically takes pills with water, however due to safety they have been administered with a carrier and no overt s/sx of aspiration noted at that time. Pt's daughter reports that she feels her mother has had some difficulties with swallowing for a little while , but no other areas of weakness noted at this time. Of note, the pt appeared alert and aware of situation and surroundings on this day. Was engaged in evaluation and asked appropriate questions. Reported by Patient Other Symptoms Choking,Coughing,History of aspiration or pneumonia,Weight loss Current Diet Regular,Thin liquids Baseline Feeding Method Needs some assistance Objective Assessment Mental Status Alert,Responsive,Cooperative, Confused Oral Integrity WFL Dentition Missing teeth,Decay Lip Function Mild impairment Observation of Lips at Rest Symmetrical Pucker Within normal limits Lip Retraction Within normal limits Alternating Pucker/Lip Retraction Reduced range of motion, Incoordination Tongue Function Mild impairment Observations of Tongue at Rest Within normal limits Tongue Protrusion Reduced range of motion, Reduced strength Tongue Retraction Reduced range of motion, Reduced strength Tongue Lateralization Reduced range of motion, Reduced strength Jaw Function Within normal limits Observations of Jaw at Rest Within normal limits Jaw Opening Within normal limits Jaw Closing Within normal limits Jaw Lateralization Within normal limits Jaw Protrusion Within normal limits Jaw Retraction Within normal limits Hard/Soft Palate Function Within normal limits Observations of Hard/Soft Palate Within normal limits Nasality Within normal limits Phonation Hoarse Respiratory Sufficiency Mild impairment Comment Pt participated in formal OME examination prior to PO trials . Some reduced strength and range of motion noted and overall minimal weakness observed. Food and Liquid Trials Position During Assessment Upright (90 degrees) Liquids Trialed Ice chips,Thin Solids Trialed Puree,Dysphagia Mechanical Administration Type Tea spoon,Cup single sip, Controlled cup sip,Straw,Needs some assistance Oral Impairment Mildly impaired Oral Phase Comments No anterior spillage observed on all trials. During mastication of dysphagia mechanical, the pt did take a minimally longer time to chew food, but cleared oral cavity. Pt and daughter note that she is typically a slower eater and takes her time with chewing. Pharyngeal Impairment Mildly impaired Pharyngeal Phase Comments Laryngeal palpation indicated adequate hyolaryngeal movement but reduced anterior hyoid excursion. When pt was instructed to take a sip from the cup, this INCOME TAX INVESTIGATOR noted the pt take multiple sips and a wet/ gurgly voice was present after spontaneous double swallow. When prompted to take one sip and swallow twice, no overt s/ sx of aspiration noted and no wet/gurgly voice observed. Instructed pt to continue taking single sips with double swallow appears to be effective in clearing pharyngeal cavity at this time . On trials of puree and dysphagia mechanical, the pt continued to use a spontaneous double swallow with no overt s/sx of aspiration observed and no wet/gurgly voice heard. O2 levels remained between 96 -100 during the entirety of the evaluation. Fatigue/Endurance Mild fatigue Comment INCOME TAX INVESTIGATOR noted the pt appeared slightly more fatigued towards the end of the evaluation period. When prompted, the pt said sometimes the fatigue just hits out of nowhere. Strategies Attempted Other Response/Comments Spontaneous double swallow observed and appeared effective for the pt at this time. Findings Swallowing Function Oropharyngeal phase dysphagia Severity of Swallow Impairment Mildly-moderately impaired Contributing Factors to Swallow Reduced oral strength/ Impairment coordination/sensation, Impaired oral-pharyngeal transport,Impaired airway protection,Excessive pharyngeal residue Prognosis Fair Based on Cognitive status,History of aspiration/aspiration pneumonia,Duration of symptoms /severity Impact on Safety and Functioning Risk for aspiration,Risk for inadequate nutrition/hydration Recommendations Instrumental Assessment No Swallowing Treatment Yes Frequency F/U for diet tolerance and patient/family education Recommended Solids Dysphagia Mechanical Recommended Liquids Thin Other Recommendations Single bites/sips Safety Precautions/Swallowing Feed only when alert,Remain Recommendations upright (90 degrees) during all oral intake,Needs verbal cues to use recommended strategies,Small bites and sips when eating,Slow rate; swallow between bites,Multiple swallows,Alternate liquids and solids Medication Recommendations As Tolerated,Whole in Carrier, Crushed in Carrier Discharge Recommendations custodial care facility Education Patient/Caregiver Education Described results of evaluation,Patient expressed understanding of evaluation, Patient expressed agreement with goals & treatment plans, Family/caregivers expressed understanding of evaluation, Family/caregivers expressed agreement with goals & treatment plans,Patient expressed understanding of safety precautions,Patient expressed understanding of feeding recommendations,Family /caregivers expressed understanding of safety precautions,Family/caregivers expressed understanding of feeding recommendations, Patient requires further education/training,Family/ caregivers require further education/training Goals Short-term Goals Pt and family will participate in further education re: safe swallow strategies to implement once discharged, diet modifications Pt will participate in further evaluation to determine if diet advancement in needed. Long-term Goals Pt will tolerate least restrictive diet without demonstrating overt s/sx of aspiration.
[2021-10-04] MEDS: ALBUTEROL/IPRATROPIUM 3 ML AMPUL INH ×2 (12:56→19:51)
[2021-10-04] MEDS: BUDESONIDE 0.5 MG/2 ML NEB INH ×2 (12:56→19:52)
[2021-10-04] MEDS: ALBUTEROL 2.5 MG/3 ML NEB (ADULT) INH (16:54)
[2021-10-04] MEDS: AZITHROMYCIN 500 MG in DEXTROSE 5% IN WATER 250 ML 250 MG IV (22:18)
[2021-10-04] MEDS: cefTRIAXone 1,000 MG in SODIUM CHLORIDE 0.9% 100 ML 200 MG IV (22:19)
[2021-10-04] MEDS: MIRTAZAPINE 15 MG TABLET 30 MG PO (22:19)
[2021-10-05] VITALS (11 sets, daily range): BP systolic 122–150; BP diastolic 39–64; PULSE 68–93; RESP 14–22; TEMP 36.1–36.8; O2SAT 92–99
[2021-10-05] MEDS: methylPREDNISolone 125 MG/2 ML VIAL 40 MG IV ×2 (05:35→17:55)
--- NOTE | 2021-10-05 05:36 | P.PN_ITS ---
Subjective Subjective Date Patient Seen: 10/05/21 Interval history: 80 year-old female who is presently hospital day 3, admitted from a local memory care unit with possible multifocal bilateral pneumonia and COPD exacerbation. She had 2 blood culture bottles from one draw site grow MSSA but the other draw site within 30 minutes on the same day as well as f/u cx were negative. Patient reports she is a bit more short of breath today. She was eating lunch and developed a cough. She believes the food may have gone down the wrong way. She states she is not remembering the techniques that were tapped by speech therapy to her yesterday. She did have a breathing treatment a short while ago. Exam Vital Signs (past 8 hours): - 10/04/21 21:45 10/05/21 05:15 Temperature 98.1 F 97.1 F L Pulse Rate 87 68 Respiratory Rate 16 17 Blood Pressure 111/50 L 150/56 H Pulse Oximetry 96 98 Fraction of Inspired Oxygen 24 Oxygen Delivery Method Nasal Cannula Oxygen Flow Rate 1 Narrative Exam Narrative: GEN: Alert and oriented x 2, NAD HEENT:NC, Face symmetric CHEST: Respiratory excursions symmetric, increase workup breathing with supraclavicular retractions, diffuse expiratory wheezes CV:? RRR,, no M/R/G ABD: Soft, NT/ND, BT present in all 4 quadrants, no organomegaly or masses EXTR: warm, well perfused, no C/C/E SKIN: warm and dry, no rash NEURO: Alert and oriented x 2, nonfocal Objective Labs Result Diagrams: 10/05/21 06:20 10/05/21 06:20 Labs: Laboratory Results - last 24 hr 10/04/21 10/04/21 10:15 10:15 WBC 17.1 H RBC 3.98 L Hgb 11.6 L Hct 34.8 L MCV 87.4 MCH 29.2 MCHC 33.4 RDW 16.1 H Plt Count 345 Neut % (Auto) 95.6 H Lymph % (Auto) 2.2 L [place] % (Auto) 1.8 L Eos % (Auto) 0.3 L Baso % (Auto) 0.1 Neut # (Auto) 29913 H Lymph # (Auto) 400 L [place] # (Auto) 300 Eos # (Auto) 100 Baso # (Auto) 0 Sodium 142 Potassium 3.9 Chloride 108 H Carbon Dioxide 27 BUN 22 H Creatinine 0.73 Estimated GFR > 60 BUN/Creatinine Ratio 30.1 H Glucose 203 H Calcium 9.0 Total Bilirubin < 0.1 L AST 19 ALT 16 Alkaline Phosphatase 54 Total Protein 6.6 Albumin 3.6 Globulin 3.0 Albumin/Globulin Ratio 1.2 [facility] Medical History (Updated 10/02/21 @ 01:46 by DONNA Morales) Atherosclerosis Atrial fibrillation COPD (chronic obstructive pulmonary disease) Dementia Depression Hernia Hydrocephalus Low back pain Mild cognitive impairment Osteoporosis Parkinson disease Surgical History H/O left inguinal hernia repair Hx of tonsillectomy Family History Father Lung cancer Alcoholism Mother Hypertension Lung cancer Alcoholism Aspiration pneumonia Daughter Ovarian cancer Other Congestive heart failure Social History household members: none Smoking Status: Former smoker alcohol intake: former Assessment & Plan Assessment & Plan narrative: 1. MSSA bacteremia 2/2 bottles from one draw site are positive for MSSA, the other is negative.? Certainly, it could be a contaminant as the positive cultures came from 1 draw site.? Remaining cultures remain negative thus far.?Urine culture not done on admission, will obtain culture today (although may be falsely negative d/t being on abx). Discussed w/ID who advised that if multifocal pneumonia is felt to be unlikely based on minimal involvement on CXR and clinical picture, could d/c abx and repeat BC in 3 days. If negative, no need for further tx. 2. Possible multifocal pneumonia She does have previous history of aspiration.? Continue Rocephin, azithromycin. Clinically, she is improving. 3. COPD exacerbation Likely from pneumonia.? Remains on solumedrol 40 mg IV b.i.d. and azithromycin as well as budesonide and DuoNebs. She does have increased work of breathing again today and audible wheezes. Will continue current dosing of Solu-Medrol. Hopefully she can transition to oral steroids tomorrow. 4. Depression Remains on mirtazapine at bedtime and citalopram.? 5. Bigeminy On ECG/exam on 10/03. Resolved. 6. Dementia Appears to be at baseline 7. Parkinson's disease Does not appear to be treated on an outpatient basis. Code status DNR DNI Prophylaxis On Lovenox Disposition Plan to return to her memory care unit at discharge.? Hopefully she will feel of the discharge in the next 24 hours of her respiratory symptoms improved. Time Spent With Patient Critical Care time: I spent a total of [] minutes of critical care time on this patient's care today; this time is exclusive of procedural time. Quality VTE Deep Vein Thrombosis/Pulmonary Embolism Present on Admission: No
[2021-10-05 06:39] LABS: Add Manual Diff / Slide Review NO; Basophils Absolute Auto 0 /uL (0-100); Basophils Percent Auto 0.1 % (0-2); Eosinophils Absolute Auto 0 /uL (0-450); Hemoglobin 10.2 g/dL (12.0-16.0); Lymphocytes Absolute Auto 800 /uL (1100-4500); Lymphocytes Percent Auto 5.5 % (25-40); Mean Corpuscular HGB Conc 32.8 % (30-36); Mean Corpuscular Hemoglobin 28.8 PG (26-34); Mean Corpuscular Volume 87.6 fL (80-100); Monocytes Absolute Auto 500 /uL (0-900); Monocytes Percent Auto 3.3 % (3-14); Neutrophils Absolute Auto 13200 /uL (1500-7000); Neutrophils Percent Auto 91.1 % (50-75); Platelet Count 365 X10^3/uL (150-400); Red Blood Cell Count 3.54 X10^6/uL (4.0-5.2); Red Cell Distribution Width 15.8 % (11.6-14.8); White Blood Cell Count 14.5 X10^3/uL (4.5-11.0)
[2021-10-05 06:46] LABS: Blood Urea Nitrogen 26 mg/dL (7-17); Calcium 8.6 mg/dL (8.4-10.2); Carbon Dioxide 30 mmol/L (22-32); Chloride 106 mmol/L (98-107); Estimated Glomerular Filt Rate > 60 mL/min (>60); Glucose 128 mg/dL (80-110); HEMOLYSIS < 15 (0-50); Potassium 4.1 mmol/L (3.4-5.1); Sodium 138 mmol/L (137-145)
[2021-10-05] MEDS: ALBUTEROL/IPRATROPIUM 3 ML AMPUL INH ×5 (07:21→19:35)
[2021-10-05] MEDS: BUDESONIDE 0.5 MG/2 ML NEB INH ×2 (07:21→19:35)
[2021-10-05] MEDS: CITALOPRAM 10 MG TABLET 20 MG PO (09:33)
[2021-10-05] MEDS: ENOXAPARIN 30 MG/0.3 ML SYRINGE SUBCUT (09:33)
[2021-10-05] MEDS: PANTOPRAZOLE DR 40 MG TABLET PO (09:33)
[2021-10-05] MEDS: SODIUM CHLORIDE 0.9% FLUSH 10 ML IV ×4 (09:34→22:10)
--- NOTE | 2021-10-05 13:53 | PC.NURSE ---
Pt pule oximetry O2 saturation 92% on room air., pt states, some shortness of breath. Expiratory wheezes auscultated throughout bilateral lungs and upper airway. Pt placed on 1 L of oxygen via nasal cannula. Pulse oximetry O2 sat. now 94%. Dr. Diop notified and recommended sitting with pt while she eats to remind of swallowing cues and precautions.
--- NOTE | 2021-10-05 15:29 | CM.DPC ---
DCP/continued: Reviewed chart. Per provider in AM rounds patient most likely will be ready to d/c within the next 24-48hrs. Today patient requiring more 02 and lungs not clear. Placed call to [facility] to notify them of above. LUGGAGE REPAIRER informed them that patient may be ready as early as tomorrow? [facility] to give message to their RN/Macarena. It is unknown if she will need to come assess patient in person prior to return. P: Pending. LUGGAGE REPAIRER requested that [facility] call CM team in AM to discuss next steps towards patient's return to [facility]. JUAN RAMON
--- NOTE | 2021-10-05 16:19 | PT.IIE ---
Current Diagnoses Pneumonia, unspecified organism (10/02/21) Surgical History (Last Reviewed 10/02/21 @ 01:43 by DONNA Morales) H/O left inguinal hernia repair Hx of tonsillectomy Medical History (Last Updated 10/02/21 @ 01:46 by DONNA Morales) Atherosclerosis Atrial fibrillation COPD (chronic obstructive pulmonary disease) Dementia Depression Hernia Hydrocephalus Low back pain Mild cognitive impairment Osteoporosis Parkinson disease Physical Therapy Inpatient Evaluation/Re-Eval M1 PT/OT-IP Prior Functional Status Start: 10/05/21 16:10 Freq: Status: Active Protocol: Document 10/05/21 16:11 BC (Rec: 10/05/21 16:19 [id number]) Medical Review Prior Functional Status Medical History Reviewed Yes Mobility and Gait Dtr present assisting with PLOF. States she was only completely stand pivot transfers with assist and is otherwise w/c bound. Activities of Daily Living and IADL's [facility]eds [facility]. Social History Household Members none Living Arrangements Assisted Living Home Environment High Toilet,Walk in Shower Home Equipment Manual Wheelchair,Grab Bars Near Toilet,Grab Bars In Shower Additional Social History Comment Pt resides at [facility] M2 PT-IP Current Condition Start: 10/05/21 16:10 Freq: Status: Active Protocol: Document 10/05/21 16:11 BC (Rec: 10/05/21 16:19 [id number]) Physical Therapy Current Condition Current Condition Evaluation Date 10/05/21 Treatment Diagnosis difficulty with ambulation; muscle weakness M3 PT-IP Subjective Start: 10/05/21 16:10 Freq: Status: Active Protocol: Document 10/05/21 16:11 BC (Rec: 10/05/21 16:19 [id number]) Subjective Physical Therapy Visit Type Type Initial Evaluation Visit Start Time 15:40 Visit Stop Time 16:10 Total Visit Minutes 28 Physical Therapy Visit Comments Patient Goals To get better M4 PT-IP Mobility and Gait Start: 10/05/21 16:10 Freq: Status: Active Protocol: Document 10/05/21 16:11 BC (Rec: 10/05/21 16:19 [id number]) PT-Bed Mobility Assessment Rolling Level of Assist Contact Guard Assistance Supine to Sit Supine to Sit Minimal Assistance Sit to Supine Sit to Supine Moderate Assistance Scooting Scooting to Edge of Bed Minimal Assistance PT-Transfer Assessment Sit to and From Stand Sit to and from Stand Minimal Assistance Equipment Transfer Assistive Device Gait Belt,Front Wheeled Walker Transfers Transfer Technique Stand Step Pivot Transfer Ability Level of Assist Contact Guard Assistance Comments Mobility Comments Lateral steps to head of bed - min to CGA and use of FWW Gait Assessment Comments Gait Comments Pt non ambulatory PLOF PT-Balance Assessment Sitting Balance and Reactions Static Sitting Balance Ability Good Dynamic Sitting Balance Ability Good Standing Balance and Reactions Static Standing Balance Ability Fair Dynamic Standing Balance Ability Fair Device Used FWW M5 PT-IP Objective Assessments Start: 10/05/21 16:10 Freq: Status: Active Protocol: Document 10/05/21 16:11 BC (Rec: 10/05/21 16:19 [id number]) Orientation Orientation/Cognition Level of Alertness Alert Orientation Name,Situation Safety Awareness Decreased Safety Awareness Gross Range of Motion Lower Extremity ROM Assessment Within Functional Limits Strength Lower Extremity Strength Assessment Bilaterally Impaired Comments Strength Comments BLE strength grossly 3+ to 4-/ 5 throughout Coordination Assessment Gross Coordination Gross Coordination WNL Sensation Assessment Sensation Gross Sensation WNL Muscle Tone Muscle Tone WNL Yes Other Assessments Other Other Assessments Visible skin tear to L anterior lower leg, with steri strips. M6 PT-IP Treatment Start: 10/05/21 16:10 Freq: Status: Active Protocol: Document 10/05/21 16:11 BC (Rec: 10/05/21 16:19 [id number]) Physical Therapy Treatment Education Education Provided Safety Other Treatments Other Treatment Performed Educated on PLB during activity and with recovery. Needs frequent verbal and visual cues. M7 PT-IP Assessment and Plan Start: 10/05/21 16:10 Freq: Status: Active Protocol: Document 10/05/21 16:11 BC (Rec: 10/05/21 16:19 [id number]) PT Summary Assessment and Plan Potential Rehabilitation Potential Good Status of Condition at Evaluation Stable Summary Assessment Summary Pt admitted from memory care facility due to pneumonia and COPD exacerbation. Pt is currently on 1 L of O2 and saturation levels at rest are 94-96%. Dtr present and reports her PLOF was limited to stand pivot transfers with walker to w/c with assist at memory care unit. Pt was able to tolerate similar mobilization today needing min to mod A for bed mobility and sit to stand transfers. Her O2 sat with taking several side steps dropped to 85-87% but quickly recovered with seated rest and vc's on PLB. Recommend 1-2 more IPPT visits to ensure she can transfer to w/c at PLOF of min A to CGA. D/C recommendation is to return to memory care unit with 24hr assist. Goals Bed Mobility Goal Contact Guard Assistance Transfer Goal Contact Guard Assistance,Front Wheeled Walker Days to Meet Goals 3 Frequency of Treatment Frequency Of Treatment Once a Day Treatment Plan Physical Therapy Treatment Plan Bed Mobility Training,Transfer Training,Gait Training, Therapeutic Exercise,Balance Retraining,Discharge Planning Precautions Other Precautions Monitor O2, stand pivot transfers only Recommendations To Nursing Amount of Assist Needed 1 Person Assist Discharge Recommendations Other Discharge Recommendations Return to memory care unit with 24/ support Transportation Needs at Discharge Private Vehicle,Wheelchair/ Cabulance
[2021-10-05] MEDS: MIRTAZAPINE 15 MG TABLET 30 MG PO (20:31)
--- NOTE | 2021-10-05 21:22 | PC.NURSE ---
Patient is alert but oriented only to self and knows she is in the hospital. Audible wheezing and auscultated throughout; on oxygen at 1L/min per NC with sat of 94%; on continuous oximetry. HRR with BP of 140/62; BP has been labile. Incontinent of B&B and had small, formed stool. Is able to turn herself in bed. Is nonambulatory. Denies pain. Bilateral calf SCD's applied. Fall risk score is high and bed alarm is activated.
[2021-10-05] MEDS: cefTRIAXone 1,000 MG in SODIUM CHLORIDE 0.9% 100 ML 200 MG IV (22:10)
[2021-10-05] MEDS: SODIUM CHLORIDE 0.9% 250 ML 21 ML IV (22:11)
[2021-10-06] VITALS (8 sets, daily range): BP systolic 106–152; BP diastolic 45–68; PULSE 63–93; RESP 18–24; TEMP 36.3–36.6; O2SAT 93–97
[2021-10-06] MEDS: methylPREDNISolone 125 MG/2 ML VIAL 40 MG IV ×2 (04:52→17:14)
[2021-10-06] MEDS: SODIUM CHLORIDE 0.9% FLUSH 10 ML IV ×4 (04:53→21:49)
[2021-10-06] MEDS: ALBUTEROL 2.5 MG/3 ML NEB (ADULT) INH (05:20)
[2021-10-06 06:31] LABS: Hemoglobin 11.2 g/dL (12.0-16.0); Mean Corpuscular Hemoglobin 28.8 PG (26-34); Mean Corpuscular Volume 87.5 fL (80-100); Platelet Count 399 X10^3/uL (150-400); Red Blood Cell Count 3.89 X10^6/uL (4.0-5.2); Red Cell Distribution Width 16.1 % (11.6-14.8); White Blood Cell Count 11.2 X10^3/uL (4.5-11.0)
[2021-10-06 06:40] LABS: Add Manual Diff / Slide Review YES
[2021-10-06 06:42] LABS: Blood Urea Nitrogen 28 mg/dL (7-17); Carbon Dioxide 30 mmol/L (22-32); Chloride 102 mmol/L (98-107); Estimated Glomerular Filt Rate > 60 mL/min (>60); Glucose 111 mg/dL (80-110); HEMOLYSIS < 15 (0-50); Potassium 4.3 mmol/L (3.4-5.1); Sodium 137 mmol/L (137-145)
[2021-10-06 07:12] LABS: Neutrophils Absolute Manual 9632 /uL (3000-5900); RBC Morphology Norm; Total Cells Counted 100
[2021-10-06] MEDS: BUDESONIDE 0.5 MG/2 ML NEB INH ×2 (07:41→19:31)
[2021-10-06] MEDS: ALBUTEROL/IPRATROPIUM 3 ML AMPUL INH ×4 (07:41→19:30)
--- NOTE | 2021-10-06 09:28 | CM.DPNOTE ---
Faxed clinicals per Natacha to [facility]. Debi Lamb CM Assist.
[2021-10-06] MEDS: PANTOPRAZOLE DR 40 MG TABLET PO (10:23)
[2021-10-06] MEDS: ENOXAPARIN 30 MG/0.3 ML SYRINGE SUBCUT (10:23)
[2021-10-06] MEDS: CITALOPRAM 10 MG TABLET 20 MG PO (10:23)
--- NOTE | 2021-10-06 11:28 | ST.IPDYTX ---
Visit Care Team Role Provider Type DONNA Mann Primary Care Provider Non-Staff Specialty: Medical Address: [address] [place] [address], [id number] Email: Milla Ma MD Emergency Provider Physician Referring Provider Specialty: Emergency Medicine Address: [address] [place] [address] Email: DONNA Morales Admit Provider Physician Attending Provider Specialty: Internal Medicine Address: [address] [place] [address] Email: [email or web address] BIOLOGICAL CHEMIST Dysphagia Treatment BIOLOGICAL CHEMIST Dysphagia Treatment Start: 10/04/21 11:50 Freq: Status: Active Protocol: Document 10/06/21 11:21 ZS (Rec: 10/06/21 11:28 ZS [id number]) Dysphagia Treatment Session Time Visit Start Time 10:30 Visit Stop Time 10:45 Total Visit Minutes 15 Visit Information Visit Number 1 Setting Assessment Location Acute Care Visit Type Note Type Treatment Note Next Note Type Next Note Type Treatment Note Patient Information Identification Type Name,ID Wristband Subjective Observations The pt was seated upright in bed eating morning meal when BIOLOGICAL CHEMIST arrived. NSG reported she woke up recently and was full of energy. Pt reported swallowing has improved since yesterday. She did not recall whether she has experienced fatigue while eating. Treatment Liquids Trialed Thin Solids Trialed Puree,Mechanical Soft Administration Type Tea Spoon,Straw,Self-Feeding Oral Strategies Upright at 90 degrees,Double Swallow Pharyngeal Strategies Sitting Upright (90 deg), Double Swallow,Small Bites and Sips Treatment Activities Observed pt as she ate her morning meal. Assessment Patient Response to Treatment Good Assessment of Improvement Pt exhibited improved swallow, despite minimal use of swallow safety strategies. When reminded of strategies, pt indicated she has been using them, but it is hard to remember. Pt exhibited no overt signs or symptoms of aspiration when drinking, despite multiple consecutive drinks through a straw cup and a single swallow following drink. Mastication was WNL with cream of wheat and eggs and minimal to no oral residue observed following PO trials. NSG reported concerns with aspiration at lunch and with medications sometimes. Will continue to monitor for signs/ symptoms of aspiration and for diet advancement as indicated . Recommend continue current diet of dysphagia mechanical and thin liquids at this time. Diet Recommendations Recommendations Continue Current Diet Liquids Order Thin Diet Order Dysphagia Mechanical Medication Recommendations As Tolerated,Whole in Carrier, Crushed in Carrier Additional Dietary Needs Single Sips Aspiration Precautions Recommended Precautions Upright at 90 Degrees,Small Bites/Sips,Double Swallow Treatment Plan Appropriate for Continued Therapy Yes Therapy Recommendations Continued monitoring of swallow safety/diet tolerance and diet advancement as appropriate. Dysphagia Goals Pt and family will participate in further education re: safe swallow strategies to implement once discharged, diet modifications Pt will participate in further evaluation to determine if diet advancement in needed.
--- NOTE | 2021-10-06 12:08 | CM.DPC ---
DCP/continued: Reviewed chart. Per provider, unsure if patient medically stable to return to [facility] today. DELIVERY STOCK CLERK asked K[facility]/Debi to fax clinical information to [facility] for review. In addition DELIVERY STOCK CLERK left with Macarena # [phone] informing her that d/c anticipated within the next 24hrs. If in person assessment needed would request that this gets done today. P: Return to [facility] when medically stable. DELIVERY STOCK CLERK requested they evaluate and clinical has been faxed. JUAN RAMON
--- NOTE | 2021-10-06 12:31 | CM.DPC ---
DCP/continued: Received return phone call from Macarena at [facility]. She does not anticipated any issue with patient returning. She is reviewing clinical now. Macarena reports that they do not provide transport unless patient's family unavailable. Therefore, at time of d/c family should be tried for transportation back to [facility]. [facility] to be notified when patient discharged. P: Return to [facility] when medically stable. JUAN RAMON
--- NOTE | 2021-10-06 13:41 | PT.IPTN ---
Current Diagnoses Pneumonia, unspecified organism (10/02/21) Physical Therapy Treatment Note M2 PT-IP Current Condition Start: 10/05/21 16:10 Freq: Status: Active Protocol: Document 10/05/21 16:11 BC (Rec: 10/05/21 16:19 [id number]) Physical Therapy Current Condition Current Condition Evaluation Date 10/05/21 Treatment Diagnosis difficulty with ambulation; muscle weakness M3 PT-IP Subjective Start: 10/05/21 16:10 Freq: Status: Active Protocol: Document 10/06/21 13:17 BC (Rec: 10/06/21 13:41 [id number]) Subjective Physical Therapy Visit Type Type Discharge Summary Visit Start Time 12:50 Visit Stop Time 13:10 Total Visit Minutes 16 Physical Therapy Visit Comments Patient Goals Pt agreeable to PT and getting OOB. M4 PT-IP Mobility and Gait Start: 10/05/21 16:10 Freq: Status: Active Protocol: Document 10/06/21 13:17 BC (Rec: 10/06/21 13:41 [id number]) PT-Bed Mobility Assessment Supine to Sit Supine to Sit Contact Guard Assistance, Minimal Assistance Scooting Scooting to Edge of Bed Minimal Assistance PT-Transfer Assessment Sit to and From Stand Sit to and from Stand Contact Guard Assistance Equipment Transfer Assistive Device Gait Belt,Front Wheeled Walker Transfers Transfer Destination Bed,Wheelchair Transfer Technique Stand Step Pivot Transfer Ability Level of Assist Minimal Assistance Comments Mobility Comments Pt transferring with CGA and FWW to manual w/c per PLOF. She is cooperative with bed mobility and transfers and is able to initiate movement needing just CGA to safely complete task. No LOB. Gait Assessment Comments Gait Comments Pt is non ambulatory at baseline. Stair Climbing Assessment Comments Stair Climbing Comments NA PT-Balance Assessment Sitting Balance and Reactions Static Sitting Balance Ability Good Dynamic Sitting Balance Ability Good Standing Balance and Reactions Static Standing Balance Ability Fair Dynamic Standing Balance Ability Fair Device Used FWW M5 PT-IP Objective Assessments Start: 10/05/21 16:10 Freq: Status: Active Protocol: Document 10/05/21 16:11 BC (Rec: 10/05/21 16:19 [id number]) Orientation Orientation/Cognition Level of Alertness Alert Orientation Name,Situation Safety Awareness Decreased Safety Awareness Gross Range of Motion Lower Extremity ROM Assessment Within Functional Limits Strength Lower Extremity Strength Assessment Bilaterally Impaired Comments Strength Comments BLE strength grossly 3+ to 4-/ 5 throughout Coordination Assessment Gross Coordination Gross Coordination WNL Sensation Assessment Sensation Gross Sensation WNL Muscle Tone Muscle Tone WNL Yes Other Assessments Other Other Assessments Visible skin tear to L anterior lower leg, with steri strips. M6 PT-IP Treatment Start: 10/05/21 16:10 Freq: Status: Active Protocol: Document 10/06/21 13:17 BC (Rec: 10/06/21 13:41 [id number]) Physical Therapy Treatment Education Education Provided Safety Other Treatments Other Treatment Performed Pursed lip breathing with activity and after activity. M7 PT-IP Assessment and Plan Start: 10/05/21 16:10 Freq: Status: Active Protocol: Document 10/06/21 13:17 BC (Rec: 10/06/21 13:41 [id number]) PT Summary Assessment and Plan Potential Rehabilitation Potential Good Status of Condition at Evaluation Stable Summary Progress Towards Goals Safe For Discharge,Goals Met Assessment Summary Pt agreeable to PT. Dtr present today. Reviewed that her PLOF was assist to transfer OOB to w/c with caregivers at memory care unit . She does not self propel the wheelchair at baseline. Pt able to transfer with min A today. She is on room air and saturating at 90% with activity. Pt and dtr agree to sit up with w/c locked while dtr assists with some ADL care . Nsng aware that Pt is up in w/c and to assist back to bed when ready. Pt appears to be at her baseline with transfers /mobility based on dtr report. No further skilled PT needs. Recommend d/c home to memory care unit when medically stable. Goals Bed Mobility Goal Contact Guard Assistance Transfer Goal Contact Guard Assistance,Front Wheeled Walker Days to Meet Goals 3 Frequency of Treatment Frequency Of Treatment Discharge Recommendations To Nursing Amount of Assist Needed 1 Person Assist Discharge Recommendations Other Discharge Recommendations Return to memory care unit [facility] 14/09 support Transportation Needs at Discharge Private Vehicle,Wheelchair/ Cabulance
--- NOTE | 2021-10-06 17:43 | P.PN_ITS ---
Subjective Subjective Date Patient Seen: 10/06/21 Time Patient Seen: 08:00 Interval history: She is short of breath but less so than previously. O2 was trialed off and she desat to the 80s. Exam Vital Signs (past 8 hours): - 10/06/21 11:20 10/06/21 11:53 10/06/21 17:06 Temperature 97.3 F L 97.7 F Pulse Rate 81 71 80 Respiratory Rate 20 18 18 Blood Pressure 149/68 H 113/49 L Pulse Oximetry 95 93 93 Oxygen Delivery Method Room Air Oxygen Flow Rate 1 1 Fraction of Inspired Oxygen 24 Oxygen Delivery Method Room Air Oxygen Flow Rate 1 Narrative Exam Narrative: GEN: no acute distress PULM: course breath sounds bilaterally, no wheezes CV: regular rate and rhythm ABD: Soft, nontender Objective Labs Result Diagrams: 10/06/21 05:39 10/06/21 05:39 Labs: Laboratory Results - last 24 hr 10/06/21 10/06/21 05:39 05:39 WBC 11.2 H RBC 3.89 L Hgb 11.2 L Hct 34.0 L MCV 87.5 MCH 28.8 MCHC 33.0 RDW 16.1 H Plt Count 399 Neut % (Auto) Not Reportable Lymph % (Auto) Not Reportable [place] % (Auto) Not Reportable Eos % (Auto) Not Reportable Baso % (Auto) Not Reportable Lymph # (Auto) Not Reportable [place] # (Auto) Not Reportable Baso # (Auto) Not Reportable Total Counted 100 Seg Neutrophils % 84.0 H Band Neutrophils % 2.0 L Lymphocytes % (Manual) 11.0 L Monocytes % (Manual) 3.0 Neutrophils # (Manual) 9632 H RBC Morphology Norm Sodium 137 Potassium 4.3 Chloride 102 Carbon Dioxide 30 BUN 28 H Creatinine 0.50 L Estimated GFR > 60 BUN/Creatinine Ratio 56.0 H Glucose 111 H Calcium 9.0 PFSH Medical History (Updated 10/02/21 @ 01:46 by DONNA Morales) Atherosclerosis Atrial fibrillation COPD (chronic obstructive pulmonary disease) Dementia Depression Hernia Hydrocephalus Low back pain Mild cognitive impairment Osteoporosis Parkinson disease Surgical History H/O left inguinal hernia repair Hx of tonsillectomy Family History Father Lung cancer Alcoholism Mother Hypertension Lung cancer Alcoholism Aspiration pneumonia Daughter Ovarian cancer Other Congestive heart failure Social History household members: none Smoking Status: Former smoker alcohol intake: former Assessment & Plan Assessment & Plan narrative: 1. MSSA bacteremia -2/2 bottle in one draw positive for MSSA, other negative -follow up cultures on next day also negative -high possibility of contaminant -continue ceftriaxone 2. Possible multifocal pneumonia She does have previous history of aspiration.? Continue Rocephin, azithromycin. Clinically, she is improving. -appreciate speech therapy recs 3. COPD exacerbation -switch iv steroids to oral -azithromycin completed 4. Depression Remains on mirtazapine at bedtime and citalopram.? 5. Bigeminy On ECG/exam on 10/03. Resolved. 6. Dementia Appears to be at baseline 7. Parkinson's disease Does not appear to be treated on an outpatient basis. Time Spent With Patient Critical Care time: I spent a total of [] minutes of critical care time on this patient's care today; this time is exclusive of procedural time. Quality VTE Deep Vein Thrombosis/Pulmonary Embolism Present on Admission: No
[2021-10-06] MEDS: MIRTAZAPINE 15 MG TABLET 30 MG PO (20:27)
[2021-10-06] MEDS: cefTRIAXone 1,000 MG in SODIUM CHLORIDE 0.9% 100 ML 200 MG IV (21:49)
--- NOTE | 2021-10-06 22:35 | PC.NURSE ---
Patient is alert and oriented to self, birthdate, place and situation although she has some delayed responses at time. Breath sounds with late expiratory wheezing. On oxygen at 1L/min per NC with sat of 93%; on continuous oximetry. HRR. Denies nausea. BT present and abdomen is soft. Is incontinent of B&B. Able to reposition herself in bed. Needs 2 assists + walker to get from bed to chair; per daughter patient is non ambulatory. Is wearing bilateral calf SCD's. Denies pain. Laceration to left lateral lower leg without signs of infection. Fall risk score is high and bed alarm is activated.
[2021-10-07 03:39] VITALS: BP 119/60; PULSE 69; RESP 18; TEMP 36.3; O2SAT 97
[2021-10-07 04:56] LABS: Hematocrit 29.8 % (36-46); Mean Corpuscular HGB Conc 33.5 % (30-36); Mean Corpuscular Hemoglobin 28.9 PG (26-34); Mean Corpuscular Volume 86.1 fL (80-100); Platelet Count 365 X10^3/uL (150-400); Red Blood Cell Count 3.46 X10^6/uL (4.0-5.2); Red Cell Distribution Width 15.7 % (11.6-14.8); White Blood Cell Count 12.3 X10^3/uL (4.5-11.0)
[2021-10-07 05:40] LABS: BUN Creatinine Ratio 46.6 (6-22); Blood Urea Nitrogen 27 mg/dL (7-17); Calcium 8.4 mg/dL (8.4-10.2); Carbon Dioxide 31 mmol/L (22-32); Chloride 102 mmol/L (98-107); Estimated Glomerular Filt Rate > 60 mL/min (>60); Glucose 108 mg/dL (80-110); HEMOLYSIS < 15 (0-50); Potassium 4.3 mmol/L (3.4-5.1); Sodium 138 mmol/L (137-145)
[2021-10-07] MEDS: ALBUTEROL/IPRATROPIUM 3 ML AMPUL INH ×2 (07:53→11:43)
[2021-10-07] MEDS: BUDESONIDE 0.5 MG/2 ML NEB INH (07:53)
[2021-10-07 07:54] VITALS: O2SAT 94
[2021-10-07] MEDS: CITALOPRAM 10 MG TABLET 20 MG PO (08:48)
[2021-10-07] MEDS: predniSONE 20 MG TABLET 40 MG PO (08:49)
[2021-10-07] MEDS: FUROSEMIDE 20 MG/2 ML VIAL IV (08:49)
[2021-10-07] MEDS: PANTOPRAZOLE DR 40 MG TABLET PO (08:49)
[2021-10-07] MEDS: SODIUM CHLORIDE 0.9% FLUSH 10 ML IV (08:49)
[2021-10-07] MEDS: ENOXAPARIN 30 MG/0.3 ML SYRINGE SUBCUT (08:49)
[2021-10-07 09:10] VITALS: BP 126/80; PULSE 94; RESP 18; TEMP 36.6; O2SAT 90
[2021-10-07 11:43] VITALS: O2SAT 91
[2021-10-07 12:00] VITALS: BP 104/52; PULSE 80; RESP 18; TEMP 36.5; O2SAT 90
[2021-10-07 14:12] VITALS: BP 104/52; PULSE 80; RESP 18; TEMP 36.5; O2SAT 90
--- NOTE | 2021-10-07 14:14 | CM.DPC ---
DCP Discharge [facility] care Per MD, pt was given additional lasiks this morning to determine if pt oxygen can be dc'd and tolerate room air. Pt's oxygen was removed this morning and was able to tolerate room air and stable for discharge back to [facility] today. SANTI met bedside with pt and Dtr Chayito this morning and Dtr was aware that pt may d/c today and Dtr can provide transport only this AM but facility can transport if needed. Dtr does not anticipate any further needs at this time if pt is stable for d/c. SANTI called [facility] and spoke to YOANA Fiore and updated on pt d/c today and request for transport and they will transport between [phone] and provided RN report number to call. SW reminded MD to sign med list and print any needed new scripts. SANTI updated RN who will kindly call report now and determine if updated COVID swab needed. SANTI called Dtr [facility] and updated on d/c today and tentative timeframe for [facility] to transport and Dtr agreeable and appreciative. Plan: Patient to d/c back to [facility] via facility van today between [phone]. MILLICENT Loya
--- NOTE | 2021-10-07 15:02 | PC.NURSE ---
Discharge Note Patient A&O to baseline, VSS, RA, no complaints of pain/discomfort. Patient agreeable to discharge plan. Discharge instructions reviewed with patient, all questions/concerns addressed. PIV/TELE discontinued. Patient taken down via wheelchair by facility staff.
--- NOTE | 2021-10-07 17:52 | PM.DS.1 ---
History of Present Illness History of Present Illness Date Patient Seen: 10/02/21 Time Patient Seen: 01:38 Chief complaint: Low O2 Sat, found to have bilateral pneumonia Narrative: Per admitting provider: Michelle Garcia a 80-year-old female resident of [facility] with a history of COPD and is a former smoker was brought into the emergency department due to low oxygen saturation in the 80s. She was administered a treatment and apparently she did not improve, and was ambulanced to [facility]. Patient is severely demented and hard of hearing, daughter?Chayito provides much of the history. Patient did tell me she was feeling bad and short of breath but could not tell me for how long or whether she had a cough. Denies chest pain, nausea or vomiting, abdominal pain, dysurea, diarrhea or constipation. Chest xray reported ?Subtle bilateral pulmonary opacities could represent multifocal infection..., large hiatal hernia. Patient is currently febrile at 100.5, blood pressure 110/56, heart rate 79, respiratory rate 28, oxygen saturation of 97% on room air, she weighs 41 kg with a BMI of 18.8. She does have a elevated white count at 17.4, with a left shift of 15,600 neutrophils glucose is 116, proBNP is 493, troponin is normal, she has trace protein and glucose in her urine, she is negative for UTI, viral and COVID-19 PCRs are all negative Family history of smoking, alcoholism and early deaths of both parents as outlined below. Discharge Providers Provider Date of admission: 10/02/21 00:37 Discharge Date: 10/07/21 Primary care physician: DONNA Mann Consults: 10/02/21 00:48 Consult to Respiratory Therapy Evaluate & Treat Comment: Hypoxia, bilateral PNA Physician Instructions: Evaluate and treat 10/02/21 01:31 Consult to Dietitian, Adult Routine Comment: Reason For Exam: MNA score = 5 10/02/21 20:39 Consult to Speech Therapy Evaluate & Treat Comment: concern for aspiration pneumonia Physician Instructions: Evaluate and treat 10/05/21 12:14 Consult to Physical Therapy Evaluate & Treat Comment: Physician Instructions: Evaluate and Treat Discharge provider: Sameer Lindo MD Summary Hospital Course Discharge Diagnosis: 1. Possible pneumonia 2. Positive blood culture, likely contaminant 3. COPD exacerbation 4. Acute hypoxemic respiratory failure due to above 5. Depression 6. Dementia 7. Parkinsons Hospital Course: Ms. Emerson was admitted with respiratory failure with O2 sats in the 80s and requiring oxygen. She was found to have a questionable pneumonia on xray and was started on IV antibiotics. She had episodes aspiration, it was unclear if this was the cause. She did have a COPD exacerbation and was treated with steroids. These interventions lead to improvement of her respiratory status. On day of discharge she was off oxygen and her breathing felt improved. Of note she did have one positive blood culture with MSSA. This was in two bottles off one draw. The other draw the same day was negative. Follow up blood cultures the following day were also negative. This was thought to be a contaminant. She completed a course of antibiotics in the hospital and was discharged with three more days of steroids. Exam Vital Signs (past 8 hours): - 10/07/21 11:43 10/07/21 12:00 10/07/21 14:12 Temperature 97.7 F 97.7 F Pulse Rate 80 80 Respiratory Rate 18 18 Blood Pressure 104/52 L 104/52 L Pulse Oximetry 91 90 L 90 L Oxygen Delivery Method Room Air Fraction of Inspired Oxygen 24 Oxygen Delivery Method Room Air Oxygen Flow Rate 1 Narrative Exam Narrative: GEN: no acute distress PULM: course breath sounds bilaterally, no wheezes CV: regular rate and rhythm ABD: Soft, nontender Objective Labs Result Diagrams: 10/07/21 04:35 10/07/21 04:35 Labs: Laboratory Results - last 24 hr 10/07/21 10/07/21 04:35 04:35 WBC 12.3 H RBC 3.46 L Hgb 10.0 L Hct 29.8 L MCV 86.1 MCH 28.9 MCHC 33.5 RDW 15.7 H Plt Count 365 Sodium 138 Potassium 4.3 Chloride 102 Carbon Dioxide 31 BUN 27 H Creatinine 0.58 Estimated GFR > 60 BUN/Creatinine Ratio 46.6 H Glucose 108 Calcium 8.4 PFSH Medical History (Updated 10/02/21 @ 01:46 by DONNA Morales) Atherosclerosis Atrial fibrillation COPD (chronic obstructive pulmonary disease) Dementia Depression Hernia Hydrocephalus Low back pain Mild cognitive impairment Osteoporosis Parkinson disease Surgical History H/O left inguinal hernia repair Hx of tonsillectomy Family History Father Lung cancer Alcoholism Mother Hypertension Lung cancer Alcoholism Aspiration pneumonia Daughter Ovarian cancer Other Congestive heart failure Social History household members: none Smoking Status: Former smoker alcohol intake: former Discharge Plan Discharge Plan Patient Disposition: Home Provider Discharge Comment: 1. Complete steroids for 3 more days 2. Continue inhalers 3. Monitor for aspiration risk Discharge orders & Medications Prescriptions: New prednisone 50 mg tablet 50 mg PO DAILY Qty: 3 0RF Continued multivitamin Tablet 1 tab PO DAILY albuterol sulfate [Ventolin HFA] 90 mcg/actuation Hfa Aerosol Inhaler 2 puff inhalation Q4HR Rx Instructions: rescue inhaler citalopram 10 mg Tablet 20 mg PO DAILY acetaminophen 500 mg Tablet 500 mg PO BID mirtazapine 30 mg Tablet 30 mg PO BEDTIME fluticasone propion-salmeterol [Wixela Inhub] 500-50 mcg/dose Blister With Device 1 inh INHALATION BID bisacodyl 5 mg Tablet 10 mg PO DAILY PRN (Reason: Constipation) [id number] C-Mn [Glucosamine Chondroitin MaxStr] 500-400 mg Capsule 2 cap PO DAILY omeprazole magnesium [Prilosec OTC] 20 mg tablet,delayed release (DR/EC) 40 mg PO DAILY Follow up/Referrals: Mayela Wade ARNP [Primary Care Provider] - Diet/Activity/Treatments Diet: Regular Discharge Data Primary Care Provider: Mayela Wade Quality VTE Deep Vein Thrombosis/Pulmonary Embolism Present on Admission: No
== END 2021-10-07 15:00 | disposition home or self-care (01) | DRG 189 ==
LOC: ED 10-02 00:25 → AC 10-02 00:38
PROVIDERS: Family Medicine; Internal Medicine; Admitting Provider Nurse Practitioner Family; Emergency Provider Emergency Medicine; PCP Nurse Practitioner Family; Referring Provider Emergency Medicine; Visit Provider Nurse Practitioner Family
DX: J96.01 Acute respiratory failure with hypoxia (principal); E43 Unspecified severe protein-calorie malnutrition; J18.9 Pneumonia, unspecified organism; J44.1 Chronic obstructive pulmonary disease with (acute) exacerbation; Z68.1 Body mass index [BMI] 19.9 or less, adult; I49.8 Other specified cardiac arrhythmias; K21.9 Gastro-esophageal reflux disease without esophagitis; F32.A Depression, unspecified; R73.9 Hyperglycemia, unspecified; T38.0X5A Adverse effect of glucocorticoids and synthetic analogues, initial encounter; G20 Parkinson's disease; F02.80 Dementia in other diseases classified elsewhere, unspecified severity, without behavioral disturbance, psychotic disturbance, mood disturbance, and anxiety; Z87.891 Personal history of nicotine dependence; Z66 Do not resuscitate; Z20.822 Contact with and (suspected) exposure to COVID-19
CPT/HCPCS: 36415; 71045; 74177; 80048; 80053; 81001; 83605; 83735; 83880; 84484; 85007; 85025; 85027; 87040; 87077; 87150; 87186; 87633; 92526; 92610; 93005; 93010; 94640; 94760; 94762; 96365; 96367; 97161; 97530; 99284; J0696; J1650; J1940; J2930; J7613; Q9967

== ENCOUNTER 2021-10-09 11:19 | Emergency (ER) | payer OTHER, SELFPAY ==
[2021-04-10 01:45] VITALS: PULSE 101; RESP 36; O2SAT 97
[2021-10-02 01:08] VITALS: BMI 18.8
[2021-10-09] VITALS (20 sets, daily range): BP systolic 104–140; BP diastolic 52–77; PULSE 65–89; RESP 18–34; TEMP 36.8; O2SAT 90–97; BMI 21.4
[2021-10-09 11:39] LABS: Hematocrit 38.4 % (36-46); Hemoglobin 12.8 g/dL (12.0-16.0); Mean Corpuscular HGB Conc 33.3 % (30-36); Mean Corpuscular Hemoglobin 29.3 PG (26-34); Mean Corpuscular Volume 87.8 fL (80-100); Platelet Count 399 X10^3/uL (150-400); Red Blood Cell Count 4.38 X10^6/uL (4.0-5.2); Red Cell Distribution Width 15.8 % (11.6-14.8); White Blood Cell Count 11.2 X10^3/uL (4.5-11.0)
[2021-10-09 11:40] LABS: Add Manual Diff / Slide Review YES
[2021-10-09 11:46] LABS: Alanine Aminotransferase 34 IU/L (<35); Albumin 3.7 g/dL (3.5-5.0); Albumin Globulin Ratio 1.3 (1.0-2.8); Alkaline Phosphatase 47 U/L (38-126); Aspartate Aminotransferase 33 IU/L (14-36); BUN Creatinine Ratio 31.2 (6-22); Bilirubin Total 0.6 mg/dL (0.2-1.3); Blood Urea Nitrogen 24 mg/dL (7-17); Calcium 8.4 mg/dL (8.4-10.2); Carbon Dioxide 28 mmol/L (22-32); Chloride 99 mmol/L (98-107); Estimated Glomerular Filt Rate > 60 mL/min (>60); Globulin 2.9 g/dL (1.7-4.1); Glucose 135 mg/dL (80-110); HEMOLYSIS 81 (0-50); Lipase 82 U/L (23-300); Sodium 135 mmol/L (137-145); Total Protein 6.6 g/dL (6.3-8.2)
[2021-10-09 11:47] LABS: Potassium 4.5 mmol/L (3.4-5.1)
[2021-10-09 12:08] LABS: Neutrophils Absolute Manual 8288 /uL (3000-5900); Total Cells Counted 100
[2021-10-09 12:09] LABS: RBC Morphology Normal Morphology
[2021-10-09] MEDS: MORPHINE 2 MG/ML INJ IV (12:15)
[2021-10-09] MEDS: ONDANSETRON 4 MG/2 ML INJ IV (12:15)
[2021-10-09 12:59] LABS: COVID19 -Nasal RAPID Negative (Negative)
--- NOTE | 2021-10-09 13:32 | ED_ITS ---
HPI - Abdominal Pain General Chief Complaint: Abdominal Pain Stated Complaint: abd pain Time Seen by Provider: 10/09/21 12:03 Source: patient and EMS Mode of arrival: EMS History of Present Illness HPI narrative: Patient is a 80-year-old female resident of [facility], history of COPD former smoker admitted October 01 through the with pneumonia and hypoxic versus COPD exacerbation. She did have 1 positive blood culture with MSSA a thought to be a contaminant. Patient presents today with abdominal pain in the suprapubic area. She denies any nausea or vomiting. She still is requiring about 2 L of oxygen. She overall is a historian but able to answer questions. I also spoke with the daughter Chayito on the phone. Able to provide some history but most history was obtained from chart Related Data Home Medications Medication Instructions Recorded Confirmed albuterol sulfate 90 mcg/actuation 2 puff inhalation Q4HR 11/07/18 10/01/21 aerosol inhaler (Ventolin HFA) multivitamin 1 tab PO DAILY 11/07/18 10/01/21 acetaminophen 500 mg tablet 500 mg PO BID 04/10/21 10/01/21 bisacodyl 5 mg tablet 10 mg PO DAILY PRN Constipation 04/10/21 10/01/21 citalopram 10 mg tablet 20 mg PO DAILY 04/10/21 10/01/21 fluticasone 500 mcg-salmeterol 50 1 inh inhalation BID 04/10/21 10/01/21 mcg/dose blistr powdr for inhalation (Wixela Inhub) [id number] C-Mn 500 2 cap PO DAILY 04/10/21 10/01/21 mg-400 mg capsule (Glucosamine Chondroitin Maximum Strength) mirtazapine 30 mg tablet 30 mg PO BEDTIME 04/10/21 10/01/21 omeprazole magnesium 20 mg 40 mg PO DAILY 04/10/21 10/01/21 tablet,delayed release (Prilosec OTC) Previous Rx's Medication Instructions Recorded prednisone 50 mg tablet 50 mg PO DAILY #3 tabs 10/07/21 Allergies Allergy/AdvReac Type Severity Reaction Status Date / Time oxybutynin Allergy Unknown Verified 08/05/20 09:22 Review of Systems Review of Systems Narrative: See HPI Patient History Medical History (Updated 10/09/21 @ 16:02 by Analisa Botnick, DO) Atherosclerosis Atrial fibrillation COPD (chronic obstructive pulmonary disease) Dementia Depression Hernia Hydrocephalus Low back pain Mild cognitive impairment Osteoporosis Parkinson disease Surgical History H/O left inguinal hernia repair Hx of tonsillectomy Family History Father Lung cancer Alcoholism Mother Hypertension Lung cancer Alcoholism Aspiration pneumonia Daughter Ovarian cancer Other Congestive heart failure Social History household members: none Smoking Status: Former smoker alcohol intake: former Smoking Status: Former smoker alcohol intake frequency: 0-2 drinks per day Alcohol type: wine Substance Use Type: does not use Exam Initial Vital Signs Initial Vital Signs: Vital Signs Pulse Rate 72 10/09/21 11:17 Pulse Oximetry 90 L 10/09/21 11:17 GENERAL: Alert pleasantly confused 80-year-old female and in no acute distress. HEENT: Head atraumatic,EOMI, pupils reactive, face symmetric, moist mucous membranes CARDIOVASCULAR: Regular rate and rhythm without murmurs, rubs or gallops. RESPIRATORY: Breath sounds equal bilaterally, no wheezes rales or rhonchi. ABDOMEN: Soft, mild suprapubic pain. EXTREMITIES: Normal range of motion, no clubbing or edema. Neurovascularly intact NEUROLOGICAL: Alert and oriented x4.Normal gait and speech. SKIN: Warm, dry, no laceration, no petechiae, no rashes or lesions. Course Orders Ordered: Discontinued Medications Mineral Oil (Mineral Oil 1 Each Enema) 1 each IN NOW ONE Stop: 10/09/21 15:53 Last Admin: 10/09/21 15:57 Dose: Not Given Documented By: BALTA Morphine Sulfate (Morphine 2 Mg/Ml Inj) 2 mg IV NOW ONE Stop: 10/09/21 12:07 Last Admin: 10/09/21 12:15 Dose: 2 mg Documented By: GABRIEL Ondansetron HCl (Ondansetron 4 Mg/2 Ml Inj) 4 mg IV NOW ONE Stop: 10/09/21 12:10 Last Admin: 10/09/21 12:15 Dose: 4 mg Documented By: GABRIEL Vital Signs Vital signs: Vital Signs - 8 hr 10/09/21 11:20 10/09/21 11:17 10/09/21 11:18 Temperature 98.3 F Pulse Rate 80 72 71 Respiratory Rate 18 Blood Pressure 114/58 L Pulse Oximetry 91 90 L 91 Oxygen Delivery Method Room Air Oxygen Flow Rate 10/09/21 11:18 10/09/21 11:30 10/09/21 11:30 Temperature Pulse Rate 67 Respiratory Rate 22 Blood Pressure 114/58 L 114/56 L Pulse Oximetry 96 Oxygen Delivery Method Nasal Cannula Oxygen Flow Rate 2 MDM - Abdominal Pain Lab Data Result diagrams: 10/09/21 11:16 10/09/21 11:16 Labs: Lab Results 10/09/21 10/09/21 10/09/21 Range/Units 11:16 11:16 11:16 WBC 11.2 H (4.5-11.0) X10^3/uL RBC 4.38 (4.0-5.2) X10^6/uL Hgb 12.8 (12.0-16.0) g/dL Hct 38.4 (36-46) % MCV 87.8 (80-100) fL MCH 29.3 (26-34) PG MCHC 33.3 (30-36) % RDW 15.8 H (11.6-14.8) % Plt Count 399 (150-400) X10^3/uL Neut % (Auto) Not Reportable Lymph % (Auto) Not Reportable [place] % (Auto) Not Reportable Eos % (Auto) Not Reportable Baso % (Auto) Not Reportable Lymph # (Auto) Not Reportable [place] # (Auto) Not Reportable Baso # (Auto) Not Reportable Total Counted 100 Seg Neutrophils % 73.0 H (38-70) % Band Neutrophils % 1.0 L (3-7) % Lymphocytes % (Manual) 18.0 L (25-45) % Atypical Lymphs % 2.0 H ( - 0) % Monocytes % (Manual) 5.0 (2-11) % Eosinophils % (Manual) 1.0 L (2-4) % Neutrophils # (Manual) 8288 H (6728-8496) /uL RBC Morphology Normal morphology Sodium 135 L (137-145) mmol/L Potassium 4.5 (3.4-5.1) mmol/L Chloride 99 (98-107) mmol/L Carbon Dioxide 28 (22-32) mmol/L BUN 24 H (7-17) mg/dL Creatinine 0.77 (0.52-1.04) mg/dL Estimated GFR > 60 (>60) mL/min BUN/Creatinine Ratio 31.2 H (6-22) Glucose 135 H (80-110) mg/dL Calcium 8.4 (8.4-10.2) mg/dL Total Bilirubin 0.6 (0.2-1.3) mg/dL AST 33 (14-36) IU/L ALT 34 (<35) IU/L Alkaline Phosphatase 47 (38-126) U/L NT-Pro-B Natriuret Pep 535 H (<450) pg/mL Total Protein 6.6 (6.3-8.2) g/dL Albumin 3.7 (3.5-5.0) g/dL Globulin 2.9 (1.7-4.1) g/dL Albumin/Globulin Ratio 1.3 (1.0-2.8) Lipase 82 (23-300) U/L Urine Color Urine Appearance Urine pH (4.5-8.0) Ur Specific [place] (1.000-1.035) Urine Protein (Negative) Urine Glucose (UA) (Negative) g/dL Urine Ketones (NEGATIVE) Urine Occult Blood (Negative) Urine Nitrate (Negative) Urine Bilirubin (NEGATIVE) Urine Urobilinogen (0.2) E.U./dL Ur Leukocyte Esterase (NEGATIVE) Urine RBC (0-5/HPF) Urine WBC (0-5/HPF) Ur Squamous Epith Cells (0-5/HPF) Urine Bacteria (None) Ur Culture Indicated? SARS-CoV-2 (PCR) (Negative) 10/09/21 10/09/21 Range/Units 11:41 13:35 WBC (4.5-11.0) X10^3/uL RBC (4.0-5.2) X10^6/uL Hgb (12.0-16.0) g/dL Hct (36-46) % MCV (80-100) fL MCH (26-34) PG MCHC (30-36) % RDW (11.6-14.8) % Plt Count (150-400) X10^3/uL Neut % (Auto) Lymph % (Auto) [place] % (Auto) Eos % (Auto) Baso % (Auto) Lymph # (Auto) [place] # (Auto) Baso # (Auto) Total Counted Seg Neutrophils % (38-70) % Band Neutrophils % (3-7) % Lymphocytes % (Manual) (25-45) % Atypical Lymphs % ( - 0) % Monocytes % (Manual) (2-11) % Eosinophils % (Manual) (2-4) % Neutrophils # (Manual) (1333-4032) /uL RBC Morphology Sodium (137-145) mmol/L Potassium (3.4-5.1) mmol/L Chloride (98-107) mmol/L Carbon Dioxide (22-32) mmol/L BUN (7-17) mg/dL Creatinine (0.52-1.04) mg/dL Estimated GFR (>60) mL/min BUN/Creatinine Ratio (6-22) Glucose (80-110) mg/dL Calcium (8.4-10.2) mg/dL Total Bilirubin (0.2-1.3) mg/dL AST (14-36) IU/L ALT (<35) IU/L Alkaline Phosphatase (38-126) U/L NT-Pro-B Natriuret Pep (<450) pg/mL Total Protein (6.3-8.2) g/dL Albumin (3.5-5.0) g/dL Globulin (1.7-4.1) g/dL Albumin/Globulin Ratio (1.0-2.8) Lipase (23-300) U/L Urine Color Yellow Urine Appearance Clear Urine pH 8.0 (4.5-8.0) Ur Specific [place] 1.015 (1.000-1.035) Urine Protein Negative (Negative) Urine Glucose (UA) Negative (Negative) g/dL Urine Ketones Negative (NEGATIVE) Urine Occult Blood Negative (Negative) Urine Nitrate Negative (Negative) Urine Bilirubin Negative (NEGATIVE) Urine Urobilinogen 0.2 (0.2) E.U./dL Ur Leukocyte Esterase Negative (NEGATIVE) Urine RBC None seen (0-5/HPF) Urine WBC 0-1/hpf (0-5/HPF) Ur Squamous Epith Cells 0-1 /hpf (0-5/HPF) Urine Bacteria Few (2-10) H (None) Ur Culture Indicated? Cult not indicated SARS-CoV-2 (PCR) Negative (Negative) Imaging Data CT scan - abdomen/pelvis: Radiologist's Impression: CT Scan Report Signed Patient: Michelle Emerson MR#: [id number] : 1940 Acct:[id number] Age/Sex: 80 / F Date of Service: 10/09/21 Loc: ED Accession Number: [id number] ?? Procedure: CT abdomen pelvis w con Ordering Provider: Analisa Short D.O. PROCEDURE:? CT ABDOMEN PELVIS W CON ? INDICATIONS:? ab pain ? TECHNIQUE:? After the administration of intravenous contrast, axial sections acquired from the lung bases to the pubic symphysis.? Coronal and sagittal reformats were performed.? For radiation dose reduction, the following was used:? automated exposure control, adjustment of mA and/or kV according to patient size.? ? COMPARISON:? [facility], CT, CT ABDOMEN PELVIS W CON, 10/01/2021, 22:17. ? FINDINGS:? Image quality:? Adequate.? ? Lung bases:? Small bilateral pleural effusions, left larger than right.? Emphysema. ? ABDOMEN: Liver:? Unremarkable.? ? Gallbladder:? No radiopaque gallstones visualized.? ? Biliary ducts:? Unremarkable.? ? Pancreas:? Unremarkable.? ? Spleen:? No focal lesion is visualized. Adrenal Glands:? Unremarkable.? ? Kidneys and Ureters:? No hydronephrosis. ? Stomach and Bowel:? Large paraesophageal hernia partially imaged.? No evidence of mechanical small bowel obstruction.? A large rectal stool ball is present, approximately 8 cm transverse. Peritoneum:? No free air.? Small amount of nonspecific pelvic free fluid present. ? Ventral Wall: ? No hernias.? Abdominal Nodes:? No retroperitoneal or mesenteric adenopathy by size criteria.? Vessels:? Atherosclerosis without abdominal aortic aneurysm. ? PELVIS: Pelvic Organs:? Uterine calcifications likely related to fibroids and vascular calcifications. Bladder:? Unremarkable.? ? Pelvic Nodes: No enlarged lymph nodes.? Miscellaneous: No hernias are seen. ? ? ? Bones:? Multilevel degenerative change of the visualized spine.? Right convexity curvature of the lumbar spine. ? ? IMPRESSION: 1. A large rectal stool ball is present, which places the patient at risk for stercoral colitis.? A large amount of stool is present in the upstream rectum/sigmoid colon. 2. No evidence of mechanical small bowel obstruction. 3. Partially imaged paraesophageal hernia present as before. 4. Small bilateral pleural effusions, left larger than right.? ? ? Dictated by: Ziyad Verma M.D. on 10/09/2021 at 15:11 ? ? CT scan - chest: Radiologist's Impression: Signed Patient: Michelle Emerson MR#: [id number] : 1940 Acct:[id number] Age/Sex: 80 / F Date of Service: 10/09/21 Loc: ED Accession Number: [id number] ?? Procedure: CT angio chest PE protocol Ordering Provider: Analisa Short D.O. PROCEDURE:? CT ANGIO CHEST PE PROTOCOL ? INDICATIONS:? hypoxia recent admission ? TECHNIQUE:? After the administration of intravenous contrast, 2 mm thick sections acquired from the pulmonary apices to the posterior costophrenic angles.? 3-dimensional maximum intensity projection (MIP) coronal and sagittal reformats were then acquired through the thorax.? For radiation dose reduction, the following was used:? automated exposure control, adjustment of mA and/or kV according to patient size.? ? COMPARISON:? [facility], CT, CT ABDOMEN PELVIS W CON, 10/01/2021, 22:17. ? FINDINGS:? Image quality:? Excellent.? ? Pulmonary arteries:? Pulmonary arteries are normal in size, and demonstrate no intraluminal filling defects to suggest central pulmonary embolism.? ? Lungs and pleura:? There is moderate centrilobular emphysema with an apical predominance. ?A 2.1 cm in diameter centrally cavitary mass with spiculated margins is present within the lateral aspect of the left lower lobe.? A calcified granuloma is present within the inferior right upper lobe.? There is a small low-density left pleural effusion.? This is increased in size from the study dated October 01, 2021.? There is a new trace right pleural effusion as well. ? Mediastinum:? Heart size is normal, without pericardial effusion.? No mediastinal or hilar adenopathy.? Thoracic aorta is normal in caliber and enhancement.? Dense atheromatous calcifications are present within the aortic arch.? Esophagus is normal in caliber.? There is a large hiatal hernia. ? Bones and chest wall:? No suspicious bony lesions.? Ribs and thoracic spine appear intact throughout.? A subcentimeter low-density cystic lesion is present within the left thyroid.? The right thyroid gland is unremarkable.? No axillary or suprac lavicular adenopathy.? ? Abdomen:? Visualized upper abdominal solid organs appear normal in the early arterial phase of enhancement.? ? IMPRESSION:? ? 1. No acute pulmonary embolus. ? 2. Dense aortic atherosclerosis. ? 3. Large hiatal hernia. ? 4. Spiculated mass with central cavitation in the left lower lobe suspicious for neoplasm or necrotic pneumonia. ? 5. Increased size of the left pleural effusion and new trace right pleural effusion. ? Dictated by: Rufina Perry M.D. on 10/09/2021 at 14:46 ? ? ECG Data Interpretation: Normal sinus rhythm rate 67 IN interval 166 QRS is [address] changes or T-wave inversions similar to previous EKG actually prior EKG showed multiple PVCs this is improved. MDM Narrative Medical decision making narrative: The patient is found have a large rectal impaction. She had a bowel movement here in the ED without any kind of assistance. Abdominal pain has now resolved. She still requiring 1-[address] for pulmonary embolism and recent hospitalization is negative. No sign of infection. CT chest does show a spiculated 2.1 cm area concerning for cancer. I updated the daughter who states that she was a heavy smoker and heavy drinker. I also spoke with PCP Mayela clarke about this mass and encouraged close outpatient follow-up and possible biopsy. She agreed and understood. As well as daughter. Patient overall appears well she is not in any pain. She had a bowel movement her abdominal pa in that she is here for is now better. Discharge Plan Departure Patient Disposition: Home Clinical Impression: Constipation, Lung mass Instructions: DI for Constipation Activity Restrictions/Additional Instructions: *You have been diagnosed with constipation *What to do: At this time blood work is overall reassuring. You were found to be constipated. There is also an area 2.1 cm in her left lung that is concerning for possible complication of pneumonia versus cancer. Recommend outpatient follow-up possible biopsy and repeat CT. *Continue to take medications as directed *Follow up with your primary care provider in 2-3 days or call [phone] *Return to ER if you should have increasing shortness of breath pain fever confusion or any new, worsening or concerning symptoms Prescriptions: No Action multivitamin Tablet 1 tab PO DAILY albuterol sulfate [Ventolin HFA] 90 mcg/actuation Hfa Aerosol Inhaler 2 puff inhalation Q4HR Rx Instructions: rescue inhaler citalopram 10 mg Tablet 20 mg PO DAILY acetaminophen 500 mg Tablet 500 mg PO BID mirtazapine 30 mg Tablet 30 mg PO BEDTIME fluticasone propion-salmeterol [Wixela Inhub] 500-50 mcg/dose Blister With Device 1 inh INHALATION BID bisacodyl 5 mg Tablet 10 mg PO DAILY PRN (Reason: Constipation) [id number] C-Mn [Glucosamine Chondroitin MaxStr] 500-400 mg Capsule 2 cap PO DAILY omeprazole magnesium [Prilosec OTC] 20 mg tablet,delayed release (DR/EC) 40 mg PO DAILY prednisone 50 mg tablet 50 mg PO DAILY Qty: 3 0RF Referrals: Mayela Wade ARNP [Primary Care Provider] - Visit Report Forms: Patient Portal/API
--- NOTE | 2021-10-09 13:57 | DI.CT.S_ITS ---
PROCEDURE: CT ABDOMEN PELVIS W CON INDICATIONS: ab pain TECHNIQUE: After the administration of intravenous contrast, axial sections acquired from the lung bases to the pubic symphysis. Coronal and sagittal reformats were performed. For radiation dose reduction, the following was used: automated exposure control, adjustment of mA and/or kV according to patient size. COMPARISON: [facility], CT, CT ABDOMEN PELVIS W CON, 10/01/2021, 22:17. FINDINGS: Image quality: Adequate. Lung bases: Small bilateral pleural effusions, left larger than right. Emphysema. ABDOMEN: Liver: Unremarkable. Gallbladder: No radiopaque gallstones visualized. Biliary ducts: Unremarkable. Pancreas: Unremarkable. Spleen: No focal lesion is visualized. Adrenal Glands: Unremarkable. Kidneys and Ureters: No hydronephrosis. Stomach and Bowel: Large paraesophageal hernia partially imaged. No evidence of mechanical small bowel obstruction. A large rectal stool ball is present, approximately 8 cm transverse. Peritoneum: No free air. Small amount of nonspecific pelvic free fluid present. Ventral Wall: No hernias. Abdominal Nodes: No retroperitoneal or mesenteric adenopathy by size criteria. Vessels: Atherosclerosis without abdominal aortic aneurysm. PELVIS: Pelvic Organs: Uterine calcifications likely related to fibroids and vascular calcifications. Bladder: Unremarkable. Pelvic Nodes: No enlarged lymph nodes. Miscellaneous: No hernias are seen. Bones: Multilevel degenerative change of the visualized spine. Right convexity curvature of the lumbar spine. IMPRESSION: 1. A large rectal stool ball is present, which places the patient at risk for stercoral colitis. A large amount of stool is present in the upstream rectum/sigmoid colon. 2. No evidence of mechanical small bowel obstruction. 3. Partially imaged paraesophageal hernia present as before. 4. Small bilateral pleural effusions, left larger than right. Dictated by: Ziyad Verma M.D. on 10/09/2021 at 15:11 Approved by: Ziyad Verma M.D. on 10/09/2021 at 15:29
--- NOTE | 2021-10-09 13:57 | DI.CT.S_ITS ---
PROCEDURE: CT ANGIO CHEST PE PROTOCOL INDICATIONS: hypoxia recent admission TECHNIQUE: After the administration of intravenous contrast, 2 mm thick sections acquired from the pulmonary apices to the posterior costophrenic angles. 3-dimensional maximum intensity projection (MIP) coronal and sagittal reformats were then acquired through the thorax. For radiation dose reduction, the following was used: automated exposure control, adjustment of mA and/or kV according to patient size. COMPARISON: [facility], CT, CT ABDOMEN PELVIS W CON, 10/01/2021, 22:17. FINDINGS: Image quality: Excellent. Pulmonary arteries: Pulmonary arteries are normal in size, and demonstrate no intraluminal filling defects to suggest central pulmonary embolism. Lungs and pleura: There is moderate centrilobular emphysema with an apical predominance. A 2.1 cm in diameter centrally cavitary mass with spiculated margins is present within the lateral aspect of the left lower lobe. A calcified granuloma is present within the inferior right upper lobe. There is a small low-density left pleural effusion. This is increased in size from the study dated October 01, 2021. There is a new trace right pleural effusion as well. Mediastinum: Heart size is normal, without pericardial effusion. No mediastinal or hilar adenopathy. Thoracic aorta is normal in caliber and enhancement. Dense atheromatous calcifications are present within the aortic arch. Esophagus is normal in caliber. There is a large hiatal hernia. Bones and chest wall: No suspicious bony lesions. Ribs and thoracic spine appear intact throughout. A subcentimeter low-density cystic lesion is present within the left thyroid. The right thyroid gland is unremarkable. No axillary or supraclavicular adenopathy. Abdomen: Visualized upper abdominal solid organs appear normal in the early arterial phase of enhancement. IMPRESSION: 1. No acute pulmonary embolus. 2. Dense aortic atherosclerosis. 3. Large hiatal hernia. 4. Spiculated mass with central cavitation in the left lower lobe suspicious for neoplasm or necrotic pneumonia. 5. Increased size of the left pleural effusion and new trace right pleural effusion. Dictated by: Rufina Perry M.D. on 10/09/2021 at 14:46 Approved by: Rufina Perry M.D. on 10/09/2021 at 14:51
[2021-10-09 14:13] LABS: Appearance Urine UA CLEAR; Bilirubin Urine UA NEGATIVE (NEGATIVE); Color Urine UA YELLOW; Glucose Urine UA NEGATIVE (Negative); Ketones Urine UA NEGATIVE (NEGATIVE); Leukocyte Esterase Urine UA NEGATIVE (NEGATIVE); Nitrite Urine UA NEGATIVE (Negative); Occult Blood Urine UA NEGATIVE (Negative); Protein Urine UA NEGATIVE (Negative); Specific Gravity Urine UA 1.015 (1.000-1.035); Urobilinogen Urine UA 0.2 E.U./dL (0.2)
[2021-10-09 14:40] LABS: Bacteria Urine Few (2-10); Culture Indicated Urine Cult Not Indicated; RBC Urine None Seen (0-5/HPF); Squamous Epithelial Cell Urine 0-1 /HPF (0-5/HPF); WBC Urine 0-1/HPF (0-5/HPF)
[2021-10-09 15:56] LABS: NT-proBNP (BNP-Adult 18+) 535 pg/mL (<450)
== END 2021-10-09 16:39 | disposition home or self-care (01) ==
PROVIDERS: Emergency Provider Emergency Medicine; PCP Nurse Practitioner Family
DX: K59.00 Constipation, unspecified (principal); R91.8 Other nonspecific abnormal finding of lung field; R09.02 Hypoxemia; Z20.822 Contact with and (suspected) exposure to COVID-19
CPT/HCPCS: 36415; 71275; 74177; 80053; 81001; 83690; 83880; 85007; 85025; 87635; 93005; 93010; 96374; 96375; 99284; C9803; J2270; J2405; Q9967